=== PATIENT | male | born 1955 | race Caucasian/White ===

== ENCOUNTER 2019-12-26 10:12 | Inpatient (IN) | payer MEDICARE, OTHER ==
[2019-12-26] VITALS (10 sets, daily range): BP systolic 108–201; BP diastolic 58–99
[~2019-12-26] VITALS: Ht 182.9 cm; Wt 171.0 kg
[2019-12-26] MEDS ORDERED: FUROSEMIDE 40 MG/4 ML VIAL. IVP ONE (11:00)
[2019-12-26] MEDS ORDERED: IPRATRPIUM/ALBUTEROL 0.5/2.5MG 3 ML NEBU. NEB ONE (11:00)
[2019-12-26 11:01] LABS: BASO # 0.1 x10^3/uL (0.0-0.2); BASO % 1 % (0-3); EOS # 0.2 x10^3/uL (0.0-0.7); EOS % 2 % (0-3); HEMATOCRIT 41.8 % (39.0-53.0); HEMOGLOBIN 14.1 g/dL (13.0-17.5); LYMPH # 1.7 x10^3/uL (1.0-4.8); LYMPH % 14 % (24-48); MEAN CORPUSCULAR HEMOGLOBIN 29 pg (25-35); MEAN CORPUSCULAR HGB CONC 34 g/dL (31-37); MEAN CORPUSCULAR VOLUME 86 fL (79-100); MONO # 0.9 x10^3/uL (0.0-1.1); MONO % 8 % (0-9); NEUT # 8.9 x10^3/uL (1.8-7.7); NEUT % 75 % (31-73); PLATELET COUNT 239 x10^3/uL (140-400); RED BLOOD COUNT 4.88 x10^6/uL (4.30-5.70); RED CELL DISTRIBUTION WIDTH 14.6 % (11.5-14.5); WHITE BLOOD COUNT 11.8 x10^3/uL (4.0-11.0)
--- NOTE | 2019-12-26 11:08 | PHYS DOC ---
Past Medical History Past Medical History: A-Fib, CHF, COPD Past Surgical History: Other Additional Past Surgical Histo: HERNIA, LEFT HAND Smoking Status: Former Smoker Alcohol Use: Rarely Adult General Chief Complaint Chief Complaint: SHORTNESS OF BREATH HPI HPI 64-year-old male presenting to the emergency department today with shortness of breath. This started about a week ago. He had the flu 2 weeks ago and hasn't really been feeling himself since. Shortness of breath is worse with exertion. It is worse when he lays down. He has noticed swelling in his legs bilaterally. He denies chest pain or fevers. He denies unilateral leg pain or erythema. He denies history of DVT or PE. Review of systems negative for abdominal pain vomiting fevers chills. All other review of systems is negative. ED course: 64-year-old male presenting with shortness of breath found to be tachycardic in the emergency department. EKG shows sinus rhythm with a tachycardic rate. ST segments congruent. Not suggestive of acute ischemia. A flutter with 2:1 block considered. Chest x-ray and blood work ordered. Chest x- ray shows possible infiltrate versus home and her edema from acute CHF. Bilateral lower lobe airspace opacities possibly or flexing infectious versus inflammatory process pulmonary edema clinically favored over pneumonia. We did give the patient antibiotics however overall the patient's symptomatology is suggestive of a flutter with 21 block with tachycardia which is causing acute cardiogenic pulmonary edema. I spoke with nurse practitioner for cardiology who recommended 5 of IV metoprolol which we tried which did not change patient's heart rate. He then asked that we had digoxin. We did give the patient 40 mg of IV Lasix and broad-spectrum antibiotics. We'll admit the patient to the int ensive care unit until his arrhythmia can be more closely controlled. Spoke with the hospitalist who accepts the patient for admission. plasterer maintenance for cardiology was down in the emergency department seeing the patient , as did the hospitalist. D- dimer was elevated. Given the patient's creatinine level in GFR unable to do a CT angiogram. Will let the hospitalist pursue VQ scan and Dopplers of legs. Current Medications Current Medications Current Medications Medications (Trade) Dose Ordered Sig/Bruno Start Time Stop Time Status Last Admin Dose Admin Albuterol/ Ipratropium (Duoneb) 3 ml 1X ONCE 12/26/19 11:00 12/26/19 11:03 DC 12/26/19 11:16 3 ML Azithromycin 250 ml @ 250 mls/hr 1X ONCE 12/26/19 11:45 12/26/19 12:44 DC 12/26/19 12:16 250 MLS/HR Ceftriaxone Sodium (Rocephin) 1 gm 1X ONCE 12/26/19 11:45 12/26/19 11:46 DC 12/26/19 12:16 1 GM Digoxin (Lanoxin) 500 mcg 1X ONCE 12/26/19 13:15 12/26/19 13:16 DC Furosemide (Lasix) 40 mg 1X ONCE 12/26/19 11:00 12/26/19 11:03 DC 12/26/19 11:36 40 MG Metoprolol Tartrate (Lopressor Vial) 5 mg 1X ONCE 12/26/19 11:45 12/26/19 11:46 DC 12/26/19 11:41 5 MG Allergies Allergies Allergies Coded Allergies Type Severity Reaction Last Updated Verified sulfamethoxazole Allergy Severe Hives 12/26/19 Yes trimethoprim Allergy Severe Hives 12/26/19 Yes Physical Exam Physical Exam Constitutional: Well developed, well nourished, no acute distress, non-toxic appearance. HENT: Normocephalic, atraumatic, bilateral external ears normal, oropharynx moist, no oral exudates, nose normal. [] Eyes: PERRLA, EOMI, conjunctiva normal, no discharge. [] Neck: Normal range of motion, no tenderness, supple, no stridor. Cardiovascular: tachy heart rate w/ regular rhythm, no murmur [] Lungs & Thorax: wheezing on the right more than left. some crackles at the bases. Abdomen: Bowel sounds normal, soft, no tenderness, no masses, no pulsatile masses. [] Skin: Warm, dry, no erythema, no rash. Back: No tenderness, no CVA tenderness. [] Extremities: No tenderness, no cyanosis, no clubbing, ROM intact, no edema. [] Neurologic: Alert and oriented X 3, normal motor function, normal sensory function, no focal deficits noted. [] Psychologic: Affect normal, judgement normal, mood normal. [] Current Patient Data Vital Signs Vital Signs Date Time Temp Pulse Resp B/P (MAP) Pulse Ox O2 Delivery O2 Flow Rate FiO2 12/26/19 12:42 140 20 171/67 (101) 93 Room Air 12/26/19 10:25 98.1 98.1 Lab Values Laboratory Tests Test 12/26/19 10:47 White Blood Count 11.8 x10^3/uL (4.0-11.0) H Red Blood Count 4.88 x10^6/uL (4.30-5.70) Hemoglobin 14.1 g/dL (13.0-17.5) Hematocrit 41.8 % (39.0-53.0) Mean Corpuscular Volume 86 fL (79-100) Mean Corpuscular Hemoglobin 29 pg (25-35) Mean Corpuscular Hemoglobin Concent 34 g/dL (31-37) Red Cell Distribution Width 14.6 % (11.5-14.5) H Platelet Count 239 x10^3/uL (140-400) Neutrophils (%) (Auto) 75 % (31-73) H Lymphocytes (%) (Auto) 14 % (24-48) L Monocytes (%) (Auto) 8 % (0-9) Eosinophils (%) (Auto) 2 % (0-3) Basophils (%) (Auto) 1 % (0-3) Neutrophils # (Auto) 8.9 x10^3/uL (1.8-7.7) H Lymphocytes # (Auto) 1.7 x10^3/uL (1.0-4.8) Monocytes # (Auto) 0.9 x10^3/uL (0.0-1.1) Eosinophils # (Auto) 0.2 x10^3/uL (0.0-0.7) Basophils # (Auto) 0.1 x10^3/uL (0.0-0.2) Prothrombin Time 14.2 SEC (11.7-14.0) H Prothrombin Time INR 1.1 (0.8-1.1) Activated Partial Thromboplast Time 28 SEC (24-38) D-Dimer (Yokasta) 0.96 ug/mlFEU (0.00-0.50) H Sodium Level 141 mmol/L (136-145) Potassium Level 4.3 mmol/L (3.5-5.1) Chloride Level 103 mmol/L (98-107) Carbon Dioxide Level 26 mmol/L (21-32) Anion Gap 12 (6-14) Blood Urea Nitrogen 23 mg/dL (8-26) Creatinine 1.7 mg/dL (0.7-1.3) H Estimated GFR (Cockcroft-Gault) 40.9 Glucose Level 111 mg/dL (70-99) H Lactic Acid Level 1.8 mmol/L (0.4-2.0) Calcium Level 9.1 mg/dL (8.5-10.1) Total Bilirubin 0.9 mg/dL (0.2-1.0) Direct Bilirubin 0.3 mg/dL (0.0-0.2) H Aspartate Amino Transferase (AST) 18 U/L (15-37) Alanine Aminotransferase (ALT) 27 U/L (16-63) Alkaline Phosphatase 60 U/L (46-116) Troponin I Quantitative < 0.017 ng/mL (0.000-0.055) [id number]-Type Natriuretic Peptide 3867 pg/mL (0-124) H Total Protein 6.8 g/dL (6.4-8.2) Albumin 3.2 g/dL (3.4-5.0) L Lipase 103 U/L (73-393) Laboratory Tests 12/26/19 10:47 Laboratory Tests 12/26/19 10:47 EKG EKG [] Radiology/Procedures Radiology/Procedures [] Course & Med Decision Making Course & Med Decision Making Pertinent Labs and Imaging studies reviewed. (See chart for details) [] Dragon Disclaimer Dragon Disclaimer This electronic medical record was generated, in whole or in part, using a voice recognition dictation system. Departure Departure Impression: Primary Impression: Atrial flutter Additional Impression: Cardiogenic pulmonary edema Disposition: ADMITTED INPATIENT [facility]errals: TIMUR CHRISTOPHER MD (PCP) Critical Care Time Critical care time spent was 35 minutes exclusive of procedures. Time was spent evaluating the patient, ordering the administration of medications, reevaluating the patient, discussing with the admitting provider and documenting. Problem Qualifiers ELIZABETH ENCARNACION MD Dec 26, 2019 11:08
[2019-12-26 11:10] LABS: CALCIUM 9.1 mg/dL (8.5-10.1); CREATININE 1.7 mg/dL (0.7-1.3); GFR 40.9; POTASSIUM 4.3 mmol/L (3.5-5.1); PROTHROMBIN TIME PATIENT 14.2 SEC (11.7-14.0)
--- NOTE | 2019-12-26 11:14 | RAD ---
EXAM: Chest, single view. HISTORY: Chest pain. COMPARISON: None. FINDINGS: A frontal view of the chest is obtained. There is diffuse lower lobe predominant interstitial infiltrate with suspected small pleural effusions. There is a mildly enlarged cardiac silhouette. There is no pneumothorax. IMPRESSION: Diffuse lower lobe predominant interstitial infiltrate with small pleural effusions and prominent cardiac silhouette. Electronically signed by: Amie Watson MD (12/26/2019 11:11 AM) [facility] [place]
[2019-12-26] MEDS ORDERED: METOPROLOL TARTRATE 5 MG/5 ML VIAL. IVP ONE ×2 (11:15→11:45)
[2019-12-26 11:16] LABS: ALBUMIN 3.2 g/dL (3.4-5.0); DIRECT BILIRUBIN 0.3 mg/dL (0.0-0.2); TOTAL BILIRUBIN 0.9 mg/dL (0.2-1.0); TOTAL PROTEIN 6.8 g/dL (6.4-8.2)
[2019-12-26 11:29] LABS: D-DIMER 0.96 ug/mlFEU (0.00-0.50)
[2019-12-26] MEDS ORDERED: AZITHRMYCN 500MG IVPB FOR OMNI 250 ML IV ONE (11:45)
[2019-12-26] MEDS ORDERED: cefTRIAXone IV Push 1 GM VIAL. IVP ONE (11:45)
--- NOTE | 2019-12-26 12:48 | PDOC2 ---
CARDIAC CONSULT DATE OF CONSULT Date of Consult DATE: 12/26/19 TIME: 12:40 REASON FOR CONSULT Reason for Consult: CHF, tachycardia REFERRING PHYSICIAN Referring Physician: Viridiana SOURCE Source: Chart review, Patient HISTORY OF PRESENT ILLNESS HISTORY OF PRESENT ILLNESS This is a pleasant 64 yo male admitted for complains of shortness of breath. Reported that he has been having some SOA in the last 2 weeks. This has been worse last Tuesday to a point that it was hard for him to walk further distance without getting SOA. No chest pain and no sensation of palpitations. Denies any frequent dizziness. He does have leg swelling on both but is no different from his baseline and that this gets better with elevation and denies any recent long distance travel and no recent falls or injury or recent surgery. He did claimed possibly having the flu not too long ago. Positive for intermittent but nonproductive cough. Positive for PND, and orthopnea and no chills or fever. He takes 2 BP meds and he does have renal insufficiency. He has been noted with AFIB in the past 10 yrs ago initially but has not seen a founder president and ceo for at least 5 yrs and he does goes to his PCP. He does not take ASA regularly. No DM but takes statin for HLP. He was told that he may need a CPAP for ANALI in remote past but decided not to pursue this. His BP particularly his DBP has been ranging from 90-100s. No hx of CAD, VTE nor CVA. PAST MEDICAL HISTORY Cardiovascular: AFIB (initially noted 10 yrs ago), HTN, Hyperlipidemia Pulmonary: Asthma, COPD CENTRAL NERVOUS SYSTEM: Other (No pertinent history) GI: No pertinent hx Heme/Onc: No pertinent hx Hepatobiliary: No pertinent hx Psych: No pertinent hx Musculoskeletal: Osteoarthritis Rheumatologic: No pertinent hx Infectious disease: No pertinent hx ENT: No pertinent hx Renal/: Chronic renal insuff (CKD3) Endocrine: No pertinent hx Dermatology: No pertinent hx PAST SURGICAL HISTORY Past Surgical History: Arthroscopy (left hand), Hernia Repair (ventral) FAMILY HISTORY Family History noncontributory SOCIAL HISTORY Smoke: Quit ALCOHOL: none Drugs: None Lives: with Family (sister) CURRENT MEDICATIONS CURRENT MEDICATIONS Current Medications Medications (Trade) Dose Ordered Sig/Bruno Route PRN Reason Start Time Stop Time Status Last Admin Dose Admin Furosemide (Lasix) 40 mg 1X ONCE IVP 12/26/19 11:00 12/26/19 11:03 DC 12/26/19 11:36 Albuterol/ Ipratropium (Duoneb) 3 ml 1X ONCE NEB 12/26/19 11:00 12/26/19 11:03 DC 12/26/19 11:16 Metoprolol Tartrate (Lopressor Vial) 5 mg 1X ONCE IVP 12/26/19 11:45 12/26/19 11:46 DC 12/26/19 11:41 Azithromycin 250 ml @ 250 mls/hr 1X ONCE IV 12/26/19 11:45 12/26/19 12:44 12/26/19 12:16 Ceftriaxone Sodium (Rocephin) 1 gm 1X ONCE IVP 12/26/19 11:45 12/26/19 11:46 DC 12/26/19 12:16 ALLERGIES ALLERGIES: Coded Allergies: sulfamethoxazole (Verified Allergy, Severe, Hives, 12/26/19) trimethoprim (Verified Allergy, Severe, Hives, 12/26/19) ROS Review of System 14 point ROS evaluated with pertinent positives noted per HPI PHYSICAL EXAM General: Alert, Oriented X3, Cooperative, No acute distress HEENT: Mucous membr. moist/pink Lungs: Other (basilar crackles) Heart: Regular rate, Other (distant heart sonds unable to appreciate due to body habitus) Extremities: No cyanosis, Other (2+ bilateral LE pitting edema) Skin: No breakdown, No significant lesion Neuro: Normal speech, Sensation intact Psych/Mental Status: Mental status NL, Mood NL MUSCULOSKELETAL: Osteoarthritic changes both hands VITALS/I&O VITALS/I&O: Vital Signs Date Time Temp Pulse Resp B/P (MAP) Pulse Ox O2 Delivery O2 Flow Rate FiO2 12/26/19 11:41 140 137/77 12/26/19 11:13 94 Room Air 12/26/19 10:25 98.1 20 98.1 LABS Lab: Laboratory Tests Test 12/26/19 10:47 White Blood Count 11.8 x10^3/uL (4.0-11.0) H Red Blood Count 4.88 x10^6/uL (4.30-5.70) Hemoglobin 14.1 g/dL (13.0-17.5) Hematocrit 41.8 % (39.0-53.0) Mean Corpuscular Volume 86 fL (79-100) Mean Corpuscular Hemoglobin 29 pg (25-35) Mean Corpuscular Hemoglobin Concent 34 g/dL (31-37) Red Cell Distribution Width 14.6 % (11.5-14.5) H Platelet Count 239 x10^3/uL (140-400) Neutrophils (%) (Auto) 75 % (31-73) H Lymphocytes (%) (Auto) 14 % (24-48) L Monocytes (%) (Auto) 8 % (0-9) Eosinophils (%) (Auto) 2 % (0-3) Basophils (%) (Auto) 1 % (0-3) Neutrophils # (Auto) 8.9 x10^3/uL (1.8-7.7) H Lymphocytes # (Auto) 1.7 x10^3/uL (1.0-4.8) Monocytes # (Auto) 0.9 x10^3/uL (0.0-1.1) Eosinophils # (Auto) 0.2 x10^3/uL (0.0-0.7) Basophils # (Auto) 0.1 x10^3/uL (0.0-0.2) Prothrombin Time 14.2 SEC (11.7-14.0) H Prothrombin Time INR 1.1 (0.8-1.1) Activated Partial Thromboplast Time 28 SEC (24-38) D-Dimer (Yokasta) 0.96 ug/mlFEU (0.00-0.50) H Sodium Level 141 mmol/L (136-145) Potassium Level 4.3 mmol/L (3.5-5.1) Chloride Level 103 mmol/L (98-107) Carbon Dioxide Level 26 mmol/L (21-32) Anion Gap 12 (6-14) Blood Urea Nitrogen 23 mg/dL (8-26) Creatinine 1.7 mg/dL (0.7-1.3) H Estimated GFR (Cockcroft-Gault) 40.9 Glucose Level 111 mg/dL (70-99) H Calcium Level 9.1 mg/dL (8.5-10.1) Total Bilirubin 0.9 mg/dL (0.2-1.0) Direct Bilirubin 0.3 mg/dL (0.0-0.2) H Aspartate Amino Transferase (AST) 18 U/L (15-37) Alanine Aminotransferase (ALT) 27 U/L (16-63) Alkaline Phosphatase 60 U/L (46-116) Troponin I Quantitative < 0.017 ng/mL (0.000-0.055) MC-Wke-T-Type Natriuretic Peptide 3867 pg/mL (0-124) H Total Protein 6.8 g/dL (6.4-8.2) Albumin 3.2 g/dL (3.4-5.0) L Lipase 103 U/L (73-393) Laboratory Tests 12/26/19 10:47 Laboratory Tests 12/26/19 10:47 ASSESSMENT/PLAN ASSESSMENT/PLAN 1. Acute diastolic CHF: likely precipitated by #2-3 and ANALI 2. HTN urgency 3. Arrhythmia: appears to be atrial flutter with RVR 4. COPD 5. CKD3: unclear baseline Cr 6. Hx of ANALI; no CPAP use 7. Morbid obesity 8. Remote hx of PAFIB 9. Chronic Venous insufficiency 10. HLP Recommendations 1. Lasix therapy. Lopressor IV and if refractory the will provide with digoxin. 2. TSH, lipids Mg. V/Q pending..TTE once HR is better 3. Will trend BP and will titrate meds once home regimen is reviewed. ASA for now, monitor rhythm 4. Will need outpt ANALI workup and wt reduction SULAIMAN GRAVES APRN Dec 26, 2019 12:48
[2019-12-26] MEDS ORDERED: DIGOXIN IV 500 MCG/2 ML AMPUL. IV ONE (13:15)
--- NOTE | 2019-12-26 13:21 | RAD ---
EXAM: CT Chest without IV contrast CLINICAL HISTORY: Pneumonia, shortness of air COMPARISON: None. TECHNIQUE: CT of the chest without intravenous contrast. Axial, coronal and sagittal reformatted images were generated. ---PQRS compliance statement - One or more of the following individualized dose reduction techniques were utilized for this study: 1. Automated exposure control 2. Adjustment of the mA and/or kV according to patient size 3. Use of iterative reconstruction technique--- FINDINGS: Lack of intravenous contrast limits evaluation of solid organs, vasculature, and lymph nodes. Chest: Heart is mildly enlarged. Coronary artery calcifications are seen. Aortic root calcifications are noted. Small bilateral pleural effusions. Dependent opacities bilaterally likely atelectasis. In addition there are regions of groundglass and solid airspace opacities in the lower lobes suspicious for developing atypical infectious or inflammatory process. Linear opacities lower lobes, middle lobe and lingula likely scarring/atelectasis. There is also mild interstitial prominence particularly in the lung bases. Evaluation of mediastinal and hilar lymphadenopathy is limited on this noncontrast examination. Within these constraints there are suspected mildly prominent hilar lymph nodes, may be reactive. Bilateral gynecomastia. No axillary lymphadenopathy. Visualized Upper abdomen: Upper abdomen is grossly unremarkable. Bones: Degenerative changes of spine are seen. IMPRESSION: 1. Bilateral lower lobe predominant airspace opacities with bilateral pleural effusions, favored to represent infectious or inflammatory process. 2. However as mild interstitial prominence is seen predominantly in the lower lungs, pulmonary edema is also a consideration. 3. Bilateral gynecomastia. 4. Mild cardiac megaly. Electronically signed by: Con Hwang MD (12/26/2019 1:18 PM) [facility]
[2019-12-26] MEDS ORDERED: ASPIRIN ENTERIC COATED 325 MG TABLET.DR. PO ONE (13:30)
[2019-12-26 14:09] LABS: BILIRUBIN,URINE NEGATIVE (NEG); CLARITY,URINE CLEAR; COLOR,URINE YELLOW; NITRITE,URINE NEGATIVE (NEG); PH,URINE 6.5; PROTEIN,URINE NEGATIVE (NEG-TRACE); UROBILINOGEN,URINE 0.2 mg/dL (0.2 mg/dL)
[2019-12-26 14:21] LABS: BACTERIA,URINE 0 /HPF (0-FEW); RBC,URINE 0 /HPF (0-2); SQUAMOUS EPITHELIAL CELL,UR OCC /LPF; WBC,URINE 0 /HPF (0-4)
--- NOTE | 2019-12-26 14:30 | RAD ---
NUCLEAR MEDICINE VENTILATION PERFUSION SCAN History: Shortness of air x3 days. Comparison: CT chest without contrast, earlier same day. Technique: Patient initially ventilated with 9.8 mCi of xenon-133 gas. Anterior and posterior imaging of the lungs during initial breath-hold, equilibrium and, washout phase images is performed. Perfusion portion performed after intravenous administration of 5.5 mCi Technetium 99m MAA. Multiple projection planar images of the lungs were obtained. Findings: The initial breath-hold ventilation images are homogeneous. There is no retention of tracer on the washout phase images. Perfusion images demonstrate no mismatched segmental perfusion defects. IMPRESSION: Normal VQ scan. Negative for pulmonary embolism. Electronically signed by: Steve Bautista MD (12/26/2019 2:27 PM) [id number]
[2019-12-26] MEDS ORDERED: AMLO-308 PO (14:45)
[2019-12-26] MEDS ORDERED: ATOR20TA58 PO (14:45)
[2019-12-26] MEDS ORDERED: CARV25TA2 PO (14:45)
--- NOTE | 2019-12-26 14:45 | EKG ---
[facility] [address] [place] [address] Test Date: 2019-12-26 Test Time: 10:40:20 Pat Name: MILENA WESLEY Department: Room: Gender: M Manager Resort: : 1955 Requested By: ELIZABETH ENCARNACION Order Number: [id number] Reading MD: Measurements Intervals Junction Rate: 139 P: 72 NM: 110 QRS: -31 QRSD: 96 T: -138 QT: 308 QTc: 473 Interpretive Statements SINUS TACHYCARDIA ABNORMAL LEFT AXIS DEVIATION R-S TRANSITION ZONE IN V LEADS DISPLACED TO THE LEFT LVH WITH REPOLARIZATION ABNORMALITY ABNORMAL ECG No previous ECG available for comparison
--- NOTE | 2019-12-26 15:11 | PDOC1 ---
History and Physical Date of Admission Date of Admission 12/26/2019 Identification/Chief Complaint Chief Complaint I could not breathe History of Present Illness History of Present Illness Patient is a 64-year-old gentleman with past medical history of congestive heart failure with reduced ejection fraction that subsequently recovered as per the patient's report. The patient also has essential hypertension without vascular morbidities on top of being morbidly obese. The patient had been in his usual state of health until approximately 2-3 weeks prior to his admission when he started noticing worsening dyspnea upon exertion. The patient had to repeatedly soon low down and stop at times while doing activities shoveling snow or even just walking long distances. The patient also reports versus nocturnal dyspnea nor orthopnea has been reported. The patient denies increased salt intake and he denies dietary transgressions nor being noncompliant with his medications. The patient at the time my evaluation is in no apparent distress nevertheless he is having probably increase in his work of breathing and tachycardia. The patient is able to finish sentences. We were asked to admit the patient for further treatment. Past Medical History Cardiovascular: AFIB (initially noted 10 yrs ago), HTN, Hyperlipidemia Pulmonary: Asthma, COPD CENTRAL NERVOUS SYSTEM: Other (No pertinent history) GI: No pertinent hx Heme/Onc: No pertinent hx Hepatobiliary: No pertinent hx Psych: No pertinent hx Rheumatologic: No pertinent hx Infectious disease: No pertinent hx ENT: No pertinent hx Renal/: Chronic renal insuff (CKD3) Endocrine: No pertinent hx Dermatology: No pertinent hx Past Surgical History Past Surgical History: Arthroscopy (left hand), Hernia Repair (ventral) Social History Smoke: Quit ALCOHOL: none Drugs: None Current Problem List Problem List Problems Medical Problems: (1) Atrial flutter Status: Acute (2) Cardiogenic pulmonary edema Status: Acute Current Medications Current Medications Current Medications Medications (Trade) Dose Ordered Sig/Bruno Start Time Stop Time Status Last Admin Dose Admin Albuterol/ Ipratropium (Duoneb) 3 ml 1X ONCE 12/26/19 11:00 12/26/19 11:03 DC 12/26/19 11:16 3 ML Aspirin (Ecotrin) 325 mg 1X ONCE 12/26/19 13:30 12/26/19 13:31 DC 12/26/19 13:35 325 MG Azithromycin 250 ml @ 250 mls/hr 1X ONCE 12/26/19 11:45 12/26/19 12:44 DC 12/26/19 12:16 250 MLS/HR Ceftriaxone Sodium (Rocephin) 1 gm 1X ONCE 12/26/19 11:45 12/26/19 11:46 DC 12/26/19 12:16 1 GM Digoxin (Lanoxin) 500 mcg 1X ONCE 12/26/19 13:15 12/26/19 13:16 DC 12/26/19 13:23 500 MCG Furosemide (Lasix) 40 mg 1X ONCE 12/26/19 11:00 12/26/19 11:03 DC 12/26/19 11:36 40 MG Metoprolol Tartrate (Lopressor Vial) 5 mg 1X ONCE 12/26/19 11:45 12/26/19 11:46 DC 12/26/19 11:41 5 MG Allergies Allergies Allergies Coded Allergies Type Severity Reaction Last Updated Verified sulfamethoxazole Allergy Severe Hives 12/26/19 Yes trimethoprim Allergy Severe Hives 12/26/19 Yes ROS Review of System CONSTITUTIONAL: No fever or chills EYES: No recent changes SKIN: No rash or itching CARDIOVASCULAR: No chest pain, syncope, palpitations, or edema RESPIRATORY: No SOB or cough GASTROINTESTINAL: No nausea, vomiting or abdominal pain NEUROLOGICAL: No headaches or weakness ENDOCRINE: No cold or heat intolerance GENITOURINARY: No urgency or frequency of urination MUSCULOSKELETAL: No back pain or joint pain LYMPHATICS: No enlarged lymph nodes PSYCHIATRIC: No anxiety or depression Physical Exam Physical Exam GEN.: No apparent distress. Alert and oriented. HEENT: Head is normocephalic, atraumatic NECK: Supple. LUNGS: Clear to auscultation. HEART: RRR, S1, S2 present. Peripheral pulses intact ABDOMEN: Soft, nontender. Positive bowel sounds. EXTREMITIES: Without any cyanosis. NEUROLOGIC: Normal speech, normal tone PSYCHIATRIC: Normal affect, normal mood. SKIN: No ulcerations Vitals Vitals Vital Signs Date Time Temp Pulse Resp B/P (MAP) Pulse Ox O2 Delivery O2 Flow Rate FiO2 12/26/19 14:15 97.9 129 27 134/85 (101) 96 Nasal Cannula 2.0 97.9 Labs Labs Laboratory Tests Test 12/26/19 10:47 12/26/19 13:37 White Blood Count 11.8 x10^3/uL (4.0-11.0) Red Blood Count 4.88 x10^6/uL (4.30-5.70) Hemoglobin 14.1 g/dL (13.0-17.5) Hematocrit 41.8 % (39.0-53.0) Mean Corpuscular Volume 86 fL (79-100) Mean Corpuscular Hemoglobin 29 pg (25-35) Mean Corpuscular Hemoglobin Concent 34 g/dL (31-37) Red Cell Distribution Width 14.6 % (11.5-14.5) Platelet Count 239 x10^3/uL (140-400) Neutrophils (%) (Auto) 75 % (31-73) Lymphocytes (%) (Auto) 14 % (24-48) Monocytes (%) (Auto) 8 % (0-9) Eosinophils (%) (Auto) 2 % (0-3) Basophils (%) (Auto) 1 % (0-3) Neutrophils # (Auto) 8.9 x10^3/uL (1.8-7.7) Lymphocytes # (Auto) 1.7 x10^3/uL (1.0-4.8) Monocytes # (Auto) 0.9 x10^3/uL (0.0-1.1) Eosinophils # (Auto) 0.2 x10^3/uL (0.0-0.7) Basophils # (Auto) 0.1 x10^3/uL (0.0-0.2) Prothrombin Time 14.2 SEC (11.7-14.0) Prothromb Time International Ratio 1.1 (0.8-1.1) Activated Partial Thromboplast Time 28 SEC (24-38) D-Dimer (Yokasta) 0.96 ug/mlFEU (0.00-0.50) Sodium Level 141 mmol/L (136-145) Potassium Level 4.3 mmol/L (3.5-5.1) Chloride Level 103 mmol/L (98-107) Carbon Dioxide Level 26 mmol/L (21-32) Anion Gap 12 (6-14) Blood Urea Nitrogen 23 mg/dL (8-26) Creatinine 1.7 mg/dL (0.7-1.3) Estimated GFR (Cockcroft-Gault) 40.9 Glucose Level 111 mg/dL (70-99) Lactic Acid Level 1.8 mmol/L (0.4-2.0) Calcium Level 9.1 mg/dL (8.5-10.1) Magnesium Level 1.9 mg/dL (1.8-2.4) Total Bilirubin 0.9 mg/dL (0.2-1.0) Direct Bilirubin 0.3 mg/dL (0.0-0.2) Aspartate Amino Transf (AST/SGOT) 18 U/L (15-37) Alanine Aminotransferase (ALT/SGPT) 27 U/L (16-63) Alkaline Phosphatase 60 U/L (46-116) Troponin I Quantitative < 0.017 ng/mL (0.000-0.055) LV-Yry-N-Type Natriuretic Peptide 3867 pg/mL (0-124) Total Protein 6.8 g/dL (6.4-8.2) Albumin 3.2 g/dL (3.4-5.0) Lipase 103 U/L (73-393) Thyroid Stimulating Hormone (TSH) 4.159 uIU/mL (0.358-3.74) Urine Collection Type Unknown Urine Color Yellow Urine Clarity Clear Urine pH 6.5 Urine Specific [place] 1.010 Urine Protein Negative mg/dL (NEG-TRACE) Urine Glucose (UA) Negative mg/dL (NEG) Urine Ketones (Stick) Negative mg/dL (NEG) Urine Blood Negative (NEG) Urine Nitrite Negative (NEG) Urine Bilirubin Negative (NEG) Urine Urobilinogen Dipstick 0.2 mg/dL (0.2 mg/dL) Urine Leukocyte Esterase Negative (NEG) Urine RBC 0 /HPF (0-2) Urine WBC 0 /HPF (0-4) Urine Squamous Epithelial Cells Occ /LPF Urine Bacteria 0 /HPF (0-FEW) Urine Mucus Slight /LPF Laboratory Tests Test 12/26/19 10:47 12/26/19 13:37 White Blood Count 11.8 x10^3/uL (4.0-11.0) Red Blood Count 4.88 x10^6/uL (4.30-5.70) Hemoglobin 14.1 g/dL (13.0-17.5) Hematocrit 41.8 % (39.0-53.0) Mean Corpuscular Volume 86 fL (79-100) Mean Corpuscular Hemoglobin 29 pg (25-35) Mean Corpuscular Hemoglobin Concent 34 g/dL (31-37) Red Cell Distribution Width 14.6 % (11.5-14.5) Platelet Count 239 x10^3/uL (140-400) Neutrophils (%) (Auto) 75 % (31-73) Lymphocytes (%) (Auto) 14 % (24-48) Monocytes (%) (Auto) 8 % (0-9) Eosinophils (%) (Auto) 2 % (0-3) Basophils (%) (Auto) 1 % (0-3) Neutrophils # (Auto) 8.9 x10^3/uL (1.8-7.7) Lymphocytes # (Auto) 1.7 x10^3/uL (1.0-4.8) Monocytes # (Auto) 0.9 x10^3/uL (0.0-1.1) Eosinophils # (Auto) 0.2 x10^3/uL (0.0-0.7) Basophils # (Auto) 0.1 x10^3/uL (0.0-0.2) Prothrombin Time 14.2 SEC (11.7-14.0) Prothromb Time International Ratio 1.1 (0.8-1.1) Activated Partial Thromboplast Time 28 SEC (24-38) D-Dimer (Yokasta) 0.96 ug/mlFEU (0.00-0.50) Sodium Level 141 mmol/L (136-145) Potassium Level 4.3 mmol/L (3.5-5.1) Chloride Level 103 mmol/L (98-107) Carbon Dioxide Level 26 mmol/L (21-32) Anion Gap 12 (6-14) Blood Urea Nitrogen 23 mg/dL (8-26) Creatinine 1.7 mg/dL (0.7-1.3) Estimated GFR (Cockcroft-Gault) 40.9 Glucose Level 111 mg/dL (70-99) Lactic Acid Level 1.8 mmol/L (0.4-2.0) Calcium Level 9.1 mg/dL (8.5-10.1) Magnesium Level 1.9 mg/dL (1.8-2.4) Total Bilirubin 0.9 mg/dL (0.2-1.0) Direct Bilirubin 0.3 mg/dL (0.0-0.2) Aspartate Amino Transf (AST/SGOT) 18 U/L (15-37) Alanine Aminotransferase (ALT/SGPT) 27 U/L (16-63) Alkaline Phosphatase 60 U/L (46-116) Troponin I Quantitative < 0.017 ng/mL (0.000-0.055) ZQ-Qbt-V-Type Natriuretic Peptide 3867 pg/mL (0-124) Total Protein 6.8 g/dL (6.4-8.2) Albumin 3.2 g/dL (3.4-5.0) Lipase 103 U/L (73-393) Thyroid Stimulating Hormone (TSH) 4.159 uIU/mL (0.358-3.74) Urine Collection Type Unknown Urine Color Yellow Urine Clarity Clear Urine pH 6.5 Urine Specific [place] 1.010 Urine Protein Negative mg/dL (NEG-TRACE) Urine Glucose (UA) Negative mg/dL (NEG) Urine Ketones (Stick) Negative mg/dL (NEG) Urine Blood Negative (NEG) Urine Nitrite Negative (NEG) Urine Bilirubin Negative (NEG) Urine Urobilinogen Dipstick 0.2 mg/dL (0.2 mg/dL) Urine Leukocyte Esterase Negative (NEG) Urine RBC 0 /HPF (0-2) Urine WBC 0 /HPF (0-4) Urine Squamous Epithelial Cells Occ /LPF Urine Bacteria 0 /HPF (0-FEW) Urine Mucus Slight /LPF VTE Prophylaxis Ordered VTE Prophylaxis Devices: No VTE Pharmacological Prophylaxi: Yes Assessment/Plan Assessment/Plan Hypertensive urgency Acute exacerbation of congestive heart failure which seems to be chronic most likely systolic dysfunction combined with diastolic dysfunction Morbid obesity with a BMI of 51 Obesity hypoventilation syndrome Essential hypertension Leukocytosis Elevated d-dimer Chronic kidney disease stage IIIA Plan We'll order echocardiogram Venous Doppler ultrasound of the lower extremities Questionable bibasilar infiltrates on x-ray which will require a CT of the chest noncontrast given renal dysfunction Resume home medications Further recommendations based on the clinical course We'll start diuresis with Bumex DVT prophylaxis with Lovenox ERICK BOUCHER MD Dec 26, 2019 15:11
[2019-12-26] MEDS ORDERED: ACETAMINOPHEN 325 MG TABLET. PO PRN (15:15)
[2019-12-26] MEDS ORDERED: ONDANSETRON PF 4 MG/2 ML VIAL. IV PRN (15:15)
[2019-12-26] MEDS ORDERED: ALBUTEROL SULFATE 2.5 MG/3 ML NEBU. NEB PRN (15:15)
[2019-12-26] MEDS ORDERED: guaiFENesin ORAL 200 MG/10 ML LIQUID. PO PRN (15:15)
[2019-12-26] MEDS ORDERED: BUMETANIDE 1 MG/4 ML VIAL. IV SCH (15:15)
[2019-12-26] MEDS ORDERED: DOCUSATE SODIUM 100 MG CAPSULE. PO PRN (15:15)
--- NOTE | 2019-12-26 16:27 | RAD ---
EXAM: Bilateral lower extremity venous Doppler sonogram. HISTORY: Pain and swelling. TECHNIQUE: Bur[place]on scale and color Doppler sonographic evaluation of the bilateral lower extremity veins with spectral waveform analysis was performed. FINDINGS: There is normal color flow, normal compressibility and there are normal spectral waveforms in the common femoral, superficial femoral, popliteal, posterior tibial and greater saphenous veins. IMPRESSION: No Doppler evidence of lower extremity deep venous thrombosis. Electronically signed by: Amie Watson MD (12/26/2019 4:25 PM) [facility] [place]
[2019-12-26] MEDS ORDERED: CARVEDILOL 12.5 MG TABLET. PO SCH (17:00)
[2019-12-26] MEDS ORDERED: LOSARTAN POTASSIUM 50 MG TABLET. PO SCH (17:00)
[2019-12-26] MEDS ORDERED: amLODIPine BESYLATE 5 MG TABLET PO SCH (17:00)
[2019-12-26] MEDS: METOPROLOL TART IMMED RELEASE 25 MG TABLET. PO SCH ×2 (17:22→23:43)
--- NOTE | 2019-12-26 18:55 | NUR ---
Dr. Green call for AFIB-AFlutter. Per Dr. Green, continue with Metoprolol 25 mg every 6 hours.
[2019-12-26] MEDS ORDERED: ENOXAPARIN 40 MG/0.4 ML SYRINGE. SQ SCH (21:00)
[2019-12-26] MEDS: ATORVASTATIN CALCIUM 20 MG TABLET PO SCH (22:03)
[2019-12-27] VITALS (22 sets, daily range): BP systolic 127–212; BP diastolic 70–133
[2019-12-27 05:30] LABS: BASO # 0.1 x10^3/uL (0.0-0.2); BASO % 1 % (0-3); EOS # 0.2 x10^3/uL (0.0-0.7); EOS % 2 % (0-3); HEMATOCRIT 39.6 % (39.0-53.0); HEMOGLOBIN 13.2 g/dL (13.0-17.5); LYMPH # 1.6 x10^3/uL (1.0-4.8); LYMPH % 18 % (24-48); MEAN CORPUSCULAR HEMOGLOBIN 29 pg (25-35); MEAN CORPUSCULAR HGB CONC 33 g/dL (31-37); MEAN CORPUSCULAR VOLUME 85 fL (79-100); MONO # 0.7 x10^3/uL (0.0-1.1); MONO % 8 % (0-9); NEUT # 6.5 x10^3/uL (1.8-7.7); NEUT % 71 % (31-73); PLATELET COUNT 200 x10^3/uL (140-400); RED BLOOD COUNT 4.63 x10^6/uL (4.30-5.70); RED CELL DISTRIBUTION WIDTH 14.6 % (11.5-14.5); WHITE BLOOD COUNT 9.1 x10^3/uL (4.0-11.0)
[2019-12-27 05:50] LABS: CALCIUM 8.5 mg/dL (8.5-10.1); CREATININE 1.6 mg/dL (0.7-1.3); GFR 43.9; POTASSIUM 3.9 mmol/L (3.5-5.1)
[2019-12-27 05:52] LABS: CHOLESTEROL/HDL RATIO 2.8
[2019-12-27] MEDS: METOPROLOL TART IMMED RELEASE 25 MG TABLET. PO SCH ×4 (06:02→23:37)
[2019-12-27] MEDS ORDERED: PERFLUTREN PROTEIN-A MICROSPHR 0.22 MG/ML 3 ML VIAL. IV ONE (08:02)
[2019-12-27] MEDS: BUMETANIDE 1 MG/4 ML VIAL. IV SCH (08:04)
[2019-12-27] MEDS ORDERED: DIGOXIN IV 500 MCG/2 ML AMPUL. IV ONE (09:45)
[2019-12-27] MEDS: dilTIAZem INJ 125 MG in IV NORMAL SALINE 100ML 100 ML IV PRN (10:43)
--- NOTE | 2019-12-27 11:11 | PDOC ---
CARDIO Progress Notes Date and Time Date of Service 12/27/2019 Time of Evaluation 1040 Subjective Subjective: No Chest Pain, No Palpitations, Other (SOA much better) Vitals Vitals Vital Signs Date Time Temp Pulse Resp B/P (MAP) Pulse Ox O2 Delivery O2 Flow Rate FiO2 12/27/19 09:58 145 140/98 12/27/19 09:00 21 94 Nasal Cannula 2.0 12/27/19 08:00 97.7 97.7 Weight Weight [ ] Input and Output Intake and Output Intake and Output 12/27/19 07:04 Intake Total 250 ml Output Total 2150 ml Balance -1900 ml Intake IV Total 250 ml Output Urine Total 2150 ml # Voids 1 Laboratory Labs Laboratory Tests Test 12/26/19 13:37 12/27/19 04:10 Urine Collection Type Unknown Urine Color Yellow Urine Clarity Clear Urine pH 6.5 Urine Specific [place] 1.010 Urine Protein Negative mg/dL (NEG-TRACE) Urine Glucose (UA) Negative mg/dL (NEG) Urine Ketones (Stick) Negative mg/dL (NEG) Urine Blood Negative (NEG) Urine Nitrite Negative (NEG) Urine Bilirubin Negative (NEG) Urine Urobilinogen Dipstick 0.2 mg/dL (0.2 mg/dL) Urine Leukocyte Esterase Negative (NEG) Urine RBC 0 /HPF (0-2) Urine WBC 0 /HPF (0-4) Urine Squamous Epithelial Cells Occ /LPF Urine Bacteria 0 /HPF (0-FEW) Urine Mucus Slight /LPF White Blood Count 9.1 x10^3/uL (4.0-11.0) Red Blood Count 4.63 x10^6/uL (4.30-5.70) Hemoglobin 13.2 g/dL (13.0-17.5) Hematocrit 39.6 % (39.0-53.0) Mean Corpuscular Volume 85 fL (79-100) Mean Corpuscular Hemoglobin 29 pg (25-35) Mean Corpuscular Hemoglobin Concent 33 g/dL (31-37) Red Cell Distribution Width 14.6 % (11.5-14.5) Platelet Count 200 x10^3/uL (140-400) Neutrophils (%) (Auto) 71 % (31-73) Lymphocytes (%) (Auto) 18 % (24-48) Monocytes (%) (Auto) 8 % (0-9) Eosinophils (%) (Auto) 2 % (0-3) Basophils (%) (Auto) 1 % (0-3) Neutrophils # (Auto) 6.5 x10^3/uL (1.8-7.7) Lymphocytes # (Auto) 1.6 x10^3/uL (1.0-4.8) Monocytes # (Auto) 0.7 x10^3/uL (0.0-1.1) Eosinophils # (Auto) 0.2 x10^3/uL (0.0-0.7) Basophils # (Auto) 0.1 x10^3/uL (0.0-0.2) Sodium Level 143 mmol/L (136-145) Potassium Level 3.9 mmol/L (3.5-5.1) Chloride Level 107 mmol/L (98-107) Carbon Dioxide Level 29 mmol/L (21-32) Anion Gap 7 (6-14) Blood Urea Nitrogen 22 mg/dL (8-26) Creatinine 1.6 mg/dL (0.7-1.3) Estimated GFR (Cockcroft-Gault) 43.9 Glucose Level 80 mg/dL (70-99) Calcium Level 8.5 mg/dL (8.5-10.1) Triglycerides Level 56 mg/dL (0-150) Cholesterol Level 85 mg/dL (0-200) LDL Cholesterol, Calculated 44 mg/dL (0-100) VLDL Cholesterol, Calculated 11 mg/dL (0-40) Non-HDL Cholesterol Calculated 55 mg/dL (0-129) HDL Cholesterol 30 mg/dL (40-60) Cholesterol/HDL Ratio 2.8 Physical Exam HEENT: Neck Supple W Full Motion Chest: Symmetric LUNGS: Other (diminsihed bases) Heart: RRR (atrial flutter) Abdomen: Soft N/T Extremities: Other (2+ bilateral LE pitting edema) Neurology: alert, oriented, follow commands Assessment Assessment 1. Acute systolic/diastolic CHF: likely precipitated by #2-3 and ANALI. SOA better 2. HTN urgency: improved 3. Atrial flutter with RVR 4. COPD 5. CKD3: Cr stable at 1.6 6. Hx of ANALI; no CPAP use 7. Morbid obesity 8. Remote hx of PAFIB 9. Chronic Venous insufficiency 10. HLP 11. Cardiomyopathy: EF at 25% possibly tachy induced CM Recommendations 1. Continue bumex therapy 2. Continue metoprolol. Cardizem drip for now. Dig IV x1. Will consider amiodarone therapy. 3. Start on heparing drip, will consider for BRAD/CVN tomorrow. 4. Will need outpt ANALI workup and wt reduction 5. Will consider for outpt stress test. SULAIMAN GRAVES APRN Dec 27, 2019 11:11
[2019-12-27] MEDS ORDERED: HEPARIN for IV BOLUS 10,000 UNIT/10 ML VIAL. IV PRN (11:30)
--- NOTE | 2019-12-27 11:53 | PDOC ---
[employer] PROGRESS NOTE Chief Complaint Chief Complaint Acute diastolic heart failure HTN urgency Arrhythmia: appears to be atrial flutter with RVR COPD CKD3: unclear baseline Cr Hx of ANALI; no CPAP use Morbid obesity Remote hx of PAFIB Chronic Venous insufficiency HLP History of Present Illness History of Present Illness Patient was seen and examined in the ICU Chart including recent doppler and V/Q study were reviewed Progress was d/w RN Patient on IV diuretic and Cardizem drip Vitals/I&O Vitals/I&O: Vital Signs Date Time Temp Pulse Resp B/P (MAP) Pulse Ox O2 Delivery O2 Flow Rate FiO2 12/27/19 09:58 145 140/98 12/27/19 09:00 21 94 Nasal Cannula 2.0 12/27/19 08:00 97.7 97.7 I & O 12/26/19 12/26/19 12/27/19 15:00 23:00 07:00 Intake Total 250 ml Output Total 650 ml 900 ml 600 ml Balance -400 ml -900 ml -600 ml Physical Exam General: Alert, Oriented X3, Cooperative, No acute distress Heart: Regular rate, Other (distant heart sonds unable to appreciate due to body habitus) Lungs: Clear Abdomen: Soft Extremities: No cyanosis, Other (2+ bilateral LE pitting edema) Skin: No breakdown, No significant lesion Labs Labs: Laboratory Tests Test 12/26/19 13:37 12/27/19 04:10 Urine Collection Type Unknown Urine Color Yellow Urine Clarity Clear Urine pH 6.5 Urine Specific [place] 1.010 Urine Protein Negative mg/dL (NEG-TRACE) Urine Glucose (UA) Negative mg/dL (NEG) Urine Ketones (Stick) Negative mg/dL (NEG) Urine Blood Negative (NEG) Urine Nitrite Negative (NEG) Urine Bilirubin Negative (NEG) Urine Urobilinogen Dipstick 0.2 mg/dL (0.2 mg/dL) Urine Leukocyte Esterase Negative (NEG) Urine RBC 0 /HPF (0-2) Urine WBC 0 /HPF (0-4) Urine Squamous Epithelial Cells Occ /LPF Urine Bacteria 0 /HPF (0-FEW) Urine Mucus Slight /LPF White Blood Count 9.1 x10^3/uL (4.0-11.0) Red Blood Count 4.63 x10^6/uL (4.30-5.70) Hemoglobin 13.2 g/dL (13.0-17.5) Hematocrit 39.6 % (39.0-53.0) Mean Corpuscular Volume 85 fL (79-100) Mean Corpuscular Hemoglobin 29 pg (25-35) Mean Corpuscular Hemoglobin Concent 33 g/dL (31-37) Red Cell Distribution Width 14.6 % (11.5-14.5) Platelet Count 200 x10^3/uL (140-400) Neutrophils (%) (Auto) 71 % (31-73) Lymphocytes (%) (Auto) 18 % (24-48) Monocytes (%) (Auto) 8 % (0-9) Eosinophils (%) (Auto) 2 % (0-3) Basophils (%) (Auto) 1 % (0-3) Neutrophils # (Auto) 6.5 x10^3/uL (1.8-7.7) Lymphocytes # (Auto) 1.6 x10^3/uL (1.0-4.8) Monocytes # (Auto) 0.7 x10^3/uL (0.0-1.1) Eosinophils # (Auto) 0.2 x10^3/uL (0.0-0.7) Basophils # (Auto) 0.1 x10^3/uL (0.0-0.2) Sodium Level 143 mmol/L (136-145) Potassium Level 3.9 mmol/L (3.5-5.1) Chloride Level 107 mmol/L (98-107) Carbon Dioxide Level 29 mmol/L (21-32) Anion Gap 7 (6-14) Blood Urea Nitrogen 22 mg/dL (8-26) Creatinine 1.6 mg/dL (0.7-1.3) Estimated GFR (Cockcroft-Gault) 43.9 Glucose Level 80 mg/dL (70-99) Calcium Level 8.5 mg/dL (8.5-10.1) Triglycerides Level 56 mg/dL (0-150) Cholesterol Level 85 mg/dL (0-200) LDL Cholesterol, Calculated 44 mg/dL (0-100) VLDL Cholesterol, Calculated 11 mg/dL (0-40) Non-HDL Cholesterol Calculated 55 mg/dL (0-129) HDL Cholesterol 30 mg/dL (40-60) Cholesterol/HDL Ratio 2.8 Review of Systems Review of Systems: patient denies chest pain, patient denies N/V/D Assessment and Plan Assessmemt and Plan Acute diastolic heart failure HTN urgency Arrhythmia: appears to be atrial flutter with RVR COPD CKD3: unclear baseline Cr Hx of ANALI; no CPAP use Morbid obesity Remote hx of PAFIB Chronic Venous insufficiency HLP Plan: Cont ICU Monitoring Await cardiology input Cont IV Diuretics and Cardizem drip Serial ECG Cardiac monitoring Out patient ANALI workup Tend BP Tend Labs D/C disposition pending Comment Review of Relevant I have reviewed the following items shaheen (where applicable) has been applied. Medications: Current Medications Medications (Trade) Dose Ordered Sig/Bruno Route PRN Reason Start Time Stop Time Status Last Admin Dose Admin Digoxin (Lanoxin) 500 mcg 1X ONCE IV 12/26/19 13:15 12/26/19 13:16 DC 12/26/19 13:23 Aspirin (Ecotrin) 325 mg 1X ONCE PO 12/26/19 13:30 12/26/19 13:31 DC 12/26/19 13:35 Enoxaparin Sodium (Lovenox 40mg Syringe) 40 mg Q24H SQ 12/26/19 21:00 12/27/19 11:34 DC 12/26/19 22:03 Atorvastatin Calcium (Lipitor) 20 mg HS PO 12/26/19 21:00 12/26/19 22:03 Metoprolol Tartrate (Lopressor) 25 mg Q6HRS PO 12/26/19 18:00 12/27/19 06:02 Bumetanide (Bumex) 1 mg DAILY IV 12/27/19 09:00 12/27/19 08:04 Diltiazem HCl 125 mg/Sodium Chloride 125 ml @ 5 mls/hr CONT PRN IV SEE I/O RECORD 12/27/19 09:45 12/27/19 10:43 Digoxin (Lanoxin) 250 mcg 1X ONCE IV 12/27/19 09:45 12/27/19 09:46 DC 12/27/19 09:58 MARA REYNOLDS III DO Dec 27, 2019 11:53
[2019-12-27] MEDS: HEPARIN 25,000UTS/250ML PREMIX 250 ML IV PRN ×2 (12:20→23:42)
--- NOTE | 2019-12-27 13:37 | CARD ---
MR#: [id number] Date of Study: 12/27/2019 Ordering Physician: SULAIMAN GRAVES, Referring Physician: SULAIMAN GRAVES, Tech: Manuelito Ghotra RDCS APPROVED REPORT EXAM: Two-dimensional and M-mode echocardiogram with Doppler, color Doppler with contrast. Other Information Quality : Technically DifficultHR: 120bpm Rhythm : TachycardiaTechnically limited study due to body habitus. INDICATION Congestive Heart Failure Echo Enhancing Agent Indication: Endocardial border delineation Agent/Amount Used: Optison 4mL RISK FACTORS Hypertension Obesity Hyperlipidemia COPD, afib 2D DIMENSIONS RVDd4.0 (2.9-3.5cm)Left Atrium(2D)3.8 (1.6-4.0cm) IVSd1.2 (0.7-1.1cm)Aortic Root(2D)3.6 (2.0-3.7cm) LVDd5.7 (3.9-5.9cm)LVOT Diameter2.0 (1.8-2.4cm) PWd1.5 (0.7-1.1cm)LVDs4.6 (2.5-4.0cm) FS (%) 18.6 %SV60.5 ml LVEF(%)38.0 (>50%) Aortic Valve AoV Peak Garrick.117.8cm/Malick Peak GR.5.6mmHg LVOT Peak Garrick.85.4cm/sAVA (VMAX)2.20cm2 Pulmonary Valve PV Peak Vkwehorb66.0cm/s Tricuspid Valve RAP [id number] LEFT VENTRICLE The Left Ventricle is moderately dilated. There is mild to moderate concentric left ventricular hyper trophy. The ejection fraction is severely impaired. The Ejection Fraction is 25%. There is global hyp okinesis of the left ventricle. Tissue Doppler imaging reveals severe left ventricular diastolic dysf unction. There is no ventricular septal defect visualized. RIGHT VENTRICLE The right ventricle is mildly dilated. RV Systolic function is moderately reduced. ATRIA The left atrium size is upper limits of normal. The right atrium is moderate to severely dilated. The interatrial septum is intact with no evidence for an atrial septal defect or patent foramen ovale as noted on 2-D or Doppler imaging. AORTIC VALVE The aortic valve is normal in structure and function. Doppler and Color Flow revealed trace aortic re gurgitation. There is no significant aortic valvular stenosis. MITRAL VALVE The mitral valve is normal in structure and function. There is no evidence of mitral valve prolapse. There is no mitral valve stenosis. Doppler and Color Flow revealed no mitral valve regurgitation note d. TRICUSPID VALVE The tricuspid valve is normal in structure and function. Doppler and Color Flow revealed no tricuspid valve regurgitation noted. Unable to assess PA pressure. There is no tricuspid valve stenosis. PULMONIC VALVE The pulmonic valve is not well visualized. Doppler and Color Flow revealed no pulmonic valvular regur gitation. There is no pulmonic valvular stenosis. GREAT VESSELS The aortic root is normal in size. The ascending aorta is normal in size. The IVC is dilated and christelle apses <50% with inspiration. PERICARDIAL EFFUSION There is no pleural effusion. There is no evidence of significant pericardial effusion. Critical Notification Critical Value: No <Conclusion> The ejection fraction is severely impaired. The Ejection Fraction is 25%. There is global hypokinesis of the left ventricle. The IVC is dilated and collapses <50% with inspiration. Signed by : Balta Norris, Electronically Approved : 12/27/2019 10:38:27
[2019-12-27] MEDS: ANTI-COAG MONITOR BY PHARMACY. MC PRN (15:29)
--- NOTE | 2019-12-27 16:09 | NUR ---
SS following for discharge planning. SS reviewed pt chart. Pt is from home and is currently requiring oxygen. SS will continue to follow for discharge planning.
[2019-12-27] MEDS ORDERED: 0.9 % SODIUM CHLORIDE 10 ML DISP.SYRIN. IV PRN (17:00)
--- NOTE | 2019-12-27 20:11 | NUR ---
Pt transfer from ICU 103 to room 206 per wheelchair vs obtained assessment completed pt sitting up in chair poc explained pt denied pain will resume care and continue to monitor pt.
[2019-12-27] MEDS: ATORVASTATIN CALCIUM 20 MG TABLET PO SCH (21:38)
--- NOTE | 2019-12-27 22:03 | NUR ---
Call Placed to re pt bp 192/114 with no orders.
--- NOTE | 2019-12-27 22:10 | NUR ---
Dr. Norris returned call orders received.
[2019-12-27] MEDS: hydrALAZINE 20 MG/ML VIAL. IVP PRN (22:25)
[2019-12-28] VITALS (12 sets, daily range): BP systolic 137–178; BP diastolic 71–106
[2019-12-28] MEDS: dilTIAZem INJ 125 MG in IV NORMAL SALINE 100ML 100 ML IV PRN (02:33)
[2019-12-28] MEDS: METOPROLOL TART IMMED RELEASE 25 MG TABLET. PO SCH ×4 (05:53→23:40)
[2019-12-28] MEDS ORDERED: BENZOCAINE ONE 20% MUCOSAL SPRAY. MM (07:00)
[2019-12-28] MEDS ORDERED: LIDOCAINE 2% VISCOUS 15 ML SOLUTION. SWSW ONE (07:00)
[2019-12-28] MEDS ORDERED: IV RINGERS,LACTATED 1000ML 1,000 ML IV SCH (07:00)
[2019-12-28] MEDS ORDERED: LIDOCAINE 2% TOPICAL JELLY 30GM TUBE. TP ONE (07:00)
[2019-12-28] MEDS: ANTI-COAG MONITOR BY PHARMACY. MC PRN (08:10)
[2019-12-28] MEDS: BUMETANIDE 1 MG/4 ML VIAL. IV SCH (09:18)
[2019-12-28] MEDS: hydrALAZINE 20 MG/ML VIAL. IVP PRN (09:21)
[2019-12-28 09:23] LABS: HEMATOCRIT 39.9 % (39.0-53.0); HEMOGLOBIN 13.5 g/dL (13.0-17.5); RED BLOOD COUNT 4.68 x10^6/uL (4.30-5.70); RED CELL DISTRIBUTION WIDTH 14.9 % (11.5-14.5); WHITE BLOOD COUNT 8.9 x10^3/uL (4.0-11.0)
--- NOTE | 2019-12-28 10:38 | PDOC ---
PROGRESS NOTES Chief Complaint Chief Complaint IMPRESSION Acute diastolic heart failure ON ECHO //ejection fraction is severely impaired. Ejection Fraction is 25%. HTN urgency Arrhythmia: appears to be atrial flutter with RVR COPD CKD3: unclear baseline Cr Hx of ANALI; no CPAP use Morbid obesity Remote hx of PAFIB Chronic Venous insufficiency HYPERLIPIDEMIA Cardiomyopathy: EF at 25% possibly tachy induced CM History of Present Illness History of Present Illness 12/28 Patient was seen and examined in cvc Chart including recent doppler and V/Q study were reviewed Progress was d/w RN Patient on IV diuretic and Cardizem drip Vitals Vitals Vital Signs Date Time Temp Pulse Resp B/P (MAP) Pulse Ox O2 Delivery O2 Flow Rate FiO2 12/28/19 09:21 66 170/81 12/28/19 07:00 97.5 20 94 Room Air 97.5 12/27/19 15:00 2.0 Physical Exam General: Alert, Oriented X3, Cooperative, No acute distress Heart: Regular rate, Normal S1, Other (distant heart sonds unable to appreciate due to body habitus) Lungs: Clear Abdomen: Soft Extremities: No cyanosis, Other (2+ bilateral LE pitting edema) Skin: No breakdown, No significant lesion Labs LABS 2D DIMENSIONS RVDd 4.0 (2.9-3.5cm) Left Atrium(2D) 3.8 (1.6-4.0cm) IVSd 1.2 (0.7-1.1cm) Aortic Root(2D) 3.6 (2.0-3.7cm) LVDd 5.7 (3.9-5.9cm) LVOT Diameter 2.0 (1.8-2.4cm) PWd 1.5 (0.7-1.1cm) LVDs 4.6 (2.5-4.0cm) FS (%) 18.6 % SV 60.5 ml LVEF(%) 38.0 (>50%) Aortic Valve AoV Peak Garrick. 117.8cm/s AO Peak GR. 5.6mmHg LVOT Peak Garrick. 85.4cm/s STEVIE (VMAX) 2.20cm2 Pulmonary Valve PV Peak Velocity 81.0cm/s Tricuspid Valve RAP ESTIMATE 15mmHg LEFT VENTRICLE The Left Ventricle is moderately dilated. There is mild to moderate concentric left ventricular hypertrophy. The ejection fraction is severely impaired. The Ejection Fraction is 25%. There is global hypokinesis of the left ventricle. Tissue Doppler imaging reveals severe left ventricular diastolic dysfunction. There is no ventricular septal defect visualized. RIGHT VENTRICLE The right ventricle is mildly dilated. RV Systolic function is moderately reduced. ATRIA The left atrium size is upper limits of normal. The right atrium is moderate to severely dilated. The interatrial septum is intact with no evidence for an atrial septal defect or patent foramen ovale as noted on 2-D or Doppler imaging. AORTIC VALVE The aortic valve is normal in structure and function. Doppler and Color Flow revealed trace aortic regurgitation. There is no significant aortic valvular stenosis. MITRAL VALVE The mitral valve is normal in structure and function. There is no evidence of mitral valve prolapse. There is no mitral valve stenosis. Doppler and Color Flow revealed no mitral valve regurgitation noted. TRICUSPID VALVE The tricuspid valve is normal in structure and function. Doppler and Color Flow revealed no tricuspid valve regurgitation noted. Unable to assess PA pressure. There is no tricuspid valve stenosis. PULMONIC VALVE The pulmonic valve is not well visualized. Doppler and Color Flow revealed no pulmonic valvular regurgitation. There is no pulmonic valvular stenosis. GREAT VESSELS The aortic root is normal in size. The ascending aorta is normal in size. The IVC is dilated and collapses <50% with inspiration. PERICARDIAL EFFUSION There is no pleural effusion. There is no evidence of significant pericardial effusion. Critical Notification Critical Value: No <Conclusion> The ejection fraction is severely impaired. The Ejection Fraction is 25%. There is global hypokinesis of the left ventricle. The IVC is dilated and collapses <50% with inspiration. Signed by : Cinthya Norris, Electronically Approved : 12/27/2019 10:38:27 DICTATED and SIGNED BY: CINTHYA NORRIS MD DATE: 12/27/19 1006 NUCLEAR MEDICINE VENTILATION PERFUSION SCAN History: Shortness of air x3 days. Comparison: CT chest without contrast, earlier same day. Technique: Patient initially ventilated with 9.8 mCi of xenon-133 gas. Anterior and posterior imaging of the lungs during initial breath-hold, equilibrium and, washout phase images is performed. Perfusion portion performed after intravenous administration of 5.5 mCi Technetium 99m MAA. Multiple projection planar images of the lungs were obtained. Findings: The initial breath-hold ventilation images are homogeneous. There is no retention of tracer on the washout phase images. Perfusion images demonstrate no mismatched segmental perfusion defects. IMPRESSION: Normal VQ scan. Negative for pulmonary embolism. Electronically signed by: Steve Bautista MD (12/26/2019 2:27 PM) [id number] DICTATED and SIGNED BY: STEVE BAUITSTA MD DATE: 12/26/19 1427 Laboratory Tests Test 12/27/19 20:00 12/28/19 01:50 12/28/19 08:45 Heparin Anti-Xa Act, Unfractionated 0.46 IU/mL (0.30-0.70) 0.57 IU/mL (0.30-0.70) 0.50 IU/mL (0.30-0.70) White Blood Count 8.9 x10^3/uL (4.0-11.0) Red Blood Count 4.68 x10^6/uL (4.30-5.70) Hemoglobin 13.5 g/dL (13.0-17.5) Hematocrit 39.9 % (39.0-53.0) Mean Corpuscular Volume 85 fL (79-100) Mean Corpuscular Hemoglobin 29 pg (25-35) Mean Corpuscular Hemoglobin Concent 34 g/dL (31-37) Red Cell Distribution Width 14.9 % (11.5-14.5) Platelet Count 215 x10^3/uL (140-400) Assessment and Plan Assessmemt and Plan Problems Medical Problems: (1) Atrial flutter Status: Acute (2) Cardiogenic pulmonary edema Status: Acute Comment Review of Relevant I have reviewed the following items shaheen (where applicable) has been applied. Labs Laboratory Tests Test 12/26/19 10:47 12/26/19 13:37 12/27/19 04:10 12/27/19 20:00 White Blood Count 11.8 x10^3/uL (4.0-11.0) 9.1 x10^3/uL (4.0-11.0) Red Blood Count 4.88 x10^6/uL (4.30-5.70) 4.63 x10^6/uL (4.30-5.70) Hemoglobin 14.1 g/dL (13.0-17.5) 13.2 g/dL (13.0-17.5) Hematocrit 41.8 % (39.0-53.0) 39.6 % (39.0-53.0) Mean Corpuscular Volume 86 fL (79-100) 85 fL (79-100) Mean Corpuscular Hemoglobin 29 pg (25-35) 29 pg (25-35) Mean Corpuscular Hemoglobin Concent 34 g/dL (31-37) 33 g/dL (31-37) Red Cell Distribution Width 14.6 % (11.5-14.5) 14.6 % (11.5-14.5) Platelet Count 239 x10^3/uL (140-400) 200 x10^3/uL (140-400) Neutrophils (%) (Auto) 75 % (31-73) 71 % (31-73) Lymphocytes (%) (Auto) 14 % (24-48) 18 % (24-48) Monocytes (%) (Auto) 8 % (0-9) 8 % (0-9) Eosinophils (%) (Auto) 2 % (0-3) 2 % (0-3) Basophils (%) (Auto) 1 % (0-3) 1 % (0-3) Neutrophils # (Auto) 8.9 x10^3/uL (1.8-7.7) 6.5 x10^3/uL (1.8-7.7) Lymphocytes # (Auto) 1.7 x10^3/uL (1.0-4.8) 1.6 x10^3/uL (1.0-4.8) Monocytes # (Auto) 0.9 x10^3/uL (0.0-1.1) 0.7 x10^3/uL (0.0-1.1) Eosinophils # (Auto) 0.2 x10^3/uL (0.0-0.7) 0.2 x10^3/uL (0.0-0.7) Basophils # (Auto) 0.1 x10^3/uL (0.0-0.2) 0.1 x10^3/uL (0.0-0.2) Prothrombin Time 14.2 SEC (11.7-14.0) Prothromb Time International Ratio 1.1 (0.8-1.1) Activated Partial Thromboplast Time 28 SEC (24-38) D-Dimer (Yokasta) 0.96 ug/mlFEU (0.00-0.50) Sodium Level 141 mmol/L (136-145) 143 mmol/L (136-145) Potassium Level 4.3 mmol/L (3.5-5.1) 3.9 mmol/L (3.5-5.1) Chloride Level 103 mmol/L (98-107) 107 mmol/L (98-107) Carbon Dioxide Level 26 mmol/L (21-32) 29 mmol/L (21-32) Anion Gap 12 (6-14) 7 (6-14) Blood Urea Nitrogen 23 mg/dL (8-26) 22 mg/dL (8-26) Creatinine 1.7 mg/dL (0.7-1.3) 1.6 mg/dL (0.7-1.3) Estimated GFR (Cockcroft-Gault) 40.9 43.9 Glucose Level 111 mg/dL (70-99) 80 mg/dL (70-99) Lactic Acid Level 1.8 mmol/L (0.4-2.0) Calcium Level 9.1 mg/dL (8.5-10.1) 8.5 mg/dL (8.5-10.1) Magnesium Level 1.9 mg/dL (1.8-2.4) Total Bilirubin 0.9 mg/dL (0.2-1.0) Direct Bilirubin 0.3 mg/dL (0.0-0.2) Aspartate Amino Transf (AST/SGOT) 18 U/L (15-37) Alanine Aminotransferase (ALT/SGPT) 27 U/L (16-63) Alkaline Phosphatase 60 U/L (46-116) Troponin I Quantitative < 0.017 ng/mL (0.000-0.055) XX-Fkk-W-Type Natriuretic Peptide 3867 pg/mL (0-124) Total Protein 6.8 g/dL (6.4-8.2) Albumin 3.2 g/dL (3.4-5.0) Lipase 103 U/L (73-393) Thyroid Stimulating Hormone (TSH) 4.159 uIU/mL (0.358-3.74) Urine Collection Type Unknown Urine Color Yellow Urine Clarity Clear Urine pH 6.5 Urine Specific [place] 1.010 Urine Protein Negative mg/dL (NEG-TRACE) Urine Glucose (UA) Negative mg/dL (NEG) Urine Ketones (Stick) Negative mg/dL (NEG) Urine Blood Negative (NEG) Urine Nitrite Negative (NEG) Urine Bilirubin Negative (NEG) Urine Urobilinogen Dipstick 0.2 mg/dL (0.2 mg/dL) Urine Leukocyte Esterase Negative (NEG) Urine RBC 0 /HPF (0-2) Urine WBC 0 /HPF (0-4) Urine Squamous Epithelial Cells Occ /LPF Urine Bacteria 0 /HPF (0-FEW) Urine Mucus Slight /LPF Triglycerides Level 56 mg/dL (0-150) Cholesterol Level 85 mg/dL (0-200) LDL Cholesterol, Calculated 44 mg/dL (0-100) VLDL Cholesterol, Calculated 11 mg/dL (0-40) Non-HDL Cholesterol Calculated 55 mg/dL (0-129) HDL Cholesterol 30 mg/dL (40-60) Cholesterol/HDL Ratio 2.8 Heparin Anti-Xa Act, Unfractionated 0.46 IU/mL (0.30-0.70) Test 12/28/19 01:50 12/28/19 08:45 Heparin Anti-Xa Act, Unfractionated 0.57 IU/mL (0.30-0.70) 0.50 IU/mL (0.30-0.70) White Blood Count 8.9 x10^3/uL (4.0-11.0) Red Blood Count 4.68 x10^6/uL (4.30-5.70) Hemoglobin 13.5 g/dL (13.0-17.5) Hematocrit 39.9 % (39.0-53.0) Mean Corpuscular Volume 85 fL (79-100) Mean Corpuscular Hemoglobin 29 pg (25-35) Mean Corpuscular Hemoglobin Concent 34 g/dL (31-37) Red Cell Distribution Width 14.9 % (11.5-14.5) Platelet Count 215 x10^3/uL (140-400) Laboratory Tests Test 12/27/19 20:00 12/28/19 01:50 12/28/19 08:45 Heparin Anti-Xa Act, Unfractionated 0.46 IU/mL (0.30-0.70) 0.57 IU/mL (0.30-0.70) 0.50 IU/mL (0.30-0.70) White Blood Count 8.9 x10^3/uL (4.0-11.0) Red Blood Count 4.68 x10^6/uL (4.30-5.70) Hemoglobin 13.5 g/dL (13.0-17.5) Hematocrit 39.9 % (39.0-53.0) Mean Corpuscular Volume 85 fL (79-100) Mean Corpuscular Hemoglobin 29 pg (25-35) Mean Corpuscular Hemoglobin Concent 34 g/dL (31-37) Red Cell Distribution Width 14.9 % (11.5-14.5) Platelet Count 215 x10^3/uL (140-400) Medications Current Medications Furosemide (Lasix) 40 mg 1X ONCE IVP Last administered on 12/26/19at 11:36; Start 12/26/19 at 11:00; Stop 12/26/19 at 11:03; Status DC Albuterol/ Ipratropium (Duoneb) 3 ml 1X ONCE NEB Last administered on 12/26/19at 11:16; Start 12/26/19 at 11:00; Stop 12/26/19 at 11:03; Status DC Metoprolol Tartrate (Lopressor Vial) 5 mg 1X ONCE IVP ; Start 12/26/19 at 11:15; Stop 12/26/19 at 11:07; Status DC Metoprolol Tartrate (Lopressor Vial) 5 mg 1X ONCE IVP Last administered on 12/26/19at 11:41; Start 12/26/19 at 11:45; Stop 12/26/19 at 11:46; Status DC Azithromycin 250 ml @ 250 mls/hr 1X ONCE IV Last administered on 12/26/19at 12:16; Start 12/26/19 at 11:45; Stop 12/26/19 at 12:44; Status DC Ceftriaxone Sodium (Rocephin) 1 gm 1X ONCE IVP Last administered on 12/26/19at 12:16; Start 12/26/19 at 11:45; Stop 12/26/19 at 11:46; Status DC Digoxin (Lanoxin) 500 mcg 1X ONCE IV Last administered on 12/26/19at 13:23; Start 12/26/19 at 13:15; Stop 12/26/19 at 13:16; Status DC Aspirin (Ecotrin) 325 mg 1X ONCE PO Last administered on 12/26/19at 13:35; Start 12/26/19 at 13:30; Stop 12/26/19 at 13:31; Status DC Ondansetron HCl (Zofran) 4 mg PRN Q4HRS PRN IV NAUSEA/VOMITING; Start 12/26/19 at 15:15 Acetaminophen (Tylenol) 650 mg PRN Q4HRS PRN PO TEMP OVER 100.4F OR MILD PAIN; Start 12/26/19 at 15:15 Docusate Sodium (Colace) 100 mg PRN BID PRN PO CONSTIPATION; Start 12/26/19 at 15:15 Albuterol Sulfate (Ventolin Neb Soln) 2.5 mg PRN Q4HRS PRN NEB SHORTNESS OF BREATH; Start 12/26/19 at 15:15 Guaifenesin (Robitussin) 200 mg PRN Q4HRS PRN PO COUGH; Start 12/26/19 at 15:15 Enoxaparin Sodium (Lovenox 40mg Syringe) 40 mg Q24H SQ Last administered on 12/26/19at 22:03; Start 12/26/19 at 21:00; Stop 12/27/19 at 11:34; Status DC Atorvastatin Calcium (Lipitor) 20 mg HS PO Last administered on 12/27/19at 21:38; Start 12/26/19 at 21:00 Amlodipine Besylate (Norvasc) 5 mg DAILY PO ; Start 12/26/19 at 17:00; Stop 12/26/19 at 17:12; Status DC Carvedilol (Coreg) 25 mg BIDWMEALS PO ; Start 12/26/19 at 17:00; Stop 12/26/19 at 17:12; Status DC Losartan Potassium (Cozaar) 50 mg DAILY PO ; Start 12/26/19 at 17:00; Stop 12/26/19 at 17:12; Status DC Bumetanide (Bumex) 1 mg BID92 IV ; Start 12/26/19 at 15:15; Stop 12/26/19 at 17:14; Status DC Metoprolol Tartrate (Lopressor) 25 mg Q6HRS PO Last administered on 12/28/19at 05:53; Start 12/26/19 at 18:00 Bumetanide (Bumex) 1 mg DAILY IV Last administered on 12/28/19at 09:18; Start 12/27/19 at 09:00 Perflutren Protein Type A Microsphe (Optison) 0.66 mg STK-MED ONCE IV ; Start 12/27/19 at 08:02; Stop 12/27/19 at 08:02; Status DC Diltiazem HCl 125 mg/Sodium Chloride 125 ml @ 5 mls/hr CONT PRN IV SEE I/O RECORD Last administered on 12/28/19at 02:33; Start 12/27/19 at 09:45 Digoxin (Lanoxin) 250 mcg 1X ONCE IV Last administered on 12/27/19at 09:58; Start 12/27/19 at 09:45; Stop 12/27/19 at 09:46; Status DC Heparin Sodium/ Dextrose 250 ml @ 20 mls/hr CONT PRN IV PER PROTOCOL Last administered on 12/27/19at 23:42; Start 12/27/19 at 11:30 Heparin Sodium (Porcine) (Heparin Sodium) 4,300 unit PRN Q6HRS PRN IV FOR UFH LEVEL LESS THAN 0.2; Start 12/27/19 at 11:30 Info (Anti-Coagulation Monitoring By Pharmacy) 1 each PRN DAILY PRN MC SEE COMMENTS Last administered on 12/28/19at 08:10; Start 12/27/19 at 15:30 Ringer's Solution 1,000 ml @ 50 mls/hr Q20H IV ; Start 12/28/19 at 07:00; Stop 12/28/19 at 18:59 Sodium Chloride (Normal Saline Flush) 10 ml QSHIFT PRN IV AFTER MEDS AND BLOOD DRAWS; Start 12/27/19 at 17:00 Hydralazine HCl (Apresoline Inj) 10 mg PRN Q4HRS PRN IVP ELEVATED BP, SEE COMMENTS Last administered on 12/28/19at 09:21; Start 12/27/19 at 22:15 Lidocaine HCl (Viscous Lidocaine) 15 ml 1X ONCE SWSW ; Start 12/28/19 at 07:00; Stop 12/28/19 at 07:07; Status DC Lidocaine HCl (Xylocaine 2% Topical 30gm Tube) 1 adan 1X ONCE TP ; Start 12/28/19 at 07:00; Stop 12/28/19 at 07:07; Status DC Benzocaine (Hurricaine One) 2 spray 1X ONCE MM ; Start 12/28/19 at 07:00; Stop 12/28/19 at 07:07; Status DC Diltiazem HCl (Cardizem 24hr Cd) 180 mg DAILY PO Last administered on 12/28/19at 09:17; Start 12/28/19 at 09:00 Active Scripts Active Reported Amlodipine-Valsartan 10-160 mg (Amlodipine/Valsartan) 1 Each Tablet 0.5 Tab PO DAILY 30 Days Atorvastatin Calcium 20 Mg Tablet 20 Mg PO HS Carvedilol 25 Mg Tablet 25 Mg PO BIDWMEALS Vitals/I & O Vital Sign - Last 24 Hours 12/27/19 12/27/19 12/27/19 12/27/19 11:00 12:00 12:16 13:00 Temp 97.8 97.8 Pulse 78 88 97 142 Resp 17 19 45 B/P (MAP) 169/89 (115) 157/104 (121) 127/74 (91) Pulse Ox 92 96 94 O2 Delivery Nasal Cannula Nasal Cannula Nasal Cannula O2 Flow Rate 2.0 2.0 2.0 12/27/19 12/27/19 12/27/19 12/27/19 14:00 15:00 17:41 19:50 Temp 97.2 97.2 Pulse 84 96 84 Resp 17 30 B/P (MAP) 131/77 (95) 143/83 (103) 183/101 Pulse Ox 99 99 O2 Delivery Nasal Cannula Nasal Cannula Room Air O2 Flow Rate 2.0 2.0 12/27/19 12/27/19 12/27/19 12/27/19 19:50 20:57 21:42 22:06 Temp 98.2 98.2 Pulse 108 69 77 74 Resp 18 B/P (MAP) 177/104 (128) 180/100 (126) 192/114 (140) 181/101 (127) Pulse Ox 98 O2 Delivery Room Air 12/27/19 12/27/19 12/27/19 12/27/19 22:25 22:26 23:37 23:57 Temp 97.7 97.7 Pulse 75 84 85 88 Resp 18 B/P (MAP) 181/101 159/91 (113) 159/91 148/74 (98) Pulse Ox 97 O2 Delivery Room Air 212/28/19 12/28/19 12/28/19 00:57 01:07 02:01 02:57 Temp 97.7 97.7 Pulse 80 66 77 74 Resp 18 B/P (MAP) 170/86 (114) 161/84 (109) 165/95 (118) 137/71 (93) Pulse Ox 96 O2 Delivery Room Air 12/28/19 12/28/19 12/28/19 12/28/19 03:57 04:47 05:53 05:57 Pulse 68 78 90 73 B/P (MAP) 178/93 (121) 161/98 (119) 161/98 162/80 (107) 12/28/19 12/28/19 12/28/19 07:00 09:17 09:21 Temp 97.5 97.5 Pulse 66 70 66 Resp 20 B/P (MAP) 166/83 (110) 159/87 170/81 Pulse Ox 94 O2 Delivery Room Air Intake and Output 12/27/19 12/27/19 12/28/19 15:00 23:00 07:00 Intake Total 135.9 ml 200 ml Output Total 2100 ml 800 ml 1500 ml Balance -2100 ml -664.1 ml -1300 ml ELIZABETH SCHAFFER MD Dec 28, 2019 10:38
[2019-12-28] MEDS ORDERED: APIXABAN 5 MG TABLET. PO ONE ×2 (15:15→23:00)
--- NOTE | 2019-12-28 17:37 | PDOC ---
PROGRESS NOTES Subjective Subjective Patient seen and examined Objective Objective Vital Signs Date Time Temp Pulse Resp B/P (MAP) Pulse Ox O2 Delivery O2 Flow Rate FiO2 12/28/19 15:00 97.4 96 20 152/91 (111) 96 Room Air 97.4 12/27/19 15:00 2.0 Intake and Output 12/28/19 07:00 Intake Total 335.9 ml Output Total 4400 ml Balance -4064.1 ml Intake Oral 200 ml IV Total 135.9 ml Output Urine Total 4400 ml # Bowel Movements 1 Assessment Assessment Problems Medical Problems: (1) Atrial flutter Status: Acute (2) Cardiogenic pulmonary edema Status: Acute 1. Acute systolic/diastolic CHF: likely precipitated by #2-3 and ANALI. Continues to improve. 2. HTN urgency: improved 3. Atrial flutter with RVR. Rate much better controlled. Does not require BRAD/CV at this time with better control.. Will taper off IV meds. 4. COPD 5. CKD3: Cr stable 6. Hx of ANALI; no CPAP use 7. Morbid obesity 8. Remote hx of PAFIB 9. Chronic Venous insufficiency 10. HLP 11. Cardiomyopathy: EF at 25% possibly tachy induced CM Comment Review of Relevant I have reviewed the following items shaheen (where applicable) has been applied. Labs Laboratory Tests Test 12/27/19 04:10 12/27/19 20:00 12/28/19 01:50 12/28/19 08:45 White Blood Count 9.1 x10^3/uL (4.0-11.0) 8.9 x10^3/uL (4.0-11.0) Red Blood Count 4.63 x10^6/uL (4.30-5.70) 4.68 x10^6/uL (4.30-5.70) Hemoglobin 13.2 g/dL (13.0-17.5) 13.5 g/dL (13.0-17.5) Hematocrit 39.6 % (39.0-53.0) 39.9 % (39.0-53.0) Mean Corpuscular Volume 85 fL (79-100) 85 fL (79-100) Mean Corpuscular Hemoglobin 29 pg (25-35) 29 pg (25-35) Mean Corpuscular Hemoglobin Concent 33 g/dL (31-37) 34 g/dL (31-37) Red Cell Distribution Width 14.6 % (11.5-14.5) 14.9 % (11.5-14.5) Platelet Count 200 x10^3/uL (140-400) 215 x10^3/uL (140-400) Neutrophils (%) (Auto) 71 % (31-73) Lymphocytes (%) (Auto) 18 % (24-48) Monocytes (%) (Auto) 8 % (0-9) Eosinophils (%) (Auto) 2 % (0-3) Basophils (%) (Auto) 1 % (0-3) Neutrophils # (Auto) 6.5 x10^3/uL (1.8-7.7) Lymphocytes # (Auto) 1.6 x10^3/uL (1.0-4.8) Monocytes # (Auto) 0.7 x10^3/uL (0.0-1.1) Eosinophils # (Auto) 0.2 x10^3/uL (0.0-0.7) Basophils # (Auto) 0.1 x10^3/uL (0.0-0.2) Sodium Level 143 mmol/L (136-145) Potassium Level 3.9 mmol/L (3.5-5.1) Chloride Level 107 mmol/L (98-107) Carbon Dioxide Level 29 mmol/L (21-32) Anion Gap 7 (6-14) Blood Urea Nitrogen 22 mg/dL (8-26) Creatinine 1.6 mg/dL (0.7-1.3) Estimated GFR (Cockcroft-Gault) 43.9 Glucose Level 80 mg/dL (70-99) Calcium Level 8.5 mg/dL (8.5-10.1) Triglycerides Level 56 mg/dL (0-150) Cholesterol Level 85 mg/dL (0-200) LDL Cholesterol, Calculated 44 mg/dL (0-100) VLDL Cholesterol, Calculated 11 mg/dL (0-40) Non-HDL Cholesterol Calculated 55 mg/dL (0-129) HDL Cholesterol 30 mg/dL (40-60) Cholesterol/HDL Ratio 2.8 Heparin Anti-Xa Act, Unfractionated 0.46 IU/mL (0.30-0.70) 0.57 IU/mL (0.30-0.70) 0.50 IU/mL (0.30-0.70) Laboratory Tests Test 12/27/19 20:00 12/28/19 01:50 12/28/19 08:45 Heparin Anti-Xa Act, Unfractionated 0.46 IU/mL (0.30-0.70) 0.57 IU/mL (0.30-0.70) 0.50 IU/mL (0.30-0.70) White Blood Count 8.9 x10^3/uL (4.0-11.0) Red Blood Count 4.68 x10^6/uL (4.30-5.70) Hemoglobin 13.5 g/dL (13.0-17.5) Hematocrit 39.9 % (39.0-53.0) Mean Corpuscular Volume 85 fL (79-100) Mean Corpuscular Hemoglobin 29 pg (25-35) Mean Corpuscular Hemoglobin Concent 34 g/dL (31-37) Red Cell Distribution Width 14.9 % (11.5-14.5) Platelet Count 215 x10^3/uL (140-400) Medications Current Medications Furosemide (Lasix) 40 mg 1X ONCE IVP Last administered on 12/26/19at 11:36; Start 12/26/19 at 11:00; Stop 12/26/19 at 11:03; Status DC Albuterol/ Ipratropium (Duoneb) 3 ml 1X ONCE NEB Last administered on 12/26/19at 11:16; Start 12/26/19 at 11:00; Stop 12/26/19 at 11:03; Status DC Metoprolol Tartrate (Lopressor Vial) 5 mg 1X ONCE IVP ; Start 12/26/19 at 11:15; Stop 12/26/19 at 11:07; Status DC Metoprolol Tartrate (Lopressor Vial) 5 mg 1X ONCE IVP Last administered on 12/26/19at 11:41; Start 12/26/19 at 11:45; Stop 12/26/19 at 11:46; Status DC Azithromycin 250 ml @ 250 mls/hr 1X ONCE IV Last administered on 12/26/19at 12:16; Start 12/26/19 at 11:45; Stop 12/26/19 at 12:44; Status DC Ceftriaxone Sodium (Rocephin) 1 gm 1X ONCE IVP Last administered on 12/26/19at 12:16; Start 12/26/19 at 11:45; Stop 12/26/19 at 11:46; Status DC Digoxin (Lanoxin) 500 mcg 1X ONCE IV Last administered on 12/26/19at 13:23; Start 12/26/19 at 13:15; Stop 12/26/19 at 13:16; Status DC Aspirin (Ecotrin) 325 mg 1X ONCE PO Last administered on 12/26/19at 13:35; Start 12/26/19 at 13:30; Stop 12/26/19 at 13:31; Status DC Ondansetron HCl (Zofran) 4 mg PRN Q4HRS PRN IV NAUSEA/VOMITING; Start 12/26/19 at 15:15 Acetaminophen (Tylenol) 650 mg PRN Q4HRS PRN PO TEMP OVER 100.4F OR MILD PAIN; Start 12/26/19 at 15:15 Docusate Sodium (Colace) 100 mg PRN BID PRN PO CONSTIPATION; Start 12/26/19 at 15:15 Albuterol Sulfate (Ventolin Neb Soln) 2.5 mg PRN Q4HRS PRN NEB SHORTNESS OF BREATH; Start 12/26/19 at 15:15 Guaifenesin (Robitussin) 200 mg PRN Q4HRS PRN PO COUGH; Start 12/26/19 at 15:15 Enoxaparin Sodium (Lovenox 40mg Syringe) 40 mg Q24H SQ Last administered on 12/26/19at 22:03; Start 12/26/19 at 21:00; Stop 12/27/19 at 11:34; Status DC Atorvastatin Calcium (Lipitor) 20 mg HS PO Last administered on 12/27/19at 21:38; Start 12/26/19 at 21:00 Amlodipine Besylate (Norvasc) 5 mg DAILY PO ; Start 12/26/19 at 17:00; Stop 12/26/19 at 17:12; Status DC Carvedilol (Coreg) 25 mg BIDWMEALS PO ; Start 12/26/19 at 17:00; Stop 12/26/19 at 17:12; Status DC Losartan Potassium (Cozaar) 50 mg DAILY PO ; Start 12/26/19 at 17:00; Stop 12/26/19 at 17:12; Status DC Bumetanide (Bumex) 1 mg BID92 IV ; Start 12/26/19 at 15:15; Stop 12/26/19 at 17:14; Status DC Metoprolol Tartrate (Lopressor) 25 mg Q6HRS PO Last administered on 12/28/19at 12:00; Start 12/26/19 at 18:00 Bumetanide (Bumex) 1 mg DAILY IV Last administered on 12/28/19at 09:18; Start 12/27/19 at 09:00 Perflutren Protein Type A Microsphe (Optison) 0.66 mg STK-MED ONCE IV ; Start 12/27/19 at 08:02; Stop 12/27/19 at 08:02; Status DC Diltiazem HCl 125 mg/Sodium Chloride 125 ml @ 5 mls/hr CONT PRN IV SEE I/O RECORD Last administered on 12/28/19at 02:33; Start 12/27/19 at 09:45 Digoxin (Lanoxin) 250 mcg 1X ONCE IV Last administered on 12/27/19at 09:58; Start 12/27/19 at 09:45; Stop 12/27/19 at 09:46; Status DC Heparin Sodium/ Dextrose 250 ml @ 20 mls/hr CONT PRN IV PER PROTOCOL Last administered on 12/27/19at 23:42; Start 12/27/19 at 11:30 Heparin Sodium (Porcine) (Heparin Sodium) 4,300 unit PRN Q6HRS PRN IV FOR UFH LEVEL LESS THAN 0.2; Start 12/27/19 at 11:30 Info (Anti-Coagulation Monitoring By Pharmacy) 1 each PRN DAILY PRN MC SEE COMMENTS Last administered on 12/28/19at 08:10; Start 12/27/19 at 15:30 Ringer's Solution 1,000 ml @ 50 mls/hr Q20H IV ; Start 12/28/19 at 07:00; Stop 12/28/19 at 18:59 Sodium Chloride (Normal Saline Flush) 10 ml QSHIFT PRN IV AFTER MEDS AND BLOOD DRAWS; Start 12/27/19 at 17:00 Hydralazine HCl (Apresoline Inj) 10 mg PRN Q4HRS PRN IVP ELEVATED BP, SEE COMMENTS Last administered on 12/28/19at 09:21; Start 12/27/19 at 22:15 Lidocaine HCl (Viscous Lidocaine) 15 ml 1X ONCE SWSW ; Start 12/28/19 at 07:00; Stop 12/28/19 at 07:07; Status DC Lidocaine HCl (Xylocaine 2% Topical 30gm Tube) 1 adan 1X ONCE TP ; Start 12/28/19 at 07:00; Stop 12/28/19 at 07:07; Status DC Benzocaine (Hurricaine One) 2 spray 1X ONCE MM ; Start 12/28/19 at 07:00; Stop 12/28/19 at 07:07; Status DC Diltiazem HCl (Cardizem 24hr Cd) 180 mg DAILY PO Last administered on 12/28/19at 09:17; Start 12/28/19 at 09:00 Apixaban (Eliquis) 5 mg BID PO ; Start 12/29/19 at 09:00 Apixaban (Eliquis) 5 mg 1X ONCE PO Last administered on 12/28/19at 15:15; Start 12/28/19 at 15:15; Stop 12/28/19 at 15:16; Status DC Apixaban (Eliquis) 5 mg 1X ONCE PO ; Start 12/28/19 at 23:00; Stop 12/28/19 at 23:01 Diltiazem HCl (Cardizem 24hr Cd) 120 mg 1X ONCE PO ; Start 12/28/19 at 17:15; Stop 12/28/19 at 17:16; Status DC Diltiazem HCl (Cardizem 24hr Cd) 240 mg DAILY PO ; Start 12/29/19 at 09:00 Diltiazem HCl (Cardizem 24hr Cd) 120 mg 1X ONCE PO ; Start 12/28/19 at 17:30; Stop 12/28/19 at 17:31; Status DC Active Scripts Active Reported Amlodipine-Valsartan 10-160 mg (Amlodipine/Valsartan) 1 Each Tablet 0.5 Tab PO DAILY 30 Days Atorvastatin Calcium 20 Mg Tablet 20 Mg PO HS Carvedilol 25 Mg Tablet 25 Mg PO BIDWMEALS Vitals/I & O Vital Sign - Last 24 Hours 12/27/19 12/27/19 12/27/19 12/27/19 17:41 19:50 19:50 20:57 Temp 98.2 98.2 Pulse 84 108 69 Resp 18 B/P (MAP) 183/101 177/104 (128) 180/100 (126) Pulse Ox 98 O2 Delivery Room Air Room Air 12/27/19 12/27/19 12/27/19 12/27/19 21:42 22:06 22:25 22:26 Temp 97.7 97.7 Pulse 77 74 75 84 Resp 18 B/P (MAP) 192/114 (140) 181/101 (127) 181/101 159/91 (113) Pulse Ox 97 O2 Delivery Room Air 12/27/19 12/27/19 12/28/19 12/28/19 23:37 23:57 00:57 01:07 Pulse 85 88 80 66 B/P (MAP) 159/91 148/74 (98) 170/86 (114) 161/84 (109) 12/28/19 12/28/19 12/28/19 12/28/19 02:01 02:57 03:57 04:47 Temp 97.7 97.7 Pulse 77 74 68 78 Resp 18 B/P (MAP) 165/95 (118) 137/71 (93) 178/93 (121) 161/98 (119) Pulse Ox 96 O2 Delivery Room Air 12/28/19 12/28/19 12/28/19 12/28/19 05:53 05:57 07:00 08:00 Temp 97.5 97.5 Pulse 90 73 66 Resp 20 B/P (MAP) 161/98 162/80 (107) 166/83 (110) Pulse Ox 94 O2 Delivery Room Air Room Air 12/28/19 12/28/19 12/28/19 12/28/19 09:17 09:21 11:00 12:00 Temp 97.8 97.8 Pulse 70 66 71 96 Resp 22 B/P (MAP) 159/87 170/81 168/106 (126) 152/91 Pulse Ox 97 O2 Delivery Room Air 12/28/19 15:00 Temp 97.4 97.4 Pulse 96 Resp 20 B/P (MAP) 152/91 (111) Pulse Ox 96 O2 Delivery Room Air Intake and Output 12/27/19 12/27/19 12/28/19 15:00 23:00 07:00 Intake Total 135.9 ml 200 ml Output Total 2100 ml 800 ml 1500 ml Balance -2100 ml -664.1 ml -1300 ml GRICELDA FLOWERS MD Dec 28, 2019 17:37
[2019-12-28] MEDS: ATORVASTATIN CALCIUM 20 MG TABLET PO SCH (21:18)
[2019-12-29] VITALS (8 sets, daily range): BP systolic 150–248; BP diastolic 84–117
[2019-12-29] MEDS: METOPROLOL TART IMMED RELEASE 25 MG TABLET. PO SCH ×3 (06:08→20:12)
[2019-12-29] MEDS: BUMETANIDE 1 MG/4 ML VIAL. IV SCH (08:27)
[2019-12-29] MEDS: APIXABAN 5 MG TABLET. PO SCH ×2 (08:27→20:12)
--- NOTE | 2019-12-29 10:56 | PDOC ---
PROGRESS NOTES Chief Complaint Chief Complaint IMPRESSION Acute diastolic heart failure ON ECHO //ejection fraction is severely impaired. Ejection Fraction is 25%. HTN urgency Arrhythmia: appears to be atrial flutter with RVR COPD CKD3: unclear baseline Cr Hx of ANALI; no CPAP use Morbid obesity Remote hx of PAFIB Chronic Venous insufficiency HYPERLIPIDEMIA Cardiomyopathy: EF at 25% possibly tachy induced CM History of Present Illness History of Present Illness 12/29 Patient was seen and examined in cvc Chart including recent doppler and V/Q study were reviewed Progress was d/w RN Patient on IV diuretic Vitals Vitals Vital Signs Date Time Temp Pulse Resp B/P (MAP) Pulse Ox O2 Delivery O2 Flow Rate FiO2 12/29/19 08:43 95 Room Air 12/29/19 08:27 75 166/98 12/29/19 07:00 97.6 18 97.6 Physical Exam General: Alert, Oriented X3, Cooperative, No acute distress Heart: Normal S1, Other (distant heart sonds unable to appreciate due to body habitus) Lungs: Clear Abdomen: Soft Extremities: No cyanosis, Other (2+ bilateral LE pitting edema) Skin: No breakdown, No significant lesion Labs LABS EXAM: CT Chest without IV contrast CLINICAL HISTORY: Pneumonia, shortness of air COMPARISON: None. TECHNIQUE: CT of the chest without intravenous contrast. Axial, coronal and sagittal reformatted images were generated. ---PQRS compliance statement - One or more of the following individualized dose reduction techniques were utilized for this study: 1. Automated exposure control 2. Adjustment of the mA and/or kV according to patient size 3. Use of iterative reconstruction technique--- FINDINGS: Lack of intravenous contrast limits evaluation of solid organs, vasculature, and lymph nodes. Chest: Heart is mildly enlarged. Coronary artery calcifications are seen. Aortic root calcifications are noted. Small bilateral pleural effusions. Dependent opacities bilaterally likely atelectasis. In addition there are regions of groundglass and solid airspace opacities in the lower lobes suspicious for developing atypical infectious or inflammatory process. Linear opacities lower lobes, middle lobe and lingula likely scarring/atelectasis. There is also mild interstitial prominence particularly in the lung bases. Evaluation of mediastinal and hilar lymphadenopathy is limited on this noncontrast examination. Within these constraints there are suspected mildly prominent hilar lymph nodes, may be reactive. Bilateral gynecomastia. No axillary lymphadenopathy. Visualized Upper abdomen: Upper abdomen is grossly unremarkable. Bones: Degenerative changes of spine are seen. IMPRESSION: 1. Bilateral lower lobe predominant airspace opacities with bilateral pleural effusions, favored to represent infectious or inflammatory process. 2. However as mild interstitial prominence is seen predominantly in the lower lungs, pulmonary edema is also a consideration. 3. Bilateral gynecomastia. 4. Mild cardiac megaly. Electronically signed by: Con Hwang MD (12/26/2019 1:18 PM) [facility] Assessment and Plan Assessmemt and Plan Problems Medical Problems: (1) Atrial flutter Status: Acute (2) Cardiogenic pulmonary edema Status: Acute Comment Review of Relevant I have reviewed the following items shaheen (where applicable) has been applied. Labs Laboratory Tests Test 12/27/19 20:00 12/28/19 01:50 12/28/19 08:45 Heparin Anti-Xa Act, Unfractionated 0.46 IU/mL (0.30-0.70) 0.57 IU/mL (0.30-0.70) 0.50 IU/mL (0.30-0.70) White Blood Count 8.9 x10^3/uL (4.0-11.0) Red Blood Count 4.68 x10^6/uL (4.30-5.70) Hemoglobin 13.5 g/dL (13.0-17.5) Hematocrit 39.9 % (39.0-53.0) Mean Corpuscular Volume 85 fL (79-100) Mean Corpuscular Hemoglobin 29 pg (25-35) Mean Corpuscular Hemoglobin Concent 34 g/dL (31-37) Red Cell Distribution Width 14.9 % (11.5-14.5) Platelet Count 215 x10^3/uL (140-400) Medications Current Medications Furosemide (Lasix) 40 mg 1X ONCE IVP Last administered on 12/26/19at 11:36; Start 12/26/19 at 11:00; Stop 12/26/19 at 11:03; Status DC Albuterol/ Ipratropium (Duoneb) 3 ml 1X ONCE NEB Last administered on 12/26/19at 11:16; Start 12/26/19 at 11:00; Stop 12/26/19 at 11:03; Status DC Metoprolol Tartrate (Lopressor Vial) 5 mg 1X ONCE IVP ; Start 12/26/19 at 11:15; Stop 12/26/19 at 11:07; Status DC Metoprolol Tartrate (Lopressor Vial) 5 mg 1X ONCE IVP Last administered on 12/26/19at 11:41; Start 12/26/19 at 11:45; Stop 12/26/19 at 11:46; Status DC Azithromycin 250 ml @ 250 mls/hr 1X ONCE IV Last administered on 12/26/19at 12:16; Start 12/26/19 at 11:45; Stop 12/26/19 at 12:44; Status DC Ceftriaxone Sodium (Rocephin) 1 gm 1X ONCE IVP Last administered on 12/26/19at 12:16; Start 12/26/19 at 11:45; Stop 12/26/19 at 11:46; Status DC Digoxin (Lanoxin) 500 mcg 1X ONCE IV Last administered on 12/26/19at 13:23; Start 12/26/19 at 13:15; Stop 12/26/19 at 13:16; Status DC Aspirin (Ecotrin) 325 mg 1X ONCE PO Last administered on 12/26/19at 13:35; Start 12/26/19 at 13:30; Stop 12/26/19 at 13:31; Status DC Ondansetron HCl (Zofran) 4 mg PRN Q4HRS PRN IV NAUSEA/VOMITING; Start 12/26/19 at 15:15 Acetaminophen (Tylenol) 650 mg PRN Q4HRS PRN PO TEMP OVER 100.4F OR MILD PAIN; Start 12/26/19 at 15:15 Docusate Sodium (Colace) 100 mg PRN BID PRN PO CONSTIPATION; Start 12/26/19 at 15:15 Albuterol Sulfate (Ventolin Neb Soln) 2.5 mg PRN Q4HRS PRN NEB SHORTNESS OF BREATH; Start 12/26/19 at 15:15 Guaifenesin (Robitussin) 200 mg PRN Q4HRS PRN PO COUGH; Start 12/26/19 at 15:15 Enoxaparin Sodium (Lovenox 40mg Syringe) 40 mg Q24H SQ Last administered on 12/26/19at 22:03; Start 12/26/19 at 21:00; Stop 12/27/19 at 11:34; Status DC Atorvastatin Calcium (Lipitor) 20 mg HS PO Last administered on 12/28/19at 21:18; Start 12/26/19 at 21:00 Amlodipine Besylate (Norvasc) 5 mg DAILY PO ; Start 12/26/19 at 17:00; Stop 12/26/19 at 17:12; Status DC Carvedilol (Coreg) 25 mg BIDWMEALS PO ; Start 12/26/19 at 17:00; Stop 12/26/19 at 17:12; Status DC Losartan Potassium (Cozaar) 50 mg DAILY PO ; Start 12/26/19 at 17:00; Stop 12/26/19 at 17:12; Status DC Bumetanide (Bumex) 1 mg BID92 IV ; Start 12/26/19 at 15:15; Stop 12/26/19 at 17:14; Status DC Metoprolol Tartrate (Lopressor) 25 mg Q6HRS PO Last administered on 12/29/19at 06:08; Start 12/26/19 at 18:00 Bumetanide (Bumex) 1 mg DAILY IV Last administered on 12/29/19at 08:27; Start 12/27/19 at 09:00 Perflutren Protein Type A Microsphe (Optison) 0.66 mg STK-MED ONCE IV ; Start 12/27/19 at 08:02; Stop 12/27/19 at 08:02; Status DC Diltiazem HCl 125 mg/Sodium Chloride 125 ml @ 5 mls/hr CONT PRN IV SEE I/O RECORD Last administered on 12/28/19at 02:33; Start 12/27/19 at 09:45; Stop 12/29/19 at 10:18; Status DC Digoxin (Lanoxin) 250 mcg 1X ONCE IV Last administered on 12/27/19at 09:58; Start 12/27/19 at 09:45; Stop 12/27/19 at 09:46; Status DC Heparin Sodium/ Dextrose 250 ml @ 20 mls/hr CONT PRN IV PER PROTOCOL Last administered on 12/27/19at 23:42; Start 12/27/19 at 11:30; Stop 12/29/19 at 10:17; Status DC Heparin Sodium (Porcine) (Heparin Sodium) 4,300 unit PRN Q6HRS PRN IV FOR UFH LEVEL LESS THAN 0.2; Start 12/27/19 at 11:30; Stop 12/29/19 at 10:19; Status DC Info (Anti-Coagulation Monitoring By Pharmacy) 1 each PRN DAILY PRN MC SEE COMMENTS Last administered on 12/28/19at 08:10; Start 12/27/19 at 15:30 Ringer's Solution 1,000 ml @ 50 mls/hr Q20H IV ; Start 12/28/19 at 07:00; Stop 12/28/19 at 18:59; Status DC Sodium Chloride (Normal Saline Flush) 10 ml QSHIFT PRN IV AFTER MEDS AND BLOOD DRAWS; Start 12/27/19 at 17:00 Hydralazine HCl (Apresoline Inj) 10 mg PRN Q4HRS PRN IVP ELEVATED BP, SEE COMMENTS Last administered on 12/28/19at 09:21; Start 12/27/19 at 22:15 Lidocaine HCl (Viscous Lidocaine) 15 ml 1X ONCE SWSW ; Start 12/28/19 at 07:00; Stop 12/28/19 at 07:07; Status DC Lidocaine HCl (Xylocaine 2% Topical 30gm Tube) 1 adan 1X ONCE TP ; Start 12/28/19 at 07:00; Stop 12/28/19 at 07:07; Status DC Benzocaine (Hurricaine One) 2 spray 1X ONCE MM ; Start 12/28/19 at 07:00; Stop 12/28/19 at 07:07; Status DC Diltiazem HCl (Cardizem 24hr Cd) 180 mg DAILY PO Last administered on 12/28/19at 09:17; Start 12/28/19 at 09:00; Stop 12/29/19 at 10:18; Status DC Apixaban (Eliquis) 5 mg BID PO Last administered on 12/29/19at 08:27; Start 12/29/19 at 09:00 Apixaban (Eliquis) 5 mg 1X ONCE PO Last administered on 12/28/19at 15:15; Start 12/28/19 at 15:15; Stop 12/28/19 at 15:16; Status DC Apixaban (Eliquis) 5 mg 1X ONCE PO Last administered on 12/28/19at 23:40; Start 12/28/19 at 23:00; Stop 12/28/19 at 23:01; Status DC Diltiazem HCl (Cardizem 24hr Cd) 120 mg 1X ONCE PO ; Start 12/28/19 at 17:15; Stop 12/28/19 at 17:16; Status DC Diltiazem HCl (Cardizem 24hr Cd) 240 mg DAILY PO Last administered on 12/29/19at 08:27; Start 12/29/19 at 09:00 Diltiazem HCl (Cardizem 24hr Cd) 120 mg 1X ONCE PO Last administered on 12/28/19at 17:36; Start 12/28/19 at 17:30; Stop 12/28/19 at 17:31; Status DC Active Scripts Active Reported Amlodipine-Valsartan 10-160 mg (Amlodipine/Valsartan) 1 Each Tablet 0.5 Tab PO DAILY 30 Days Atorvastatin Calcium 20 Mg Tablet 20 Mg PO HS Carvedilol 25 Mg Tablet 25 Mg PO BIDWMEALS Vitals/I & O Vital Sign - Last 24 Hours 12/28/19 12/28/19 12/28/19 12/28/19 11:00 12:00 15:00 17:36 Temp 97.8 97.4 97.8 97.4 Pulse 71 96 96 111 Resp 20 B/P (MAP) 168/106 (126) 152/91 152/91 (111) Pulse Ox 97 96 O2 Delivery Room Air Room Air 12/28/19 12/28/19 12/28/19 12/28/19 17:44 19:50 20:00 23:22 Temp 97.8 98.0 97.8 98.0 Pulse 119 82 76 Resp 20 20 B/P (MAP) 144/101 156/74 (101) 155/80 (105) Pulse Ox 96 98 O2 Delivery Room Air Room Air Room Air 12/28/19 12/29/19 12/29/19 12/29/19 23:40 03:07 06:08 07:00 Temp 98.4 97.6 98.4 97.6 Pulse 76 74 74 75 Resp 18 18 B/P (MAP) 155/80 174/84 (114) 174/84 166/98 (120) Pulse Ox 95 95 O2 Delivery Room Air Room Air 12/29/19 12/29/19 12/29/19 08:00 08:27 08:43 Pulse 75 B/P (MAP) 166/98 Pulse Ox 95 O2 Delivery Room Air Room Air Intake and Output 12/28/19 12/28/19 12/29/19 15:00 23:00 07:00 Intake Total 100 ml Output Total 2400 ml 500 ml Balance -2400 ml -400 ml ELIZABETH SCHAFFER MD Dec 29, 2019 10:56
--- NOTE | 2019-12-29 12:14 | PDOC ---
PROGRESS NOTES Subjective Subjective Patient seen and examined Objective Objective Vital Signs Date Time Temp Pulse Resp B/P (MAP) Pulse Ox O2 Delivery O2 Flow Rate FiO2 12/29/19 11:41 100 167/103 12/29/19 08:43 95 Room Air 12/29/19 07:00 97.6 18 97.6 12/27/19 15:00 2.0 Intake and Output 12/29/19 07:00 Intake Total 100 ml Output Total 2900 ml Balance -2800 ml Intake Oral 100 ml Output Urine Total 2900 ml Physical Exam Abdomen: Normal bowel sounds Heart: Other (irregularly irregular) General: mild distress Lungs: Other (mildly decreased breath sounds) Assessment Assessment Problems Medical Problems: (1) Atrial flutter Status: Acute (2) Cardiogenic pulmonary edema Status: Acute 1. Acute systolic CHF: Continues to improve. Adjusting beta blockers. 2. HTN urgency: also improved 3. Atrial flutter with RVR. Rate controlled. Does not require BRAD/CV at this time with better control. Tapering up beta blockers mildly. 4. COPD. no wheezing. 5. CKD3: Cr stable 6. Hx of ANALI; no CPAP use 7. Morbid obesity 8. Remote hx of PAFIB 9. Chronic Venous insufficiency 10. HLP 11. Cardiomyopathy: EF at 25% possibly tachy induced CM Comment Review of Relevant I have reviewed the following items shaheen (where applicable) has been applied. Labs Laboratory Tests Test 12/27/19 20:00 12/28/19 01:50 12/28/19 08:45 Heparin Anti-Xa Act, Unfractionated 0.46 IU/mL (0.30-0.70) 0.57 IU/mL (0.30-0.70) 0.50 IU/mL (0.30-0.70) White Blood Count 8.9 x10^3/uL (4.0-11.0) Red Blood Count 4.68 x10^6/uL (4.30-5.70) Hemoglobin 13.5 g/dL (13.0-17.5) Hematocrit 39.9 % (39.0-53.0) Mean Corpuscular Volume 85 fL (79-100) Mean Corpuscular Hemoglobin 29 pg (25-35) Mean Corpuscular Hemoglobin Concent 34 g/dL (31-37) Red Cell Distribution Width 14.9 % (11.5-14.5) Platelet Count 215 x10^3/uL (140-400) Medications Current Medications Furosemide (Lasix) 40 mg 1X ONCE IVP Last administered on 12/26/19at 11:36; Start 12/26/19 at 11:00; Stop 12/26/19 at 11:03; Status DC Albuterol/ Ipratropium (Duoneb) 3 ml 1X ONCE NEB Last administered on 12/26/19at 11:16; Start 12/26/19 at 11:00; Stop 12/26/19 at 11:03; Status DC Metoprolol Tartrate (Lopressor Vial) 5 mg 1X ONCE IVP ; Start 12/26/19 at 11:15; Stop 12/26/19 at 11:07; Status DC Metoprolol Tartrate (Lopressor Vial) 5 mg 1X ONCE IVP Last administered on 12/26/19at 11:41; Start 12/26/19 at 11:45; Stop 12/26/19 at 11:46; Status DC Azithromycin 250 ml @ 250 mls/hr 1X ONCE IV Last administered on 12/26/19at 12:16; Start 12/26/19 at 11:45; Stop 12/26/19 at 12:44; Status DC Ceftriaxone Sodium (Rocephin) 1 gm 1X ONCE IVP Last administered on 12/26/19at 12:16; Start 12/26/19 at 11:45; Stop 12/26/19 at 11:46; Status DC Digoxin (Lanoxin) 500 mcg 1X ONCE IV Last administered on 12/26/19at 13:23; Start 12/26/19 at 13:15; Stop 12/26/19 at 13:16; Status DC Aspirin (Ecotrin) 325 mg 1X ONCE PO Last administered on 12/26/19at 13:35; Start 12/26/19 at 13:30; Stop 12/26/19 at 13:31; Status DC Ondansetron HCl (Zofran) 4 mg PRN Q4HRS PRN IV NAUSEA/VOMITING; Start 12/26/19 at 15:15 Acetaminophen (Tylenol) 650 mg PRN Q4HRS PRN PO TEMP OVER 100.4F OR MILD PAIN; Start 12/26/19 at 15:15 Docusate Sodium (Colace) 100 mg PRN BID PRN PO CONSTIPATION; Start 12/26/19 at 15:15 Albuterol Sulfate (Ventolin Neb Soln) 2.5 mg PRN Q4HRS PRN NEB SHORTNESS OF BREATH; Start 12/26/19 at 15:15 Guaifenesin (Robitussin) 200 mg PRN Q4HRS PRN PO COUGH; Start 12/26/19 at 15:15 Enoxaparin Sodium (Lovenox 40mg Syringe) 40 mg Q24H SQ Last administered on 12/26/19at 22:03; Start 12/26/19 at 21:00; Stop 12/27/19 at 11:34; Status DC Atorvastatin Calcium (Lipitor) 20 mg HS PO Last administered on 12/28/19at 21:18; Start 12/26/19 at 21:00 Amlodipine Besylate (Norvasc) 5 mg DAILY PO ; Start 12/26/19 at 17:00; Stop 12/26/19 at 17:12; Status DC Carvedilol (Coreg) 25 mg BIDWMEALS PO ; Start 12/26/19 at 17:00; Stop 12/26/19 at 17:12; Status DC Losartan Potassium (Cozaar) 50 mg DAILY PO ; Start 12/26/19 at 17:00; Stop 12/26/19 at 17:12; Status DC Bumetanide (Bumex) 1 mg BID92 IV ; Start 12/26/19 at 15:15; Stop 12/26/19 at 17:14; Status DC Metoprolol Tartrate (Lopressor) 25 mg Q6HRS PO Last administered on 12/29/19at 11:41; Start 12/26/19 at 18:00 Bumetanide (Bumex) 1 mg DAILY IV Last administered on 12/29/19at 08:27; Start 12/27/19 at 09:00 Perflutren Protein Type A Microsphe (Optison) 0.66 mg STK-MED ONCE IV ; Start 12/27/19 at 08:02; Stop 12/27/19 at 08:02; Status DC Diltiazem HCl 125 mg/Sodium Chloride 125 ml @ 5 mls/hr CONT PRN IV SEE I/O RECORD Last administered on 12/28/19at 02:33; Start 12/27/19 at 09:45; Stop 12/29/19 at 10:18; Status DC Digoxin (Lanoxin) 250 mcg 1X ONCE IV Last administered on 12/27/19at 09:58; Start 12/27/19 at 09:45; Stop 12/27/19 at 09:46; Status DC Heparin Sodium/ Dextrose 250 ml @ 20 mls/hr CONT PRN IV PER PROTOCOL Last administered on 12/27/19at 23:42; Start 12/27/19 at 11:30; Stop 12/29/19 at 10:17; Status DC Heparin Sodium (Porcine) (Heparin Sodium) 4,300 unit PRN Q6HRS PRN IV FOR UFH LEVEL LESS THAN 0.2; Start 12/27/19 at 11:30; Stop 12/29/19 at 10:19; Status DC Info (Anti-Coagulation Monitoring By Pharmacy) 1 each PRN DAILY PRN MC SEE COMMENTS Last administered on 12/28/19at 08:10; Start 12/27/19 at 15:30 Ringer's Solution 1,000 ml @ 50 mls/hr Q20H IV ; Start 12/28/19 at 07:00; Stop 12/28/19 at 18:59; Status DC Sodium Chloride (Normal Saline Flush) 10 ml QSHIFT PRN IV AFTER MEDS AND BLOOD DRAWS; Start 12/27/19 at 17:00 Hydralazine HCl (Apresoline Inj) 10 mg PRN Q4HRS PRN IVP ELEVATED BP, SEE COMMENTS Last administered on 12/28/19at 09:21; Start 12/27/19 at 22:15 Lidocaine HCl (Viscous Lidocaine) 15 ml 1X ONCE SWSW ; Start 12/28/19 at 07:00; Stop 12/28/19 at 07:07; Status DC Lidocaine HCl (Xylocaine 2% Topical 30gm Tube) 1 adan 1X ONCE TP ; Start 12/28/19 at 07:00; Stop 12/28/19 at 07:07; Status DC Benzocaine (Hurricaine One) 2 spray 1X ONCE MM ; Start 12/28/19 at 07:00; Stop 12/28/19 at 07:07; Status DC Diltiazem HCl (Cardizem 24hr Cd) 180 mg DAILY PO Last administered on 12/28/19at 09:17; Start 12/28/19 at 09:00; Stop 12/29/19 at 10:18; Status DC Apixaban (Eliquis) 5 mg BID PO Last administered on 12/29/19at 08:27; Start 12/29/19 at 09:00 Apixaban (Eliquis) 5 mg 1X ONCE PO Last administered on 12/28/19at 15:15; Start 12/28/19 at 15:15; Stop 12/28/19 at 15:16; Status DC Apixaban (Eliquis) 5 mg 1X ONCE PO Last administered on 12/28/19at 23:40; Start 12/28/19 at 23:00; Stop 12/28/19 at 23:01; Status DC Diltiazem HCl (Cardizem 24hr Cd) 120 mg 1X ONCE PO ; Start 12/28/19 at 17:15; Stop 12/28/19 at 17:16; Status DC Diltiazem HCl (Cardizem 24hr Cd) 240 mg DAILY PO Last administered on 12/29/19at 08:27; Start 12/29/19 at 09:00 Diltiazem HCl (Cardizem 24hr Cd) 120 mg 1X ONCE PO Last administered on 12/28/19at 17:36; Start 12/28/19 at 17:30; Stop 12/28/19 at 17:31; Status DC Active Scripts Active Reported Amlodipine-Valsartan 10-160 mg (Amlodipine/Valsartan) 1 Each Tablet 0.5 Tab PO DAILY 30 Days Atorvastatin Calcium 20 Mg Tablet 20 Mg PO HS Carvedilol 25 Mg Tablet 25 Mg PO BIDWMEALS Vitals/I & O Vital Sign - Last 24 Hours 12/28/19 12/28/19 12/28/19 12/28/19 15:00 17:36 17:44 19:50 Temp 97.4 97.8 97.4 97.8 Pulse 96 111 119 82 Resp 20 20 B/P (MAP) 152/91 (111) 144/101 156/74 (101) Pulse Ox 96 96 O2 Delivery Room Air Room Air 12/28/19 12/28/19 12/28/19 12/29/19 20:00 23:22 23:40 03:07 Temp 98.0 98.4 98.0 98.4 Pulse 76 76 74 Resp 20 18 B/P (MAP) 155/80 (105) 155/80 174/84 (114) Pulse Ox 98 95 O2 Delivery Room Air Room Air Room Air 12/29/19 12/29/19 12/29/19 12/29/19 06:08 07:00 08:00 08:27 Temp 97.6 97.6 Pulse 74 75 75 Resp 18 B/P (MAP) 174/84 166/98 (120) 166/98 Pulse Ox 95 O2 Delivery Room Air Room Air 12/29/19 12/29/19 08:43 11:41 Pulse 100 B/P (MAP) 167/103 Pulse Ox 95 O2 Delivery Room Air Intake and Output 12/28/19 12/28/19 12/29/19 15:00 23:00 07:00 Intake Total 100 ml Output Total 2400 ml 500 ml Balance -2400 ml -400 ml GRICELDA FLOWERS MD Dec 29, 2019 12:14
[2019-12-29] MEDS: hydrALAZINE 20 MG/ML VIAL. IVP PRN (20:12)
[2019-12-29] MEDS: ATORVASTATIN CALCIUM 20 MG TABLET PO SCH (20:12)
--- NOTE | 2019-12-29 21:11 | NUR ---
BP 225/113, HR 83 at shift change. Gave Hydralazine 10mg IVP as need for Hypertension. BP 250/88, HR 83. Sitting in chair. Watching TV. Call light at hand.
[2019-12-30 03:38] VITALS: BP 150/92
[2019-12-30 04:17] LABS: HEMATOCRIT 43.6 % (39.0-53.0); HEMOGLOBIN 14.4 g/dL (13.0-17.5); RED BLOOD COUNT 5.12 x10^6/uL (4.30-5.70); RED CELL DISTRIBUTION WIDTH 14.6 % (11.5-14.5); WHITE BLOOD COUNT 11.6 x10^3/uL (4.0-11.0)
[2019-12-30 07:00] VITALS: BP 176/111
[2019-12-30] MEDS: METOPROLOL TART IMMED RELEASE 25 MG TABLET. PO SCH (07:49)
[2019-12-30] MEDS: BUMETANIDE 1 MG/4 ML VIAL. IV SCH (07:50)
[2019-12-30] MEDS: APIXABAN 5 MG TABLET. PO SCH ×2 (07:50→21:12)
--- NOTE | 2019-12-30 10:18 | PDOC ---
PROGRESS NOTES Chief Complaint Chief Complaint IMPRESSION Acute diastolic heart failure ON ECHO //ejection fraction is severely impaired. Ejection Fraction is 25%. HTN urgency, remains labile Arrhythmia: appears to be atrial flutter with RVR COPD CKD3: unclear baseline Cr Hx of ANALI; no CPAP use Morbid obesity Remote hx of PAFIB Chronic Venous insufficiency HYPERLIPIDEMIA Cardiomyopathy: EF at 25% possibly tachy induced CM History of Present Illness History of Present Illness 12/30 Patient was seen and examined in cvc Chart including recent doppler and V/Q study were reviewed Progress was d/w RN Patient on IV diuretic, inc slowly today Vitals Vitals Vital Signs Date Time Temp Pulse Resp B/P (MAP) Pulse Ox O2 Delivery O2 Flow Rate FiO2 12/30/19 08:00 Room Air 12/30/19 07:50 73 176/111 12/30/19 07:00 97.8 18 97 97.8 Physical Exam General: Alert, Oriented X3, Cooperative, No acute distress Heart: Normal S1, Other (distant heart sonds unable to appreciate due to body habitus) Lungs: Clear Abdomen: Normal bowel sounds Extremities: No clubbing, No cyanosis, Other (2+ bilateral LE pitting edema) Skin: No breakdown, No significant lesion Labs LABS Laboratory Tests Test 12/30/19 03:45 White Blood Count 11.6 x10^3/uL (4.0-11.0) Red Blood Count 5.12 x10^6/uL (4.30-5.70) Hemoglobin 14.4 g/dL (13.0-17.5) Hematocrit 43.6 % (39.0-53.0) Mean Corpuscular Volume 85 fL (79-100) Mean Corpuscular Hemoglobin 28 pg (25-35) Mean Corpuscular Hemoglobin Concent 33 g/dL (31-37) Red Cell Distribution Width 14.6 % (11.5-14.5) Platelet Count 253 x10^3/uL (140-400) Assessment and Plan Assessmemt and Plan Problems Medical Problems: (1) Atrial flutter Status: Acute (2) Cardiogenic pulmonary edema Status: Acute Comment Review of Relevant I have reviewed the following items shaheen (where applicable) has been applied. Labs Laboratory Tests Test 12/30/19 03:45 White Blood Count 11.6 x10^3/uL (4.0-11.0) Red Blood Count 5.12 x10^6/uL (4.30-5.70) Hemoglobin 14.4 g/dL (13.0-17.5) Hematocrit 43.6 % (39.0-53.0) Mean Corpuscular Volume 85 fL (79-100) Mean Corpuscular Hemoglobin 28 pg (25-35) Mean Corpuscular Hemoglobin Concent 33 g/dL (31-37) Red Cell Distribution Width 14.6 % (11.5-14.5) Platelet Count 253 x10^3/uL (140-400) Laboratory Tests Test 12/30/19 03:45 White Blood Count 11.6 x10^3/uL (4.0-11.0) Red Blood Count 5.12 x10^6/uL (4.30-5.70) Hemoglobin 14.4 g/dL (13.0-17.5) Hematocrit 43.6 % (39.0-53.0) Mean Corpuscular Volume 85 fL (79-100) Mean Corpuscular Hemoglobin 28 pg (25-35) Mean Corpuscular Hemoglobin Concent 33 g/dL (31-37) Red Cell Distribution Width 14.6 % (11.5-14.5) Platelet Count 253 x10^3/uL (140-400) Medications Current Medications Furosemide (Lasix) 40 mg 1X ONCE IVP Last administered on 12/26/19at 11:36; Start 12/26/19 at 11:00; Stop 12/26/19 at 11:03; Status DC Albuterol/ Ipratropium (Duoneb) 3 ml 1X ONCE NEB Last administered on 12/26/19at 11:16; Start 12/26/19 at 11:00; Stop 12/26/19 at 11:03; Status DC Metoprolol Tartrate (Lopressor Vial) 5 mg 1X ONCE IVP ; Start 12/26/19 at 11: 15; Stop 12/26/19 at 11:07; Status DC Metoprolol Tartrate (Lopressor Vial) 5 mg 1X ONCE IVP Last administered on 12/26/19at 11:41; Start 12/26/19 at 11:45; Stop 12/26/19 at 11:46; Status DC Azithromycin 250 ml @ 250 mls/hr 1X ONCE IV Last administered on 12/26/19at 12:16; Start 12/26/19 at 11:45; Stop 12/26/19 at 12:44; Status DC Ceftriaxone Sodium (Rocephin) 1 gm 1X ONCE IVP Last administered on 12/26/19at 12:16; Start 12/26/19 at 11:45; Stop 12/26/19 at 11:46; Status DC Digoxin (Lanoxin) 500 mcg 1X ONCE IV Last administered on 12/26/19at 13:23; Start 12/26/19 at 13:15; Stop 12/26/19 at 13:16; Status DC Aspirin (Ecotrin) 325 mg 1X ONCE PO Last administered on 12/26/19at 13:35; Start 12/26/19 at 13:30; Stop 12/26/19 at 13:31; Status DC Ondansetron HCl (Zofran) 4 mg PRN Q4HRS PRN IV NAUSEA/VOMITING; Start 12/26/19 at 15:15 Acetaminophen (Tylenol) 650 mg PRN Q4HRS PRN PO TEMP OVER 100.4F OR MILD PAIN; Start 12/26/19 at 15:15 Docusate Sodium (Colace) 100 mg PRN BID PRN PO CONSTIPATION; Start 12/26/19 at 15:15 Albuterol Sulfate (Ventolin Neb Soln) 2.5 mg PRN Q4HRS PRN NEB SHORTNESS OF BREATH; Start 12/26/19 at 15:15 Guaifenesin (Robitussin) 200 mg PRN Q4HRS PRN PO COUGH; Start 12/26/19 at 15:15 Enoxaparin Sodium (Lovenox 40mg Syringe) 40 mg Q24H SQ Last administered on 12/26/19at 22:03; Start 12/26/19 at 21:00; Stop 12/27/19 at 11:34; Status DC Atorvastatin Calcium (Lipitor) 20 mg HS PO Last administered on 12/29/19at 20:12; Start 12/26/19 at 21:00 Amlodipine Besylate (Norvasc) 5 mg DAILY PO ; Start 12/26/19 at 17:00; Stop 12/26/19 at 17:12; Status DC Carvedilol (Coreg) 25 mg BIDWMEALS PO ; Start 12/26/19 at 17:00; Stop 12/26/19 at 17:12; Status DC Losartan Potassium (Cozaar) 50 mg DAILY PO ; Start 12/26/19 at 17:00; Stop 12/26/19 at 17:12; Status DC Bumetanide (Bumex) 1 mg BID92 IV ; Start 12/26/19 at 15:15; Stop 12/26/19 at 17:14; Status DC Metoprolol Tartrate (Lopressor) 25 mg Q6HRS PO Last administered on 12/29/19at 11:41; Start 12/26/19 at 18:00; Stop 12/29/19 at 12:12; Status DC Bumetanide (Bumex) 1 mg DAILY IV Last administered on 12/30/19at 07:50; Start 12/27/19 at 09:00 Perflutren Protein Type A Microsphe (Optison) 0.66 mg STK-MED ONCE IV ; Start 12/27/19 at 08:02; Stop 12/27/19 at 08:02; Status DC Diltiazem HCl 125 mg/Sodium Chloride 125 ml @ 5 mls/hr CONT PRN IV SEE I/O RECORD Last administered on 12/28/19at 02:33; Start 12/27/19 at 09:45; Stop 12/29/19 at 10:18; Status DC Digoxin (Lanoxin) 250 mcg 1X ONCE IV Last administered on 12/27/19at 09:58; Start 12/27/19 at 09:45; Stop 12/27/19 at 09:46; Status DC Heparin Sodium/ Dextrose 250 ml @ 20 mls/hr CONT PRN IV PER PROTOCOL Last administered on 12/27/19at 23:42; Start 12/27/19 at 11:30; Stop 12/29/19 at 10:17; Status DC Heparin Sodium (Porcine) (Heparin Sodium) 4,300 unit PRN Q6HRS PRN IV FOR UFH LEVEL LESS THAN 0.2; Start 12/27/19 at 11:30; Stop 12/29/19 at 10:19; Status DC Info (Anti-Coagulation Monitoring By Pharmacy) 1 each PRN DAILY PRN MC SEE COMMENTS Last administered on 12/28/19at 08:10; Start 12/27/19 at 15:30 Ringer's Solution 1,000 ml @ 50 mls/hr Q20H IV ; Start 12/28/19 at 07:00; Stop 12/28/19 at 18:59; Status DC Sodium Chloride (Normal Saline Flush) 10 ml QSHIFT PRN IV AFTER MEDS AND BLOOD DRAWS; Start 12/27/19 at 17:00 Hydralazine HCl (Apresoline Inj) 10 mg PRN Q4HRS PRN IVP ELEVATED BP, SEE COMMENTS Last administered on 12/29/19at 20:12; Start 12/27/19 at 22:15 Lidocaine HCl (Viscous Lidocaine) 15 ml 1X ONCE SWSW ; Start 12/28/19 at 07:00; Stop 12/28/19 at 07:07; Status DC Lidocaine HCl (Xylocaine 2% Topical 30gm Tube) 1 adan 1X ONCE TP ; Start 12/28/19 at 07:00; Stop 12/28/19 at 07:07; Status DC Benzocaine (Hurricaine One) 2 spray 1X ONCE MM ; Start 12/28/19 at 07:00; Stop 12/28/19 at 07:07; Status DC Diltiazem HCl (Cardizem 24hr Cd) 180 mg DAILY PO Last administered on 12/28/19at 09:17; Start 12/28/19 at 09:00; Stop 12/29/19 at 10:18; Status DC Apixaban (Eliquis) 5 mg BID PO Last administered on 12/30/19at 07:50; Start 12/29/19 at 09:00 Apixaban (Eliquis) 5 mg 1X ONCE PO Last administered on 12/28/19at 15:15; Start 12/28/19 at 15:15; Stop 12/28/19 at 15:16; Status DC Apixaban (Eliquis) 5 mg 1X ONCE PO Last administered on 12/28/19at 23:40; Start 12/28/19 at 23:00; Stop 12/28/19 at 23:01; Status DC Diltiazem HCl (Cardizem 24hr Cd) 120 mg 1X ONCE PO ; Start 12/28/19 at 17:15; Stop 12/28/19 at 17:16; Status DC Diltiazem HCl (Cardizem 24hr Cd) 240 mg DAILY PO Last administered on 12/30/19at 07:50; Start 12/29/19 at 09:00 Diltiazem HCl (Cardizem 24hr Cd) 120 mg 1X ONCE PO Last administered on 12/28/19at 17:36; Start 12/28/19 at 17:30; Stop 12/28/19 at 17:31; Status DC Metoprolol Tartrate (Lopressor) 75 mg BID PO Last administered on 12/30/19at 07:49; Start 12/29/19 at 21:00 Diltiazem HCl (Cardizem 24hr Cd) 120 mg 1X ONCE PO Last administered on 12/29/19at 17:02; Start 12/29/19 at 17:30; Stop 12/29/19 at 17:31; Status DC Active Scripts Active Reported Amlodipine-Valsartan 10-160 mg (Amlodipine/Valsartan) 1 Each Tablet 0.5 Tab PO DAILY 30 Days Atorvastatin Calcium 20 Mg Tablet 20 Mg PO HS Carvedilol 25 Mg Tablet 25 Mg PO BIDWMEALS Vitals/I & O Vital Sign - Last 24 Hours 12/29/19 12/29/19 12/29/19 12/29/19 11:00 11:41 15:00 17:02 Temp 98.2 98.0 98.2 98.0 Pulse 71 100 66 66 Resp 18 18 B/P (MAP) 167/103 (124) 167/103 155/105 (122) 155/105 Pulse Ox 97 97 O2 Delivery Room Air Room Air 12/29/19 12/29/19 12/29/19 12/29/19 19:45 19:48 19:50 20:12 Temp 98.3 98.3 Pulse 95 83 83 Resp 18 B/P (MAP) 248/117 (160) 225/113 (150) 225/113 Pulse Ox 97 O2 Delivery Room Air Room Air 12/29/19 12/29/19 12/29/19 12/30/19 20:12 21:10 23:28 03:38 Temp 97.9 98.6 97.9 98.6 Pulse 83 83 74 102 Resp 16 18 B/P (MAP) 225/113 150/88 (108) 159/85 (109) 150/92 (111) Pulse Ox 97 96 O2 Delivery Room Air Room Air 12/30/19 12/30/19 12/30/19 12/30/19 07:00 07:49 07:50 08:00 Temp 97.8 97.8 Pulse 116 146 73 Resp 18 B/P (MAP) 176/111 (132) 176/111 176/111 Pulse Ox 97 O2 Delivery Room Air Room Air Intake and Output 12/29/19 12/29/19 12/30/19 15:00 23:00 07:00 Intake Total 1440 ml 350 ml 120 ml Output Total 700 ml 475 ml 1275 ml Balance 740 ml -125 ml -1155 ml ELIZABETH SCHAFFER MD Dec 30, 2019 10:18
[2019-12-30 11:00] VITALS: BP 153/95
[2019-12-30] MEDS: LISINOPRIL 20 MG TABLET PO SCH ×2 (12:21→21:12)
--- NOTE | 2019-12-30 12:55 | PDOC ---
PROGRESS NOTES Subjective Subjective Patient seen and examined Objective Objective Vital Signs Date Time Temp Pulse Resp B/P (MAP) Pulse Ox O2 Delivery O2 Flow Rate FiO2 12/30/19 12:21 114 153/95 12/30/19 11:00 97.9 18 96 Room Air 97.9 12/27/19 15:00 2.0 Intake and Output 12/30/19 07:00 Intake Total 1910 ml Output Total 2450 ml Balance -540 ml Intake Oral 1910 ml Output Urine Total 2450 ml # Voids 1 Physical Exam Abdomen: Normal bowel sounds Heart: Other ( irregularly irregular) General: mild distress Lungs: Other (mildly decreased breath sounds) Assessment Assessment Problems Medical Problems: (1) Atrial flutter Status: Acute (2) Cardiogenic pulmonary edema Status: Acute 1. Acute systolic CHF: Continues to improve but mild LE elevated blood pressure today. We will mildly increased diuresis. 2. HTN urgency: also improved but blood pressure elevated. We will start zaid inhibitors. 3. Atrial flutter with RVR. Rate controlled. Rate has increased somewhat today. We'll increase beta blockers. 4. COPD. no wheezing. 5. CKD3: Cr stable 6. Hx of ANALI; no CPAP use 7. Morbid obesity 8. Remote hx of PAFIB 9. Chronic Venous insufficiency 10. HLP 11. Cardiomyopathy: EF at 25% possibly tachy induced CM. Mildly increase diures is today. Comment Review of Relevant I have reviewed the following items shaheen (where applicable) has been applied. Labs Laboratory Tests Test 12/30/19 03:45 White Blood Count 11.6 x10^3/uL (4.0-11.0) Red Blood Count 5.12 x10^6/uL (4.30-5.70) Hemoglobin 14.4 g/dL (13.0-17.5) Hematocrit 43.6 % (39.0-53.0) Mean Corpuscular Volume 85 fL (79-100) Mean Corpuscular Hemoglobin 28 pg (25-35) Mean Corpuscular Hemoglobin Concent 33 g/dL (31-37) Red Cell Distribution Width 14.6 % (11.5-14.5) Platelet Count 253 x10^3/uL (140-400) Laboratory Tests Test 12/30/19 03:45 White Blood Count 11.6 x10^3/uL (4.0-11.0) Red Blood Count 5.12 x10^6/uL (4.30-5.70) Hemoglobin 14.4 g/dL (13.0-17.5) Hematocrit 43.6 % (39.0-53.0) Mean Corpuscular Volume 85 fL (79-100) Mean Corpuscular Hemoglobin 28 pg (25-35) Mean Corpuscular Hemoglobin Concent 33 g/dL (31-37) Red Cell Distribution Width 14.6 % (11.5-14.5) Platelet Count 253 x10^3/uL (140-400) Medications Current Medications Furosemide (Lasix) 40 mg 1X ONCE IVP Last administered on 12/26/19at 11:36; Start 12/26/19 at 11:00; Stop 12/26/19 at 11:03; Status DC Albuterol/ Ipratropium (Duoneb) 3 ml 1X ONCE NEB Last administered on 12/26/19at 11:16; Start 12/26/19 at 11:00; Stop 12/26/19 at 11:03; Status DC Metoprolol Tartrate (Lopressor Vial) 5 mg 1X ONCE IVP ; Start 12/26/19 at 11:15; Stop 12/26/19 at 11:07; Status DC Metoprolol Tartrate (Lopressor Vial) 5 mg 1X ONCE IVP Last administered on 12/26/19at 11:41; Start 12/26/19 at 11:45; Stop 12/26/19 at 11:46; Status DC Azithromycin 250 ml @ 250 mls/hr 1X ONCE IV Last administered on 12/26/19at 12:16; Start 12/26/19 at 11:45; Stop 12/26/19 at 12:44; Status DC Ceftriaxone Sodium (Rocephin) 1 gm 1X ONCE IVP Last administered on 12/26/19at 12:16; Start 12/26/19 at 11:45; Stop 12/26/19 at 11:46; Status DC Digoxin (Lanoxin) 500 mcg 1X ONCE IV Last administered on 12/26/19at 13:23; Start 12/26/19 at 13:15; Stop 12/26/19 at 13:16; Status DC Aspirin (Ecotrin) 325 mg 1X ONCE PO Last administered on 12/26/19at 13:35; Start 12/26/19 at 13:30; Stop 12/26/19 at 13:31; Status DC Ondansetron HCl (Zofran) 4 mg PRN Q4HRS PRN IV NAUSEA/VOMITING; Start 12/26/19 at 15:15 Acetaminophen (Tylenol) 650 mg PRN Q4HRS PRN PO TEMP OVER 100.4F OR MILD PAIN; Start 12/26/19 at 15:15 Docusate Sodium (Colace) 100 mg PRN BID PRN PO CONSTIPATION; Start 12/26/19 at 15:15 Albuterol Sulfate (Ventolin Neb Soln) 2.5 mg PRN Q4HRS PRN NEB SHORTNESS OF BREATH; Start 12/26/19 at 15:15 Guaifenesin (Robitussin) 200 mg PRN Q4HRS PRN PO COUGH; Start 12/26/19 at 15:15 Enoxaparin Sodium (Lovenox 40mg Syringe) 40 mg Q24H SQ Last administered on 12/26/19at 22:03; Start 12/26/19 at 21:00; Stop 12/27/19 at 11:34; Status DC Atorvastatin Calcium (Lipitor) 20 mg HS PO Last administered on 12/29/19at 20:12; Start 12/26/19 at 21:00 Amlodipine Besylate (Norvasc) 5 mg DAILY PO ; Start 12/26/19 at 17:00; Stop 12/26/19 at 17:12; Status DC Carvedilol (Coreg) 25 mg BIDWMEALS PO ; Start 12/26/19 at 17:00; Stop 12/26/19 at 17:12; Status DC Losartan Potassium (Cozaar) 50 mg DAILY PO ; Start 12/26/19 at 17:00; Stop 12/26/19 at 17:12; Status DC Bumetanide (Bumex) 1 mg BID92 IV ; Start 12/26/19 at 15:15; Stop 12/26/19 at 17:14; Status DC Metoprolol Tartrate (Lopressor) 25 mg Q6HRS PO Last administered on 12/29/19at 11:41; Start 12/26/19 at 18:00; Stop 12/29/19 at 12:12; Status DC Bumetanide (Bumex) 1 mg DAILY IV Last administered on 12/30/19at 07:50; Start 12/27/19 at 09:00 Perflutren Protein Type A Microsphe (Optison) 0.66 mg STK-MED ONCE IV ; Start 12/27/19 at 08:02; Stop 12/27/19 at 08:02; Status DC Diltiazem HCl 125 mg/Sodium Chloride 125 ml @ 5 mls/hr CONT PRN IV SEE I/O RECORD Last administered on 12/28/19at 02:33; Start 12/27/19 at 09:45; Stop 12/29/19 at 10:18; Status DC Digoxin (Lanoxin) 250 mcg 1X ONCE IV Last administered on 12/27/19at 09:58; Start 12/27/19 at 09:45; Stop 12/27/19 at 09:46; Status DC Heparin Sodium/ Dextrose 250 ml @ 20 mls/hr CONT PRN IV PER PROTOCOL Last administered on 12/27/19at 23:42; Start 12/27/19 at 11:30; Stop 12/29/19 at 10:17; Status DC Heparin Sodium (Porcine) (Heparin Sodium) 4,300 unit PRN Q6HRS PRN IV FOR UFH LEVEL LESS THAN 0.2; Start 12/27/19 at 11:30; Stop 12/29/19 at 10:19; Status DC Info (Anti-Coagulation Monitoring By Pharmacy) 1 each PRN DAILY PRN MC SEE COMMENTS Last administered on 12/28/19at 08:10; Start 12/27/19 at 15:30 Ringer's Solution 1,000 ml @ 50 mls/hr Q20H IV ; Start 12/28/19 at 07:00; Stop 12/28/19 at 18:59; Status DC Sodium Chloride (Normal Saline Flush) 10 ml QSHIFT PRN IV AFTER MEDS AND BLOOD DRAWS; Start 12/27/19 at 17:00 Hydralazine HCl (Apresoline Inj) 10 mg PRN Q4HRS PRN IVP ELEVATED BP, SEE COMMENTS Last administered on 12/29/19at 20:12; Start 12/27/19 at 22:15 Lidocaine HCl (Viscous Lidocaine) 15 ml 1X ONCE SWSW ; Start 12/28/19 at 07:00; Stop 12/28/19 at 07:07; Status DC Lidocaine HCl (Xylocaine 2% Topical 30gm Tube) 1 adan 1X ONCE TP ; Start 12/28/19 at 07:00; Stop 12/28/19 at 07:07; Status DC Benzocaine (Hurricaine One) 2 spray 1X ONCE MM ; Start 12/28/19 at 07:00; Stop 12/28/19 at 07:07; Status DC Diltiazem HCl (Cardizem 24hr Cd) 180 mg DAILY PO Last administered on 12/28/19at 09:17; Start 12/28/19 at 09:00; Stop 12/29/19 at 10:18; Status DC Apixaban (Eliquis) 5 mg BID PO Last administered on 12/30/19at 07:50; Start 12/29/19 at 09:00 Apixaban (Eliquis) 5 mg 1X ONCE PO Last administered on 12/28/19at 15:15; Start 12/28/19 at 15:15; Stop 12/28/19 at 15:16; Status DC Apixaban (Eliquis) 5 mg 1X ONCE PO Last administered on 12/28/19at 23:40; Start 12/28/19 at 23:00; Stop 12/28/19 at 23:01; Status DC Diltiazem HCl (Cardizem 24hr Cd) 120 mg 1X ONCE PO ; Start 12/28/19 at 17:15; Stop 12/28/19 at 17:16; Status DC Diltiazem HCl (Cardizem 24hr Cd) 240 mg DAILY PO Last administered on 12/30/19at 07:50; Start 12/29/19 at 09:00 Diltiazem HCl (Cardizem 24hr Cd) 120 mg 1X ONCE PO Last administered on 12/28/19at 17:36; Start 12/28/19 at 17:30; Stop 12/28/19 at 17:31; Status DC Metoprolol Tartrate (Lopressor) 75 mg BID PO Last administered on 12/30/19at 07:49; Start 12/29/19 at 21:00; Stop 12/30/19 at 12:06; Status DC Diltiazem HCl (Cardizem 24hr Cd) 120 mg 1X ONCE PO Last administered on 12/29/19at 17:02; Start 12/29/19 at 17:30; Stop 12/29/19 at 17:31; Status DC Metoprolol Tartrate (Lopressor) 100 mg BID PO ; Start 12/30/19 at 21:00 Lisinopril (Prinivil) 20 mg BID PO Last administered on 12/30/19at 12:21; Start 12/30/19 at 12:15 Active Scripts Active Reported Amlodipine-Valsartan 10-160 mg (Amlodipine/Valsartan) 1 Each Tablet 0.5 Tab PO DAILY 30 Days Atorvastatin Calcium 20 Mg Tablet 20 Mg PO HS Carvedilol 25 Mg Tablet 25 Mg PO BIDWMEALS Vitals/I & O Vital Sign - Last 24 Hours 12/29/19 12/29/19 12/29/19 12/29/19 15:00 17:02 19:45 19:48 Temp 98.0 98.3 98.0 98.3 Pulse 66 66 95 83 Resp 18 18 B/P (MAP) 155/105 (122) 155/105 248/117 (160) 225/113 (150) Pulse Ox 97 97 O2 Delivery Room Air Room Air 12/29/19 12/29/19 12/29/19 12/29/19 19:50 20:12 20:12 21:10 Pulse 83 83 83 B/P (MAP) 225/113 225/113 150/88 (108) O2 Delivery Room Air 12/29/19 12/30/19 12/30/19 12/30/19 23:28 03:38 07:00 07:49 Temp 97.9 98.6 97.8 97.9 98.6 97.8 Pulse 74 102 116 146 Resp 16 18 18 B/P (MAP) 159/85 (109) 150/92 (111) 176/111 (132) 176/111 Pulse Ox 97 96 97 O2 Delivery Room Air Room Air Room Air 12/30/19 12/30/19 12/30/19 12/30/19 07:50 08:00 11:00 12:21 Temp 97.9 97.9 Pulse 73 88 114 Resp 18 B/P (MAP) 176/111 153/95 (114) 153/95 Pulse Ox 96 O2 Delivery Room Air Room Air Intake and Output 12/29/19 12/29/19 12/30/19 15:00 23:00 07:00 Intake Total 1440 ml 350 ml 120 ml Output Total 700 ml 475 ml 1275 ml Balance 740 ml -125 ml -1155 ml GRICELDA FLOWERS MD Dec 30, 2019 12:55
[2019-12-30] MEDS ORDERED: FUROSEMIDE 40 MG/4 ML VIAL. IVP ONE (13:15)
[2019-12-30 15:00] VITALS: BP 157/93
[2019-12-30 19:45] VITALS: BP 165/81
[2019-12-30] MEDS: ATORVASTATIN CALCIUM 20 MG TABLET PO SCH (21:12)
[2019-12-30] MEDS: METOPROLOL TART IMMED RELEASE 50 MG TABLET. PO SCH (21:12)
--- NOTE | 2019-12-30 22:39 | NUR ---
notified at this time that patient had a 37 beat run of Vtach on the cushion stuffer. Upon interview, pt states he was not symptomatic. Orders received for amiodarone gtt. Pt updated on plan of care, questions answered. Pt verbalized understanding.
[2019-12-30] MEDS ORDERED: AMIODARONE 450 MG in IV DEXTROSE 5% 250 ML IV PRN (23:00)
[2019-12-30] MEDS ORDERED: AMIODARONE 150 MG in IV DEXTROSE 5% 100ML 100 ML IV ONE (23:00)
[2019-12-30 23:17] LABS: CALCIUM 8.9 mg/dL (8.5-10.1); CREATININE 1.7 mg/dL (0.7-1.3); GFR 40.9; MAGNESIUM 1.9 mg/dL (1.8-2.4); POTASSIUM 3.9 mmol/L (3.5-5.1)
[2019-12-30 23:51] VITALS: BP 156/98
[2019-12-31 03:31] VITALS: BP 158/86
[2019-12-31 04:42] LABS: CALCIUM 8.7 mg/dL (8.5-10.1); CREATININE 1.6 mg/dL (0.7-1.3); GFR 43.9; MAGNESIUM 2.1 mg/dL (1.8-2.4); POTASSIUM 3.6 mmol/L (3.5-5.1)
[2019-12-31 04:45] LABS: ALBUMIN 3.4 g/dL (3.4-5.0); CREATININE 1.8 mg/dL (0.7-1.3); GFR 38.3; PHOSPHORUS 4.6 mg/dL (2.6-4.7); POTASSIUM 4.3 mmol/L (3.5-5.1)
[2019-12-31 07:00] VITALS: BP 164/79
--- NOTE | 2019-12-31 08:59 | PDOC ---
PROGRESS NOTES Chief Complaint Chief Complaint IMPRESSION Acute diastolic heart failure ON ECHO //ejection fraction is severely impaired. Ejection Fraction is 25%. HTN urgency, remains labile Arrhythmia: appears to be atrial flutter with RVR COPD CKD3: unclear baseline Cr Hx of ANALI; no CPAP use Morbid obesity Remote hx of PAFIB Chronic Venous insufficiency HYPERLIPIDEMIA Cardiomyopathy: EF at 25% possibly tachy induced CM 12/31 run of a-flutter last night, now on iv amiodarone History of Present Illness History of Present Illness 12/31 Patient was seen and examined in cvc Chart including recent doppler and V/Q study were reviewed Progress was d/w RN Patient on IV diuretic, inc slowly today cont iv amiodarone Vitals Vitals Vital Signs Date Time Temp Pulse Resp B/P (MAP) Pulse Ox O2 Delivery O2 Flow Rate FiO2 12/31/19 07:00 97.5 99 20 164/79 (107) 96 Room Air 97.5 Physical Exam General: Alert, Oriented X3, Cooperative, No acute distress Heart: Other ( irregularly irregular) Lungs: Clear Abdomen: Normal bowel sounds Extremities: No clubbing, No cyanosis, No edema, Other (2+ bilateral LE pitting edema) Skin: No breakdown, No significant lesion Labs LABS Laboratory Tests Test 12/30/19 23:03 12/31/19 03:45 Sodium Level 143 mmol/L (136-145) 145 mmol/L (136-145) Potassium Level 3.9 mmol/L (3.5-5.1) 4.3 mmol/L (3.5-5.1) Chloride Level 106 mmol/L (98-107) 106 mmol/L (98-107) Carbon Dioxide Level 26 mmol/L (21-32) 30 mmol/L (21-32) Anion Gap 11 (6-14) 9 (6-14) Blood Urea Nitrogen 21 mg/dL (8-26) 19 mg/dL (8-26) Creatinine 1.7 mg/dL (0.7-1.3) 1.8 mg/dL (0.7-1.3) Estimated GFR (Cockcroft-Gault) 40.9 38.3 Glucose Level 115 mg/dL (70-99) 98 mg/dL (70-99) Calcium Level 8.9 mg/dL (8.5-10.1) 9.0 mg/dL (8.5-10.1) Magnesium Level 1.9 mg/dL (1.8-2.4) 2.1 mg/dL (1.8-2.4) Phosphorus Level 4.6 mg/dL (2.6-4.7) Albumin 3.4 g/dL (3.4-5.0) Assessment and Plan Assessmemt and Plan Problems Medical Problems: (1) Atrial flutter Status: Acute (2) Cardiogenic pulmonary edema Status: Acute Comment Review of Relevant I have reviewed the following items shaheen (where applicable) has been applied. Labs Laboratory Tests Test 12/30/19 03:45 12/30/19 23:03 12/31/19 03:45 White Blood Count 11.6 x10^3/uL (4.0-11.0) Red Blood Count 5.12 x10^6/uL (4.30-5.70) Hemoglobin 14.4 g/dL (13.0-17.5) Hematocrit 43.6 % (39.0-53.0) Mean Corpuscular Volume 85 fL (79-100) Mean Corpuscular Hemoglobin 28 pg (25-35) Mean Corpuscular Hemoglobin Concent 33 g/dL (31-37) Red Cell Distribution Width 14.6 % (11.5-14.5) Platelet Count 253 x10^3/uL (140-400) Sodium Level 143 mmol/L (136-145) 145 mmol/L (136-145) Potassium Level 3.9 mmol/L (3.5-5.1) 4.3 mmol/L (3.5-5.1) Chloride Level 106 mmol/L (98-107) 106 mmol/L (98-107) Carbon Dioxide Level 26 mmol/L (21-32) 30 mmol/L (21-32) Anion Gap 11 (6-14) 9 (6-14) Blood Urea Nitrogen 21 mg/dL (8-26) 19 mg/dL (8-26) Creatinine 1.7 mg/dL (0.7-1.3) 1.8 mg/dL (0.7-1.3) Estimated GFR (Cockcroft-Gault) 40.9 38.3 Glucose Level 115 mg/dL (70-99) 98 mg/dL (70-99) Calcium Level 8.9 mg/dL (8.5-10.1) 9.0 mg/dL (8.5-10.1) Magnesium Level 1.9 mg/dL (1.8-2.4) 2.1 mg/dL (1.8-2.4) Phosphorus Level 4.6 mg/dL (2.6-4.7) Albumin 3.4 g/dL (3.4-5.0) Laboratory Tests Test 12/30/19 23:03 12/31/19 03:45 Sodium Level 143 mmol/L (136-145) 145 mmol/L (136-145) Potassium Level 3.9 mmol/L (3.5-5.1) 4.3 mmol/L (3.5-5.1) Chloride Level 106 mmol/L (98-107) 106 mmol/L (98-107) Carbon Dioxide Level 26 mmol/L (21-32) 30 mmol/L (21-32) Anion Gap 11 (6-14) 9 (6-14) Blood Urea Nitrogen 21 mg/dL (8-26) 19 mg/dL (8-26) Creatinine 1.7 mg/dL (0.7-1.3) 1.8 mg/dL (0.7-1.3) Estimated GFR (Cockcroft-Gault) 40.9 38.3 Glucose Level 115 mg/dL (70-99) 98 mg/dL (70-99) Calcium Level 8.9 mg/dL (8.5-10.1) 9.0 mg/dL (8.5-10.1) Magnesium Level 1.9 mg/dL (1.8-2.4) 2.1 mg/dL (1.8-2.4) Phosphorus Level 4.6 mg/dL (2.6-4.7) Albumin 3.4 g/dL (3.4-5.0) Medications Current Medications Furosemide (Lasix) 40 mg 1X ONCE IVP Last administered on 12/26/19at 11:36; Start 12/26/19 at 11:00; Stop 12/26/19 at 11:03; Status DC Albuterol/ Ipratropium (Duoneb) 3 ml 1X ONCE NEB Last administered on 12/26/19at 11:16; Start 12/26/19 at 11:00; Stop 12/26/19 at 11:03; Status DC Metoprolol Tartrate (Lopressor Vial) 5 mg 1X ONCE IVP ; Start 12/26/19 at 11:15; Stop 12/26/19 at 11:07; Status DC Metoprolol Tartrate (Lopressor Vial) 5 mg 1X ONCE IVP Last administered on 12/26/19at 11:41; Start 12/26/19 at 11:45; Stop 12/26/19 at 11:46; Status DC Azithromycin 250 ml @ 250 mls/hr 1X ONCE IV Last administered on 12/26/19at 12:16; Start 12/26/19 at 11:45; Stop 12/26/19 at 12:44; Status DC Ceftriaxone Sodium (Rocephin) 1 gm 1X ONCE IVP Last administered on 12/26/19at 12:16; Start 12/26/19 at 11:45; Stop 12/26/19 at 11:46; Status DC Digoxin (Lanoxin) 500 mcg 1X ONCE IV Last administered on 12/26/19at 13:23; Start 12/26/19 at 13:15; Stop 12/26/19 at 13:16; Status DC Aspirin (Ecotrin) 325 mg 1X ONCE PO Last administered on 12/26/19at 13:35; Start 12/26/19 at 13:30; Stop 12/26/19 at 13:31; Status DC Ondansetron HCl (Zofran) 4 mg PRN Q4HRS PRN IV NAUSEA/VOMITING; Start 12/26/19 at 15:15 Acetaminophen (Tylenol) 650 mg PRN Q4HRS PRN PO TEMP OVER 100.4F OR MILD PAIN; Start 12/26/19 at 15:15 Docusate Sodium (Colace) 100 mg PRN BID PRN PO CONSTIPATION; Start 12/26/19 at 15:15 Albuterol Sulfate (Ventolin Neb Soln) 2.5 mg PRN Q4HRS PRN NEB SHORTNESS OF BREATH; Start 12/26/19 at 15:15 Guaifenesin (Robitussin) 200 mg PRN Q4HRS PRN PO COUGH; Start 12/26/19 at 15:15 Enoxaparin Sodium (Lovenox 40mg Syringe) 40 mg Q24H SQ Last administered on 12/26/19at 22:03; Start 12/26/19 at 21:00; Stop 12/27/19 at 11:34; Status DC Atorvastatin Calcium (Lipitor) 20 mg HS PO Last administered on 12/30/19at 21:12; Start 12/26/19 at 21:00 Amlodipine Besylate (Norvasc) 5 mg DAILY PO ; Start 12/26/19 at 17:00; Stop 12/26/19 at 17:12; Status DC Carvedilol (Coreg) 25 mg BIDWMEALS PO ; Start 12/26/19 at 17:00; Stop 12/26/19 at 17:12; Status DC Losartan Potassium (Cozaar) 50 mg DAILY PO ; Start 12/26/19 at 17:00; Stop 12/26/19 at 17:12; Status DC Bumetanide (Bumex) 1 mg BID92 IV ; Start 12/26/19 at 15:15; Stop 12/26/19 at 17:14; Status DC Metoprolol Tartrate (Lopressor) 25 mg Q6HRS PO Last administered on 12/29/19at 11:41; Start 12/26/19 at 18:00; Stop 12/29/19 at 12:12; Status DC Bumetanide (Bumex) 1 mg DAILY IV Last administered on 12/30/19at 07:50; Start 12/27/19 at 09:00; Stop 12/30/19 at 13:00; Status DC Perflutren Protein Type A Microsphe (Optison) 0.66 mg STK-MED ONCE IV ; Start 12/27/19 at 08:02; Stop 12/27/19 at 08:02; Status DC Diltiazem HCl 125 mg/Sodium Chloride 125 ml @ 5 mls/hr CONT PRN IV SEE I/O RECORD Last administered on 12/28/19at 02:33; Start 12/27/19 at 09:45; Stop 12/29/19 at 10:18; Status DC Digoxin (Lanoxin) 250 mcg 1X ONCE IV Last administered on 12/27/19at 09:58; Start 12/27/19 at 09:45; Stop 12/27/19 at 09:46; Status DC Heparin Sodium/ Dextrose 250 ml @ 20 mls/hr CONT PRN IV PER PROTOCOL Last administered on 12/27/19at 23:42; Start 12/27/19 at 11:30; Stop 12/29/19 at 10:17; Status DC Heparin Sodium (Porcine) (Heparin Sodium) 4,300 unit PRN Q6HRS PRN IV FOR UFH LEVEL LESS THAN 0.2; Start 12/27/19 at 11:30; Stop 12/29/19 at 10:19; Status DC Info (Anti-Coagulation Monitoring By Pharmacy) 1 each PRN DAILY PRN MC SEE COMMENTS Last administered on 12/28/19at 08:10; Start 12/27/19 at 15:30 Ringer's Solution 1,000 ml @ 50 mls/hr Q20H IV ; Start 12/28/19 at 07:00; Stop 12/28/19 at 18:59; Status DC Sodium Chloride (Normal Saline Flush) 10 ml QSHIFT PRN IV AFTER MEDS AND BLOOD DRAWS; Start 12/27/19 at 17:00 Hydralazine HCl (Apresoline Inj) 10 mg PRN Q4HRS PRN IVP ELEVATED BP, SEE COMMENTS Last administered on 12/29/19at 20:12; Start 12/27/19 at 22:15 Lidocaine HCl (Viscous Lidocaine) 15 ml 1X ONCE SWSW ; Start 12/28/19 at 07:00; Stop 12/28/19 at 07:07; Status DC Lidocaine HCl (Xylocaine 2% Topical 30gm Tube) 1 adan 1X ONCE TP ; Start 12/28/19 at 07:00; Stop 12/28/19 at 07:07; Status DC Benzocaine (Hurricaine One) 2 spray 1X ONCE MM ; Start 12/28/19 at 07:00; Stop 12/28/19 at 07:07; Status DC Diltiazem HCl (Cardizem 24hr Cd) 180 mg DAILY PO Last administered on 12/28/19at 09:17; Start 12/28/19 at 09:00; Stop 12/29/19 at 10:18; Status DC Apixaban (Eliquis) 5 mg BID PO Last administered on 12/30/19at 21:12; Start 12/29/19 at 09:00 Apixaban (Eliquis) 5 mg 1X ONCE PO Last administered on 12/28/19at 15:15; Start 12/28/19 at 15:15; Stop 12/28/19 at 15:16; Status DC Apixaban (Eliquis) 5 mg 1X ONCE PO Last administered on 12/28/19at 23:40; St art 12/28/19 at 23:00; Stop 12/28/19 at 23:01; Status DC Diltiazem HCl (Cardizem 24hr Cd) 120 mg 1X ONCE PO ; Start 12/28/19 at 17:15; Stop 12/28/19 at 17:16; Status DC Diltiazem HCl (Cardizem 24hr Cd) 240 mg DAILY PO Last administered on 12/30/19at 07:50; Start 12/29/19 at 09:00 Diltiazem HCl (Cardizem 24hr Cd) 120 mg 1X ONCE PO Last administered on 12/28/19at 17:36; Start 12/28/19 at 17:30; Stop 12/28/19 at 17:31; Status DC Metoprolol Tartrate (Lopressor) 75 mg BID PO Last administered on 12/30/19at 0 7:49; Start 12/29/19 at 21:00; Stop 12/30/19 at 12:06; Status DC Diltiazem HCl (Cardizem 24hr Cd) 120 mg 1X ONCE PO Last administered on 12/29/19at 17:02; Start 12/29/19 at 17:30; Stop 12/29/19 at 17:31; Status DC Metoprolol Tartrate (Lopressor) 100 mg BID PO Last administered on 12/30/19at 21:12; Start 12/30/19 at 21:00 Lisinopril (Prinivil) 20 mg BID PO Last administered on 12/30/19at 21:12; Start 12/30/19 at 12:15 Furosemide (Lasix) 40 mg 1X ONCE IVP Last administered on 12/30/19at 13:21; Start 12/30/19 at 13:15; Stop 12/30/19 at 13:16; Status DC Furosemide (Lasix) 40 mg DAILY PO ; Start 12/31/19 at 09:00 Amiodarone HCl 450 mg/Dextrose 259 ml @ 0 mls/hr CONT PRN IV SEE I/O RECORD Last administered on 12/30/19at 23:12; Start 12/30/19 at 23:00 Amiodarone HCl 150 mg/Dextrose 103 ml @ 618 mls/hr 1X ONCE IV Last administered on 12/30/19at 23:12; Start 12/30/19 at 23:00; Stop 12/30/19 at 23:09; Status DC Active Scripts Active Reported Amlodipine-Valsartan 10-160 mg (Amlodipine/Valsartan) 1 Each Tablet 0.5 Tab PO DAILY 30 Days Atorvastatin Calcium 20 Mg Tablet 20 Mg PO HS Carvedilol 25 Mg Tablet 25 Mg PO BIDWMEALS Vitals/I & O Vital Sign - Last 24 Hours 12/30/19 12/30/19 12/30/19 12/30/19 11:00 12:21 15:00 19:45 Temp 97.9 97.9 97.6 97.9 97.9 97.6 Pulse 88 114 100 95 Resp 18 18 18 B/P (MAP) 153/95 (114) 153/95 157/93 (114) 165/81 (109) Pulse Ox 96 95 96 O2 Delivery Room Air Room Air Room Air 12/30/19 12/30/19 12/30/19 12/30/19 20:00 21:12 21:12 23:12 Pulse 95 95 95 B/P (MAP) 165/81 165/81 165/81 O2 Delivery Room Air 12/30/19 12/31/19 12/31/19 23:51 03:31 07:00 Temp 98.0 98.3 97.5 98.0 98.3 97.5 Pulse 73 70 99 Resp 16 16 20 B/P (MAP) 156/98 (117) 158/86 (110) 164/79 (107) Pulse Ox 95 96 96 O2 Delivery Room Air Room Air Room Air Intake and Output 12/30/19 12/30/19 12/31/19 15:00 23:00 07:00 Intake Total 240 ml 1270 ml Output Total 800 ml 500 ml 200 ml Balance -800 ml -260 ml 1070 ml ELIZABETH SCHAFFER MD Dec 31, 2019 08:59
[2019-12-31] MEDS: APIXABAN 5 MG TABLET. PO SCH ×2 (09:13→21:26)
[2019-12-31] MEDS: FUROSEMIDE 40 MG TABLET. PO SCH (09:14)
[2019-12-31] MEDS: METOPROLOL TART IMMED RELEASE 50 MG TABLET. PO SCH ×2 (09:14→21:25)
[2019-12-31] MEDS: LISINOPRIL 20 MG TABLET PO SCH ×2 (09:14→21:25)
[2019-12-31 11:00] VITALS: BP 167/94
--- NOTE | 2019-12-31 11:02 | NUR ---
SS following up with discharge planning. Pt is currently on room air. PT reported no skilled needs at this time. SS will continue to follow for discharge planning.
[2019-12-31] MEDS: ANTI-COAG MONITOR BY PHARMACY. MC PRN (11:17)
[2019-12-31 15:00] VITALS: BP 153/84
--- NOTE | 2019-12-31 17:36 | PDOC ---
PROGRESS NOTES Subjective Subjective Patient seen and examined Objective Objective Vital Signs Date Time Temp Pulse Resp B/P (MAP) Pulse Ox O2 Delivery O2 Flow Rate FiO2 12/31/19 15:00 98.3 71 20 153/84 (107) 95 Room Air 98.3 12/27/19 15:00 2.0 Intake and Output 12/31/19 07:00 Intake Total 1510 ml Output Total 1500 ml Balance 10 ml Intake Oral 1510 ml Output Urine Total 1500 ml Physical Exam Abdomen: Normal bowel sounds Heart: Regular rate General: No acute distress Lungs: Other (slightly decreased breath sounds) Assessment Assessment Problems Medical Problems: (1) Atrial flutter Status: Acute (2) Cardiogenic pulmonary edema Status: Acute 1. Acute systolic CHF: Continues to improve. Continue medical treatment. But mild LE elevated blood pressure today. We will mildly increased diuresis. 2. HTN urgency: also improved 3. Atrial flutter with RVR. Rate controlled. 4. COPD. no wheezing. 5. CKD3: Cr stable 6. Hx of ANALI; no CPAP use 7. Morbid obesity 8. Remote hx of PAFIB 9. Chronic Venous insufficiency 10. HLP 11. Cardiomyopathy: EF at 25% possibly tachy induced CM. with a 34 beat run of nonsustained ventricular tachycardia last night. Started on amiodarone with no further occurrences. We'll review with the patient. Tentatively schedule cardiac catheterization for tomorrow and arrange outpatient [facility]. Comment Review of Relevant I have reviewed the following items shaheen (where applicable) has been applied. Labs Laboratory Tests Test 12/30/19 03:45 12/30/19 23:03 12/31/19 03:45 White Blood Count 11.6 x10^3/uL (4.0-11.0) Red Blood Count 5.12 x10^6/uL (4.30-5.70) Hemoglobin 14.4 g/dL (13.0-17.5) Hematocrit 43.6 % (39.0-53.0) Mean Corpuscular Volume 85 fL (79-100) Mean Corpuscular Hemoglobin 28 pg (25-35) Mean Corpuscular Hemoglobin Concent 33 g/dL (31-37) Red Cell Distribution Width 14.6 % (11.5-14.5) Platelet Count 253 x10^3/uL (140-400) Sodium Level 143 mmol/L (136-145) 145 mmol/L (136-145) Potassium Level 3.9 mmol/L (3.5-5.1) 4.3 mmol/L (3.5-5.1) Chloride Level 106 mmol/L (98-107) 106 mmol/L (98-107) Carbon Dioxide Level 26 mmol/L (21-32) 30 mmol/L (21-32) Anion Gap 11 (6-14) 9 (6-14) Blood Urea Nitrogen 21 mg/dL (8-26) 19 mg/dL (8-26) Creatinine 1.7 mg/dL (0.7-1.3) 1.8 mg/dL (0.7-1.3) Estimated GFR (Cockcroft-Gault) 40.9 38.3 Glucose Level 115 mg/dL (70-99) 98 mg/dL (70-99) Calcium Level 8.9 mg/dL (8.5-10.1) 9.0 mg/dL (8.5-10.1) Magnesium Level 1.9 mg/dL (1.8-2.4) 2.1 mg/dL (1.8-2.4) Phosphorus Level 4.6 mg/dL (2.6-4.7) Albumin 3.4 g/dL (3.4-5.0) Laboratory Tests Test 12/30/19 23:03 12/31/19 03:45 Sodium Level 143 mmol/L (136-145) 145 mmol/L (136-145) Potassium Level 3.9 mmol/L (3.5-5.1) 4.3 mmol/L (3.5-5.1) Chloride Level 106 mmol/L (98-107) 106 mmol/L (98-107) Carbon Dioxide Level 26 mmol/L (21-32) 30 mmol/L (21-32) Anion Gap 11 (6-14) 9 (6-14) Blood Urea Nitrogen 21 mg/dL (8-26) 19 mg/dL (8-26) Creatinine 1.7 mg/dL (0.7-1.3) 1.8 mg/dL (0.7-1.3) Estimated GFR (Cockcroft-Gault) 40.9 38.3 Glucose Level 115 mg/dL (70-99) 98 mg/dL (70-99) Calcium Level 8.9 mg/dL (8.5-10.1) 9.0 mg/dL (8.5-10.1) Magnesium Level 1.9 mg/dL (1.8-2.4) 2.1 mg/dL (1.8-2.4) Phosphorus Level 4.6 mg/dL (2.6-4.7) Albumin 3.4 g/dL (3.4-5.0) Medications Current Medications Furosemide (Lasix) 40 mg 1X ONCE IVP Last administered on 12/26/19at 11:36; Start 12/26/19 at 11:00; Stop 12/26/19 at 11:03; Status DC Albuterol/ Ipratropium (Duoneb) 3 ml 1X ONCE NEB Last administered on 12/26/19at 11:16; Start 12/26/19 at 11:00; Stop 12/26/19 at 11:03; Status DC Metoprolol Tartrate (Lopressor Vial) 5 mg 1X ONCE IVP ; Start 12/26/19 at 11:15; Stop 12/26/19 at 11:07; Status DC Metoprolol Tartrate (Lopressor Vial) 5 mg 1X ONCE IVP Last administered on 12/26/19at 11:41; Start 12/26/19 at 11:45; Stop 12/26/19 at 11:46; Status DC Azithromycin 250 ml @ 250 mls/hr 1X ONCE IV Last administered on 12/26/19at 12:16; Start 12/26/19 at 11:45; Stop 12/26/19 at 12:44; Status DC Ceftriaxone Sodium (Rocephin) 1 gm 1X ONCE IVP Last administered on 12/26/19at 12:16; Start 12/26/19 at 11:45; Stop 12/26/19 at 11:46; Status DC Digoxin (Lanoxin) 500 mcg 1X ONCE IV Last administered on 12/26/19at 13:23; Start 12/26/19 at 13:15; Stop 12/26/19 at 13:16; Status DC Aspirin (Ecotrin) 325 mg 1X ONCE PO Last administered on 12/26/19at 13:35; Start 12/26/19 at 13:30; Stop 12/26/19 at 13:31; Status DC Ondansetron HCl (Zofran) 4 mg PRN Q4HRS PRN IV NAUSEA/VOMITING; Start 12/26/19 at 15:15 Acetaminophen (Tylenol) 650 mg PRN Q4HRS PRN PO TEMP OVER 100.4F OR MILD PAIN; Start 12/26/19 at 15:15 Docusate Sodium (Colace) 100 mg PRN BID PRN PO CONSTIPATION; Start 12/26/19 at 15:15 Albuterol Sulfate (Ventolin Neb Soln) 2.5 mg PRN Q4HRS PRN NEB SHORTNESS OF BREATH; Start 12/26/19 at 15:15 Guaifenesin (Robitussin) 200 mg PRN Q4HRS PRN PO COUGH; Start 12/26/19 at 15:15 Enoxaparin Sodium (Lovenox 40mg Syringe) 40 mg Q24H SQ Last administered on 12/26/19at 22:03; Start 12/26/19 at 21:00; Stop 12/27/19 at 11:34; Status DC Atorvastatin Calcium (Lipitor) 20 mg HS PO Last administered on 12/30/19at 21:12; Start 12/26/19 at 21:00 Amlodipine Besylate (Norvasc) 5 mg DAILY PO ; Start 12/26/19 at 17:00; Stop 12/26/19 at 17:12; Status DC Carvedilol (Coreg) 25 mg BIDWMEALS PO ; Start 12/26/19 at 17:00; Stop 12/26/19 at 17:12; Status DC Losartan Potassium (Cozaar) 50 mg DAILY PO ; Start 12/26/19 at 17:00; Stop 12/26/19 at 17:12; Status DC Bumetanide (Bumex) 1 mg BID92 IV ; Start 12/26/19 at 15:15; Stop 12/26/19 at 17:14; Status DC Metoprolol Tartrate (Lopressor) 25 mg Q6HRS PO Last administered on 12/29/19at 11:41; Start 12/26/19 at 18:00; Stop 12/29/19 at 12:12; Status DC Bumetanide (Bumex) 1 mg DAILY IV Last administered on 12/30/19at 07:50; Start 12/27/19 at 09:00; Stop 12/30/19 at 13:00; Status DC Perflutren Protein Type A Microsphe (Optison) 0.66 mg STK-MED ONCE IV ; Start 12/27/19 at 08:02; Stop 12/27/19 at 08:02; Status DC Diltiazem HCl 125 mg/Sodium Chloride 125 ml @ 5 mls/hr CONT PRN IV SEE I/O RECORD Last administered on 12/28/19at 02:33; Start 12/27/19 at 09:45; Stop 12/29/19 at 10:18; Status DC Digoxin (Lanoxin) 250 mcg 1X ONCE IV Last administered on 12/27/19at 09:58; Start 12/27/19 at 09:45; Stop 12/27/19 at 09:46; Status DC Heparin Sodium/ Dextrose 250 ml @ 20 mls/hr CONT PRN IV PER PROTOCOL Last administered on 12/27/19at 23:42; Start 12/27/19 at 11:30; Stop 12/29/19 at 10:1 7; Status DC Heparin Sodium (Porcine) (Heparin Sodium) 4,300 unit PRN Q6HRS PRN IV FOR UFH LEVEL LESS THAN 0.2; Start 12/27/19 at 11:30; Stop 12/29/19 at 10:19; Status DC Info (Anti-Coagulation Monitoring By Pharmacy) 1 each PRN DAILY PRN MC SEE COMMENTS Last administered on 12/31/19at 11:17; Start 12/27/19 at 15:30 Ringer's Solution 1,000 ml @ 50 mls/hr Q20H IV ; Start 12/28/19 at 07:00; Stop 12/28/19 at 18:59; Status DC Sodium Chloride (Normal Saline Flush) 10 ml QSHIFT PRN IV AFTER MEDS AND BLOOD DRAWS; Start 12/27/19 at 17:00 Hydralazine HCl (Apresoline Inj) 10 mg PRN Q4HRS PRN IVP ELEVATED BP, SEE COMMENTS Last administered on 12/29/19at 20:12; Start 12/27/19 at 22:15 Lidocaine HCl (Viscous Lidocaine) 15 ml 1X ONCE SWSW ; Start 12/28/19 at 07:00; Stop 12/28/19 at 07:07; Status DC Lidocaine HCl (Xylocaine 2% Topical 30gm Tube) 1 adan 1X ONCE TP ; Start 12/28/19 at 07:00; Stop 12/28/19 at 07:07; Status DC Benzocaine (Hurricaine One) 2 spray 1X ONCE MM ; Start 12/28/19 at 07:00; Stop 12/28/19 at 07:07; Status DC Diltiazem HCl (Cardizem 24hr Cd) 180 mg DAILY PO Last administered on 12/28/19at 09:17; Start 12/28/19 at 09:00; Stop 12/29/19 at 10:18; Status DC Apixaban (Eliquis) 5 mg BID PO Last administered on 12/31/19at 09:13; Start 12/29/19 at 09:00 Apixaban (Eliquis) 5 mg 1X ONCE PO Last administered on 12/28/19at 15:15; Start 12/28/19 at 15:15; Stop 12/28/19 at 15:16; Status DC Apixaban (Eliquis) 5 mg 1X ONCE PO Last administered on 12/28/19at 23:40; Start 12/28/19 at 23:00; Stop 12/28/19 at 23:01; Status DC Diltiazem HCl (Cardizem 24hr Cd) 120 mg 1X ONCE PO ; Start 12/28/19 at 17:15; Stop 12/28/19 at 17:16; Status DC Diltiazem HCl (Cardizem 24hr Cd) 240 mg DAILY PO Last administered on 12/31/19at 09:13; Start 12/29/19 at 09:00 Diltiazem HCl (Cardizem 24hr Cd) 120 mg 1X ONCE PO Last administered on 12/28/19at 17:36; Start 12/28/19 at 17:30; Stop 12/28/19 at 17:31; Status DC Metoprolol Tartrate (Lopressor) 75 mg BID PO Last administered on 12/30/19at 07:49; Start 12/29/19 at 21:00; Stop 12/30/19 at 12:06; Status DC Diltiazem HCl (Cardizem 24hr Cd) 120 mg 1X ONCE PO Last administered on 12/29/19at 17:02; Start 12/29/19 at 17:30; Stop 12/29/19 at 17:31; Status DC Metoprolol Tartrate (Lopressor) 100 mg BID PO Last administered on 12/31/19at 0 9:14; Start 12/30/19 at 21:00 Lisinopril (Prinivil) 20 mg BID PO Last administered on 12/31/19at 09:14; Start 12/30/19 at 12:15 Furosemide (Lasix) 40 mg 1X ONCE IVP Last administered on 12/30/19at 13:21; Start 12/30/19 at 13:15; Stop 12/30/19 at 13:16; Status DC Furosemide (Lasix) 40 mg DAILY PO Last administered on 12/31/19at 09:14; Start 12/31/19 at 09:00 Amiodarone HCl 450 mg/Dextrose 259 ml @ 0 mls/hr CONT PRN IV SEE I/O RECORD Last administered on 12/30/19at 23:12; Start 12/30/19 at 23:00 Amiodarone HCl 150 mg/Dextrose 103 ml @ 618 mls/hr 1X ONCE IV Last administered on 12/30/19at 23:12; Start 12/30/19 at 23:00; Stop 12/30/19 at 23:09; Status DC Active Scripts Active Reported Amlodipine-Valsartan 10-160 mg (Amlodipine/Valsartan) 1 Each Tablet 0.5 Tab PO DAILY 30 Days Atorvastatin Calcium 20 Mg Tablet 20 Mg PO HS Carvedilol 25 Mg Tablet 25 Mg PO BIDWMEALS Vitals/I & O Vital Sign - Last 24 Hours 12/30/19 12/30/19 12/30/19 12/30/19 19:45 20:00 21:12 21:12 Temp 97.6 97.6 Pulse 95 95 95 Resp 18 B/P (MAP) 165/81 (109) 165/81 165/81 Pulse Ox 96 O2 Delivery Room Air Room Air 12/30/19 12/30/19 12/31/19 12/31/19 23:12 23:51 03:31 07:00 Temp 98.0 98.3 97.5 98.0 98.3 97.5 Pulse 95 73 70 99 Resp 16 16 20 B/P (MAP) 165/81 156/98 (117) 158/86 (110) 164/79 (107) Pulse Ox 95 96 96 O2 Delivery Room Air Room Air Room Air 12/31/19 12/31/19 12/31/19 12/31/19 08:00 09:13 09:14 09:14 Pulse 99 99 99 B/P (MAP) 164/79 164/79 164/79 O2 Delivery Room Air 12/31/19 12/31/19 11:00 15:00 Temp 98.1 98.3 98.1 98.3 Pulse 66 71 Resp 20 20 B/P (MAP) 167/94 (118) 153/84 (107) Pulse Ox 96 95 O2 Delivery Room Air Room Air Intake and Output 12/30/19 12/30/19 12/31/19 15:00 23:00 07:00 Intake Total 240 ml 1270 ml Output Total 800 ml 500 ml 200 ml Balance -800 ml -260 ml 1070 ml GRICELDA FLOWERS MD Dec 31, 2019 17:36
[2019-12-31 19:45] VITALS: BP 158/83
--- NOTE | 2019-12-31 19:46 | NUR ---
Dr. Quinn paged via phone to verify amiodarone gtt orders that reach 24hrs at 2300 tonight. Pt condition of afib/aflutter reviewed as well as pt being started on 240mg cardizem PO, lisinopril, and metoprolol 100 BID today, 12/31. Orders received for 200mg PO amiodarone daily to start tonight and stop the amio gtt one hour after PO administration.
[2019-12-31] MEDS ORDERED: AMIODARONE HCL 200 MG TABLET. PO ONE (21:00)
[2019-12-31] MEDS: ATORVASTATIN CALCIUM 20 MG TABLET PO SCH (21:25)
[2019-12-31 23:25] VITALS: BP 150/73
[2020-01-01 03:15] VITALS: BP 158/71
[2020-01-01 05:04] LABS: HEMOGLOBIN 14.3 g/dL (13.0-17.5); RED BLOOD COUNT 5.02 x10^6/uL (4.30-5.70); RED CELL DISTRIBUTION WIDTH 14.8 % (11.5-14.5); WHITE BLOOD COUNT 12.3 x10^3/uL (4.0-11.0)
[2020-01-01 05:16] LABS: CALCIUM 9.2 mg/dL (8.5-10.1); CREATININE 1.8 mg/dL (0.7-1.3); GFR 38.3; MAGNESIUM 2.3 mg/dL (1.8-2.4); POTASSIUM 3.8 mmol/L (3.5-5.1)
[2020-01-01 07:00] VITALS: BP 177/91
[2020-01-01] MEDS: APIXABAN 5 MG TABLET. PO SCH (09:00)
[2020-01-01] MEDS: FUROSEMIDE 40 MG TABLET. PO SCH (09:00)
[2020-01-01] MEDS: METOPROLOL TART IMMED RELEASE 50 MG TABLET. PO SCH ×2 (09:35→20:18)
[2020-01-01] MEDS: LISINOPRIL 20 MG TABLET PO SCH ×2 (09:36→20:17)
[2020-01-01] MEDS: AMIODARONE HCL 200 MG TABLET. PO SCH (09:36)
[2020-01-01 11:00] VITALS: BP 165/84
--- NOTE | 2020-01-01 11:06 | PDOC ---
PROGRESS NOTES Chief Complaint Chief Complaint IMPRESSION Acute diastolic heart failure ON ECHO //ejection fraction is severely impaired. Ejection Fraction is 25%. HTN urgency, remains labile Arrhythmia: appears to be atrial flutter with RVR COPD CKD3: unclear baseline Cr Hx of ANALI; no CPAP use Morbid obesity Remote hx of PAFIB Chronic Venous insufficiency HYPERLIPIDEMIA Cardiomyopathy: EF at 25% possibly tachy induced CM 34 beat run of nonsustained ventricular tachycardia 34 beat run of nonsustained ventricular tachycardia last night, now on iv amiodarone History of Present Illness History of Present Illness 01/01 Patient was seen and examined in cvc Chart including recent doppler and V/Q study were reviewed Progress was d/w RN cont iv amiodarone 34 beat run of nonsustained ventricular tachycardia 12/30 PM Vitals Vitals Vital Signs Date Time Temp Pulse Resp B/P (MAP) Pulse Ox O2 Delivery O2 Flow Rate FiO2 01/01/20 09:36 89 177/91 01/01/20 07:00 98.0 20 96 Room Air 98.0 Physical Exam General: Alert, Oriented X3, Cooperative, No acute distress Heart: Regular rate Lungs: Clear Abdomen: Normal bowel sounds Extremities: No clubbing, No cyanosis, No edema, Other (2+ bilateral LE pitting edema) Skin: No breakdown, No significant lesion Labs LABS Laboratory Tests Test 01/01/20 04:50 White Blood Count 12.3 x10^3/uL (4.0-11.0) Red Blood Count 5.02 x10^6/uL (4.30-5.70) Hemoglobin 14.3 g/dL (13.0-17.5) Hematocrit 43.0 % (39.0-53.0) Mean Corpuscular Volume 86 fL (79-100) Mean Corpuscular Hemoglobin 29 pg (25-35) Mean Corpuscular Hemoglobin Concent 33 g/dL (31-37) Red Cell Distribution Width 14.8 % (11.5-14.5) Platelet Count 236 x10^3/uL (140-400) Sodium Level 144 mmol/L (136-145) Potassium Level 3.8 mmol/L (3.5-5.1) Chloride Level 107 mmol/L (98-107) Carbon Dioxide Level 30 mmol/L (21-32) Anion Gap 7 (6-14) Blood Urea Nitrogen 22 mg/dL (8-26) Creatinine 1.8 mg/dL (0.7-1.3) Estimated GFR (Cockcroft-Gault) 38.3 Glucose Level 99 mg/dL (70-99) Calcium Level 9.2 mg/dL (8.5-10.1) Magnesium Level 2.3 mg/dL (1.8-2.4) Assessment and Plan Assessmemt and Plan Problems Medical Problems: (1) Atrial flutter Status: Acute (2) Cardiogenic pulmonary edema Status: Acute Comment Review of Relevant I have reviewed the following items shaheen (where applicable) has been applied. Labs Laboratory Tests Test 12/30/19 23:03 12/31/19 03:45 01/01/20 04:50 Sodium Level 143 mmol/L (136-145) 145 mmol/L (136-145) 144 mmol/L (136-145) Potassium Level 3.9 mmol/L (3.5-5.1) 4.3 mmol/L (3.5-5.1) 3.8 mmol/L (3.5-5.1) Chloride Level 106 mmol/L (98-107) 106 mmol/L (98-107) 107 mmol/L (98-107) Carbon Dioxide Level 26 mmol/L (21-32) 30 mmol/L (21-32) 30 mmol/L (21-32) Anion Gap 11 (6-14) 9 (6-14) 7 (6-14) Blood Urea Nitrogen 21 mg/dL (8-26) 19 mg/dL (8-26) 22 mg/dL (8-26) Creatinine 1.7 mg/dL (0.7-1.3) 1.8 mg/dL (0.7-1.3) 1.8 mg/dL (0.7-1.3) Estimated GFR (Cockcroft-Gault) 40.9 38.3 38.3 Glucose Level 115 mg/dL (70-99) 98 mg/dL (70-99) 99 mg/dL (70-99) Calcium Level 8.9 mg/dL (8.5-10.1) 9.0 mg/dL (8.5-10.1) 9.2 mg/dL (8.5-10.1) Magnesium Level 1.9 mg/dL (1.8-2.4) 2.1 mg/dL (1.8-2.4) 2.3 mg/dL (1.8-2.4) Phosphorus Level 4.6 mg/dL (2.6-4.7) Albumin 3.4 g/dL (3.4-5.0) White Blood Count 12.3 x10^3/uL (4.0-11.0) Red Blood Count 5.02 x10^6/uL (4.30-5.70) Hemoglobin 14.3 g/dL (13.0-17.5) Hematocrit 43.0 % (39.0-53.0) Mean Corpuscular Volume 86 fL (79-100) Mean Corpuscular Hemoglobin 29 pg (25-35) Mean Corpuscular Hemoglobin Concent 33 g/dL (31-37) Red Cell Distribution Width 14.8 % (11.5-14.5) Platelet Count 236 x10^3/uL (140-400) Laboratory Tests Test 01/01/20 04:50 White Blood Count 12.3 x10^3/uL (4.0-11.0) Red Blood Count 5.02 x10^6/uL (4.30-5.70) Hemoglobin 14.3 g/dL (13.0-17.5) Hematocrit 43.0 % (39.0-53.0) Mean Corpuscular Volume 86 fL (79-100) Mean Corpuscular Hemoglobin 29 pg (25-35) Mean Corpuscular Hemoglobin Concent 33 g/dL (31-37) Red Cell Distribution Width 14.8 % (11.5-14.5) Platelet Count 236 x10^3/uL (140-400) Sodium Level 144 mmol/L (136-145) Potassium Level 3.8 mmol/L (3.5-5.1) Chloride Level 107 mmol/L (98-107) Carbon Dioxide Level 30 mmol/L (21-32) Anion Gap 7 (6-14) Blood Urea Nitrogen 22 mg/dL (8-26) Creatinine 1.8 mg/dL (0.7-1.3) Estimated GFR (Cockcroft-Gault) 38.3 Glucose Level 99 mg/dL (70-99) Calcium Level 9.2 mg/dL (8.5-10.1) Magnesium Level 2.3 mg/dL (1.8-2.4) Medications Current Medications Furosemide (Lasix) 40 mg 1X ONCE IVP Last administered on 12/26/19at 11:36; Start 12/26/19 at 11:00; Stop 12/26/19 at 11:03; Status DC Albuterol/ Ipratropium (Duoneb) 3 ml 1X ONCE NEB Last administered on 12/26/19at 11:16; Start 12/26/19 at 11:00; Stop 12/26/19 at 11:03; Status DC Metoprolol Tartrate (Lopressor Vial) 5 mg 1X ONCE IVP ; Start 12/26/19 at 11:15; Stop 12/26/19 at 11:07; Status DC Metoprolol Tartrate (Lopressor Vial) 5 mg 1X ONCE IVP Last administered on 12/26/19at 11:41; Start 12/26/19 at 11:45; Stop 12/26/19 at 11:46; Status DC Azithromycin 250 ml @ 250 mls/hr 1X ONCE IV Last administered on 12/26/19at 12:16; Start 12/26/19 at 11:45; Stop 12/26/19 at 12:44; Status DC Ceftriaxone Sodium (Rocephin) 1 gm 1X ONCE IVP Last administered on 12/26/19at 12:16; Start 12/26/19 at 11:45; Stop 12/26/19 at 11:46; Status DC Digoxin (Lanoxin) 500 mcg 1X ONCE IV Last administered on 12/26/19at 13:23; Start 12/26/19 at 13:15; Stop 12/26/19 at 13:16; Status DC Aspirin (Ecotrin) 325 mg 1X ONCE PO Last administered on 12/26/19at 13:35; Start 12/26/19 at 13:30; Stop 12/26/19 at 13:31; Status DC Ondansetron HCl (Zofran) 4 mg PRN Q4HRS PRN IV NAUSEA/VOMITING; Start 12/26/19 at 15:15 Acetaminophen (Tylenol) 650 mg PRN Q4HRS PRN PO TEMP OVER 100.4F OR MILD PAIN; Start 12/26/19 at 15:15 Docusate Sodium (Colace) 100 mg PRN BID PRN PO CONSTIPATION; Start 12/26/19 at 15:15 Albuterol Sulfate (Ventolin Neb Soln) 2.5 mg PRN Q4HRS PRN NEB SHORTNESS OF BREATH; Start 12/26/19 at 15:15 Guaifenesin (Robitussin) 200 mg PRN Q4HRS PRN PO COUGH; Start 12/26/19 at 15:15 Enoxaparin Sodium (Lovenox 40mg Syringe) 40 mg Q24H SQ Last administered on 12/26/19at 22:03; Start 12/26/19 at 21:00; Stop 12/27/19 at 11:34; Status DC Atorvastatin Calcium (Lipitor) 20 mg HS PO Last administered on 12/31/19at 21:25; Start 12/26/19 at 21:00 Amlodipine Besylate (Norvasc) 5 mg DAILY PO ; Start 12/26/19 at 17:00; Stop 12/26/19 at 17:12; Status DC Carvedilol (Coreg) 25 mg BIDWMEALS PO ; Start 12/26/19 at 17:00; Stop 12/26/19 at 17:12; Status DC Losartan Potassium (Cozaar) 50 mg DAILY PO ; Start 12/26/19 at 17:00; Stop 12/26/19 at 17:12; Status DC Bumetanide (Bumex) 1 mg BID92 IV ; Start 12/26/19 at 15:15; Stop 12/26/19 at 17:14; Status DC Metoprolol Tartrate (Lopressor) 25 mg Q6HRS PO Last administered on 12/29/19at 11:41; Start 12/26/19 at 18:00; Stop 12/29/19 at 12:12; Status DC Bumetanide (Bumex) 1 mg DAILY IV Last administered on 12/30/19at 07:50; Start 12/27/19 at 09:00; Stop 12/30/19 at 13:00; Status DC Perflutren Protein Type A Microsphe (Optison) 0.66 mg STK-MED ONCE IV ; Start 12/27/19 at 08:02; Stop 12/27/19 at 08:02; Status DC Diltiazem HCl 125 mg/Sodium Chloride 125 ml @ 5 mls/hr CONT PRN IV SEE I/O RECORD Last administered on 12/28/19at 02:33; Start 12/27/19 at 09:45; Stop 12/29/19 at 10:18; Status DC Digoxin (Lanoxin) 250 mcg 1X ONCE IV Last administered on 12/27/19at 09:58; Start 12/27/19 at 09:45; Stop 12/27/19 at 09:46; Status DC Heparin Sodium/ Dextrose 250 ml @ 20 mls/hr CONT PRN IV PER PROTOCOL Last administered on 12/27/19at 23:42; Start 12/27/19 at 11:30; Stop 12/29/19 at 10:17; Status DC Heparin Sodium (Porcine) (Heparin Sodium) 4,300 unit PRN Q6HRS PRN IV FOR UFH LEVEL LESS THAN 0.2; Start 12/27/19 at 11:30; Stop 12/29/19 at 10:19; Status DC Info (Anti-Coagulation Monitoring By Pharmacy) 1 each PRN DAILY PRN MC SEE COMMENTS Last administered on 12/31/19at 11:17; Start 12/27/19 at 15:30 Ringer's Solution 1,000 ml @ 50 mls/hr Q20H IV ; Start 12/28/19 at 07:00; Stop 12/28/19 at 18:59; Status DC Sodium Chloride (Normal Saline Flush) 10 ml QSHIFT PRN IV AFTER MEDS AND BLOOD DRAWS; Start 12/27/19 at 17:00 Hydralazine HCl (Apresoline Inj) 10 mg PRN Q4HRS PRN IVP ELEVATED BP, SEE COMMENTS Last administered on 12/29/19at 20:12; Start 12/27/19 at 22:15 Lidocaine HCl (Viscous Lidocaine) 15 ml 1X ONCE SWSW ; Start 12/28/19 at 07:00; Stop 12/28/19 at 07:07; Status DC Lidocaine HCl (Xylocaine 2% Topical 30gm Tube) 1 adan 1X ONCE TP ; Start 12/28/19 at 07:00; Stop 12/28/19 at 07:07; Status DC Benzocaine (Hurricaine One) 2 spray 1X ONCE MM ; Start 12/28/19 at 07:00; Stop 12/28/19 at 07:07; Status DC Diltiazem HCl (Cardizem 24hr Cd) 180 mg DAILY PO Last administered on 12/28/19at 09:17; Start 12/28/19 at 09:00; Stop 12/29/19 at 10:18; Status DC Apixaban (Eliquis) 5 mg BID PO Last administered on 12/31/19at 21:26; Start 12/29/19 at 09:00 Apixaban (Eliquis) 5 mg 1X ONCE PO Last administered on 12/28/19at 15:15; Start 12/28/19 at 15:15; Stop 12/28/19 at 15:16; Status DC Apixaban (Eliquis) 5 mg 1X ONCE PO Last administered on 12/28/19at 23:40; Start 12/28/19 at 23:00; Stop 12/28/19 at 23:01; Status DC Diltiazem HCl (Cardizem 24hr Cd) 120 mg 1X ONCE PO ; Start 12/28/19 at 17:15; Stop 12/28/19 at 17:16; Status DC Diltiazem HCl (Cardizem 24hr Cd) 240 mg DAILY PO Last administered on 01/01/20at 09:35; Start 12/29/19 at 09:00 Diltiazem HCl (Cardizem 24hr Cd) 120 mg 1X ONCE PO Last administered on 12/28/19at 17:36; Start 12/28/19 at 17:30; Stop 12/28/19 at 17:31; Status DC Metoprolol Tartrate (Lopressor) 75 mg BID PO Last administered on 12/30/19at 07:49; Start 12/29/19 at 21:00; Stop 12/30/19 at 12:06; Status DC Diltiazem HCl (Cardizem 24hr Cd) 120 mg 1X ONCE PO Last administered on 12/29/19at 17:02; Start 12/29/19 at 17:30; Stop 12/29/19 at 17:31; Status DC Metoprolol Tartrate (Lopressor) 100 mg BID PO Last administered on 01/01/20at 09:35; Start 12/30/19 at 21:00 Lisinopril (Prinivil) 20 mg BID PO Last administered on 01/01/20at 09:36; Start 12/30/19 at 12:15 Furosemide (Lasix) 40 mg 1X ONCE IVP Last administered on 12/30/19at 13:21; Start 12/30/19 at 13:15; Stop 12/30/19 at 13:16; Status DC Furosemide (Lasix) 40 mg DAILY PO Last administered on 12/31/19at 09:14; Start 12/31/19 at 09:00 Amiodarone HCl 450 mg/Dextrose 259 ml @ 0 mls/hr CONT PRN IV SEE I/O RECORD Last administered on 12/30/19at 23:12; Start 12/30/19 at 23:00 Amiodarone HCl 150 mg/Dextrose 103 ml @ 618 mls/hr 1X ONCE IV Last administered on 12/30/19at 23:12; Start 12/30/19 at 23:00; Stop 12/30/19 at 23:09; Status DC Amiodarone HCl (Cordarone) 200 mg DAILY PO Last administered on 01/01/20at 09:36; Start 01/01/20 at 09:00 Amiodarone HCl (Cordarone) 200 mg 1X ONCE PO Last administered on 12/31/19at 21:24; Start 12/31/19 at 21:00; Stop 12/31/19 at 21:01; Status DC Active Scripts Active Reported Amlodipine-Valsartan 10-160 mg (Amlodipine/Valsartan) 1 Each Tablet 0.5 Tab PO DAILY 30 Days Atorvastatin Calcium 20 Mg Tablet 20 Mg PO HS Carvedilol 25 Mg Tablet 25 Mg PO BIDWMEALS Vitals/I & O Vital Sign - Last 24 Hours 12/31/19 12/31/19 12/31/19 12/31/19 15:00 19:45 20:00 21:24 Temp 98.3 98.1 98.3 98.1 Pulse 71 97 97 Resp 20 20 B/P (MAP) 153/84 (107) 158/83 (108) 158/83 Pulse Ox 95 96 O2 Delivery Room Air Room Air Room Air 12/31/19 12/31/19 12/31/19 01/01/20 21:25 21:25 23:25 03:15 Temp 97.3 97.8 97.3 97.8 Pulse 97 97 68 69 Resp 18 18 B/P (MAP) 158/83 158/83 150/73 (98) 158/71 (100) Pulse Ox 97 95 O2 Delivery Room Air Room Air 01/01/20 01/01/20 01/01/20 01/01/20 07:00 09:35 09:35 09:36 Temp 98.0 98.0 Pulse 89 89 89 89 Resp 20 B/P (MAP) 177/91 (119) 177/91 177/91 177/91 Pulse Ox 96 O2 Delivery Room Air 01/01/20 09:36 Pulse 89 B/P (MAP) 177/91 Intake and Output 12/31/19 12/31/19 01/01/20 15:00 23:00 07:00 Intake Total 450 ml 640 ml Output Total 625 ml 750 ml 425 ml Balance -625 ml -300 ml 215 ml ELIZABETH SCHAFFER MD Jan 01, 2020 11:06
[2020-01-01] MEDS ORDERED: IV NORMAL SALINE 1000ML BAG 1,000 ML IV ONE (11:45)
[2020-01-01 15:00] VITALS: BP 160/80
[2020-01-01] MEDS ORDERED: 0.9 % SODIUM CHLORIDE 10 ML DISP.SYRIN. IV PRN (16:45)
[2020-01-01 19:45] VITALS: BP 153/82
[2020-01-01] MEDS: ATORVASTATIN CALCIUM 20 MG TABLET PO SCH (20:17)
[2020-01-01 23:00] VITALS: BP 150/88
[2020-01-02] VITALS (14 sets, daily range): BP systolic 127–178; BP diastolic 60–81
[2020-01-02 05:27] LABS: BASO # 0.1 x10^3/uL (0.0-0.2); BASO % 1 % (0-3); EOS # 0.3 x10^3/uL (0.0-0.7); EOS % 3 % (0-3); HEMATOCRIT 39.6 % (39.0-53.0); LYMPH % 18 % (24-48); MEAN CORPUSCULAR HEMOGLOBIN 28 pg (25-35); MEAN CORPUSCULAR HGB CONC 33 g/dL (31-37); MEAN CORPUSCULAR VOLUME 86 fL (79-100); MONO # 1.2 x10^3/uL (0.0-1.1); MONO % 11 % (0-9); NEUT # 7.8 x10^3/uL (1.8-7.7); NEUT % 68 % (31-73); PLATELET COUNT 201 x10^3/uL (140-400); RED BLOOD COUNT 4.61 x10^6/uL (4.30-5.70); WHITE BLOOD COUNT 11.4 x10^3/uL (4.0-11.0)
[2020-01-02 05:51] LABS: CALCIUM 8.4 mg/dL (8.5-10.1); CREATININE 1.6 mg/dL (0.7-1.3); GFR 43.9; MAGNESIUM 2.2 mg/dL (1.8-2.4); POTASSIUM 3.9 mmol/L (3.5-5.1)
[2020-01-02] MEDS ORDERED: ONDANSETRON PF 4 MG/2 ML VIAL. IV PRN (07:00)
[2020-01-02] MEDS ORDERED: LIDOCAINE 2% TOPICAL JELLY 30GM TUBE. TP ONE (07:00)
[2020-01-02] MEDS ORDERED: HYDROmorphone 2 MG/ML VIAL IV PRN (07:00)
[2020-01-02] MEDS ORDERED: IV RINGERS,LACTATED 1000ML 1,000 ML IV SCH (07:00)
[2020-01-02] MEDS ORDERED: LIDOCAINE 2% VISCOUS 15 ML SOLUTION. SWSW ONE (07:00)
[2020-01-02] MEDS ORDERED: fentaNYL PF VIAL 100 MCG/2 ML VIAL IV PRN ×2 (07:00)
[2020-01-02] MEDS ORDERED: PROCHLORPERAZINE 10 MG/2 ML VIAL. IV PRN (07:00)
[2020-01-02] MEDS ORDERED: MORPHINE SULFATE 2 MG/ML VIAL. IV PRN (07:00)
[2020-01-02] MEDS ORDERED: BENZOCAINE ONE 20% MUCOSAL SPRAY. MM (07:00)
[2020-01-02] MEDS ORDERED: IV NORMAL SALINE 1000ML BAG 1,000 ML IV SCH (07:30)
[2020-01-02] MEDS: AMIODARONE HCL 200 MG TABLET. PO SCH (09:03)
[2020-01-02] MEDS: METOPROLOL TART IMMED RELEASE 50 MG TABLET. PO SCH ×2 (09:04→21:00)
[2020-01-02] MEDS: LISINOPRIL 20 MG TABLET PO SCH ×2 (09:04→21:55)
[2020-01-02] MEDS ORDERED: LIDOCAINE 1% PF 2 ML VIAL. ONE (10:43)
[2020-01-02] MEDS ORDERED: HEPARIN for ARTERIAL LINE 1,500 ML ONE (10:43)
[2020-01-02] MEDS ORDERED: IODIXANOL 320 MG/ML 100 ML VIAL. ONE ×2 (10:43→12:12)
[2020-01-02] MEDS ORDERED: MIDAZOLAM HCL/PF 5 MG/5 ML VIAL. ONE (10:58)
[2020-01-02] MEDS ORDERED: fentaNYL PF VIAL 100 MCG/2 ML VIAL ONE (10:58)
[2020-01-02] MEDS ORDERED: VERAPAMIL 5 MG/2 ML VIAL. ONE (10:58)
[2020-01-02] MEDS ORDERED: NITROGLYCERIN 200 MCG/2 ML SYRINGE FOR CATH/VASC LAB. ONE (10:58)
[2020-01-02] MEDS ORDERED: HEPARIN for IV BOLUS 10,000 UNIT/10 ML VIAL. ONE (10:58)
--- NOTE | 2020-01-02 11:06 | PDOC ---
PROGRESS NOTES Chief Complaint Chief Complaint IMPRESSION Acute diastolic heart failure ON ECHO //ejection fraction is severely impaired. Ejection Fraction is 25%. HTN urgency, remains labile Arrhythmia: appears to be atrial flutter with RVR COPD CKD3: unclear baseline Cr Hx of ANALI; no CPAP use Morbid obesity Remote hx of PAFIB Chronic Venous insufficiency HYPERLIPIDEMIA Cardiomyopathy: EF at 25% possibly tachy induced CM 34 beat run of nonsustained ventricular tachycardia 34 beat run of nonsustained ventricular tachycardia last night, now on iv amiodarone History of Present Illness History of Present Illness 01/01 Patient was seen and examined in cvc Chart including recent doppler and V/Q study were reviewed Progress was d/w RN cont iv amiodarone 34 beat run of nonsustained ventricular tachycardia 12/30 PM Vitals Vitals Vital Signs Date Time Temp Pulse Resp B/P (MAP) Pulse Ox O2 Delivery O2 Flow Rate FiO2 01/02/20 10:19 97.1 51 20 148/65 (92) 97 Room Air 97.1 Physical Exam General: Alert, Oriented X3, Cooperative, No acute distress Heart: Regular rate Lungs: Clear Abdomen: Normal bowel sounds Extremities: No clubbing, No cyanosis, No edema, Other (2+ bilateral LE pitting edema) Skin: No breakdown, No significant lesion Labs LABS Laboratory Tests Test 01/02/20 04:42 White Blood Count 11.4 x10^3/uL (4.0-11.0) Red Blood Count 4.61 x10^6/uL (4.30-5.70) Hemoglobin 13.0 g/dL (13.0-17.5) Hematocrit 39.6 % (39.0-53.0) Mean Corpuscular Volume 86 fL (79-100) Mean Corpuscular Hemoglobin 28 pg (25-35) Mean Corpuscular Hemoglobin Concent 33 g/dL (31-37) Red Cell Distribution Width 15.0 % (11.5-14.5) Platelet Count 201 x10^3/uL (140-400) Neutrophils (%) (Auto) 68 % (31-73) Lymphocytes (%) (Auto) 18 % (24-48) Monocytes (%) (Auto) 11 % (0-9) Eosinophils (%) (Auto) 3 % (0-3) Basophils (%) (Auto) 1 % (0-3) Neutrophils # (Auto) 7.8 x10^3/uL (1.8-7.7) Lymphocytes # (Auto) 2.0 x10^3/uL (1.0-4.8) Monocytes # (Auto) 1.2 x10^3/uL (0.0-1.1) Eosinophils # (Auto) 0.3 x10^3/uL (0.0-0.7) Basophils # (Auto) 0.1 x10^3/uL (0.0-0.2) Sodium Level 143 mmol/L (136-145) Potassium Level 3.9 mmol/L (3.5-5.1) Chloride Level 106 mmol/L (98-107) Carbon Dioxide Level 27 mmol/L (21-32) Anion Gap 10 (6-14) Blood Urea Nitrogen 25 mg/dL (8-26) Creatinine 1.6 mg/dL (0.7-1.3) Estimated GFR (Cockcroft-Gault) 43.9 Glucose Level 95 mg/dL (70-99) Calcium Level 8.4 mg/dL (8.5-10.1) Magnesium Level 2.2 mg/dL (1.8-2.4) Assessment and Plan Assessmemt and Plan Problems Medical Problems: (1) Atrial flutter Status: Acute (2) Cardiogenic pulmonary edema Status: Acute Comment Review of Relevant I have reviewed the following items shaheen (where applicable) has been applied. Labs Laboratory Tests Test 01/01/20 04:50 01/02/20 04:42 White Blood Count 12.3 x10^3/uL (4.0-11.0) 11.4 x10^3/uL (4.0-11.0) Red Blood Count 5.02 x10^6/uL (4.30-5.70) 4.61 x10^6/uL (4.30-5.70) Hemoglobin 14.3 g/dL (13.0-17.5) 13.0 g/dL (13.0-17.5) Hematocrit 43.0 % (39.0-53.0) 39.6 % (39.0-53.0) Mean Corpuscular Volume 86 fL (79-100) 86 fL (79-100) Mean Corpuscular Hemoglobin 29 pg (25-35) 28 pg (25-35) Mean Corpuscular Hemoglobin Concent 33 g/dL (31-37) 33 g/dL (31-37) Red Cell Distribution Width 14.8 % (11.5-14.5) 15.0 % (11.5-14.5) Platelet Count 236 x10^3/uL (140-400) 201 x10^3/uL (140-400) Sodium Level 144 mmol/L (136-145) 143 mmol/L (136-145) Potassium Level 3.8 mmol/L (3.5-5.1) 3.9 mmol/L (3.5-5.1) Chloride Level 107 mmol/L (98-107) 106 mmol/L (98-107) Carbon Dioxide Level 30 mmol/L (21-32) 27 mmol/L (21-32) Anion Gap 7 (6-14) 10 (6-14) Blood Urea Nitrogen 22 mg/dL (8-26) 25 mg/dL (8-26) Creatinine 1.8 mg/dL (0.7-1.3) 1.6 mg/dL (0.7-1.3) Estimated GFR (Cockcroft-Gault) 38.3 43.9 Glucose Level 99 mg/dL (70-99) 95 mg/dL (70-99) Calcium Level 9.2 mg/dL (8.5-10.1) 8.4 mg/dL (8.5-10.1) Magnesium Level 2.3 mg/dL (1.8-2.4) 2.2 mg/dL (1.8-2.4) Neutrophils (%) (Auto) 68 % (31-73) Lymphocytes (%) (Auto) 18 % (24-48) Monocytes (%) (Auto) 11 % (0-9) Eosinophils (%) (Auto) 3 % (0-3) Basophils (%) (Auto) 1 % (0-3) Neutrophils # (Auto) 7.8 x10^3/uL (1.8-7.7) Lymphocytes # (Auto) 2.0 x10^3/uL (1.0-4.8) Monocytes # (Auto) 1.2 x10^3/uL (0.0-1.1) Eosinophils # (Auto) 0.3 x10^3/uL (0.0-0.7) Basophils # (Auto) 0.1 x10^3/uL (0.0-0.2) Laboratory Tests Test 01/02/20 04:42 White Blood Count 11.4 x10^3/uL (4.0-11.0) Red Blood Count 4.61 x10^6/uL (4.30-5.70) Hemoglobin 13.0 g/dL (13.0-17.5) Hematocrit 39.6 % (39.0-53.0) Mean Corpuscular Volume 86 fL (79-100) Mean Corpuscular Hemoglobin 28 pg (25-35) Mean Corpuscular Hemoglobin Concent 33 g/dL (31-37) Red Cell Distribution Width 15.0 % (11.5-14.5) Platelet Count 201 x10^3/uL (140-400) Neutrophils (%) (Auto) 68 % (31-73) Lymphocytes (%) (Auto) 18 % (24-48) Monocytes (%) (Auto) 11 % (0-9) Eosinophils (%) (Auto) 3 % (0-3) Basophils (%) (Auto) 1 % (0-3) Neutrophils # (Auto) 7.8 x10^3/uL (1.8-7.7) Lymphocytes # (Auto) 2.0 x10^3/uL (1.0-4.8) Monocytes # (Auto) 1.2 x10^3/uL (0.0-1.1) Eosinophils # (Auto) 0.3 x10^3/uL (0.0-0.7) Basophils # (Auto) 0.1 x10^3/uL (0.0-0.2) Sodium Level 143 mmol/L (136-145) Potassium Level 3.9 mmol/L (3.5-5.1) Chloride Level 106 mmol/L (98-107) Carbon Dioxide Level 27 mmol/L (21-32) Anion Gap 10 (6-14) Blood Urea Nitrogen 25 mg/dL (8-26) Creatinine 1.6 mg/dL (0.7-1.3) Estimated GFR (Cockcroft-Gault) 43.9 Glucose Level 95 mg/dL (70-99) Calcium Level 8.4 mg/dL (8.5-10.1) Magnesium Level 2.2 mg/dL (1.8-2.4) Medications Current Medications Furosemide (Lasix) 40 mg 1X ONCE IVP Last administered on 12/26/19at 11:36; Start 12/26/19 at 11:00; Stop 12/26/19 at 11:03; Status DC Albuterol/ Ipratropium (Duoneb) 3 ml 1X ONCE NEB Last administered on 12/08 07/27at 11:16; Start 12/26/19 at 11:00; Stop 12/26/19 at 11:03; Status DC Metoprolol Tartrate (Lopressor Vial) 5 mg 1X ONCE IVP ; Start 12/26/19 at 11:15; Stop 12/26/19 at 11:07; Status DC Metoprolol Tartrate (Lopressor Vial) 5 mg 1X ONCE IVP Last administered on 12/26/19at 11:41; Start 12/26/19 at 11:45; Stop 12/26/19 at 11:46; Status DC Azithromycin 250 ml @ 250 mls/hr 1X ONCE IV Last administered on 12/26/19at 12:16; Start 12/26/19 at 11:45; Stop 12/26/19 at 12:44; Status DC Ceftriaxone Sodium (Rocephin) 1 gm 1X ONCE IVP Last administered on 12/26/19at 12:16; Start 12/26/19 at 11:45; Stop 12/26/19 at 11:46; Status DC Digoxin (Lanoxin) 500 mcg 1X ONCE IV Last administered on 12/26/19at 13:23; Start 12/26/19 at 13:15; Stop 12/26/19 at 13:16; Status DC Aspirin (Ecotrin) 325 mg 1X ONCE PO Last administered on 12/26/19at 13:35; Start 12/26/19 at 13:30; Stop 12/26/19 at 13:31; Status DC Ondansetron HCl (Zofran) 4 mg PRN Q4HRS PRN IV NAUSEA/VOMITING; Start 12/26/19 at 15:15 Acetaminophen (Tylenol) 650 mg PRN Q4HRS PRN PO TEMP OVER 100.4F OR MILD PAIN; Start 12/26/19 at 15:15 Docusate Sodium (Colace) 100 mg PRN BID PRN PO CONSTIPATION; Start 12/26/19 at 15:15 Albuterol Sulfate (Ventolin Neb Soln) 2.5 mg PRN Q4HRS PRN NEB SHORTNESS OF BREATH; Start 12/26/19 at 15:15 Guaifenesin (Robitussin) 200 mg PRN Q4HRS PRN PO COUGH; Start 12/26/19 at 15:15 Enoxaparin Sodium (Lovenox 40mg Syringe) 40 mg Q24H SQ Last administered on 12/26/19at 22:03; Start 12/26/19 at 21:00; Stop 12/27/19 at 11:34; Status DC Atorvastatin Calcium (Lipitor) 20 mg HS PO Last administered on 01/01/20at 20:17; Start 12/26/19 at 21:00 Amlodipine Besylate (Norvasc) 5 mg DAILY PO ; Start 12/26/19 at 17:00; Stop 12/26/19 at 17:12; Status DC Carvedilol (Coreg) 25 mg BIDWMEALS PO ; Start 12/26/19 at 17:00; Stop 12/26/19 at 17:12; Status DC Losartan Potassium (Cozaar) 50 mg DAILY PO ; Start 12/26/19 at 17:00; Stop 12/26/19 at 17:12; Status DC Bumetanide (Bumex) 1 mg BID92 IV ; Start 12/26/19 at 15:15; Stop 12/26/19 at 17:14; Status DC Metoprolol Tartrate (Lopressor) 25 mg Q6HRS PO Last administered on 12/29/19at 11:41; Start 12/26/19 at 18:00; Stop 12/29/19 at 12:12; Status DC Bumetanide (Bumex) 1 mg DAILY IV Last administered on 12/30/19at 07:50; Start 12/27/19 at 09:00; Stop 12/30/19 at 13:00; Status DC Perflutren Protein Type A Microsphe (Optison) 0.66 mg STK-MED ONCE IV ; Start 12/27/19 at 08:02; Stop 12/27/19 at 08:02; Status DC Diltiazem HCl 125 mg/Sodium Chloride 125 ml @ 5 mls/hr CONT PRN IV SEE I/O RECORD Last administered on 12/28/19at 02:33; Start 12/27/19 at 09:45; Stop 12/29/19 at 10:18; Status DC Digoxin (Lanoxin) 250 mcg 1X ONCE IV Last administered on 12/27/19at 09:58; Start 12/27/19 at 09:45; Stop 12/27/19 at 09:46; Status DC Heparin Sodium/ Dextrose 250 ml @ 20 mls/hr CONT PRN IV PER PROTOCOL Last administered on 12/27/19at 23:42; Start 12/27/19 at 11:30; Stop 12/29/19 at 10:17; Status DC Heparin Sodium (Porcine) (Heparin Sodium) 4,300 unit PRN Q6HRS PRN IV FOR UFH LEVEL LESS THAN 0.2; Start 12/27/19 at 11:30; Stop 12/29/19 at 10:19; Status DC Info (Anti-Coagulation Monitoring By Pharmacy) 1 each PRN DAILY PRN MC SEE COMMENTS Last administered on 12/31/19at 11:17; Start 12/27/19 at 15:30 Ringer's Solution 1,000 ml @ 50 mls/hr Q20H IV ; Start 12/28/19 at 07:00; Stop 12/28/19 at 18:59; Status DC Sodium Chloride (Normal Saline Flush) 10 ml QSHIFT PRN IV AFTER MEDS AND BLOOD DRAWS; Start 12/27/19 at 17:00 Hydralazine HCl (Apresoline Inj) 10 mg PRN Q4HRS PRN IVP ELEVATED BP, SEE COMMENTS Last administered on 12/29/19at 20:12; Start 12/27/19 at 22:15 Lidocaine HCl (Viscous Lidocaine) 15 ml 1X ONCE SWSW ; Start 12/28/19 at 07:00; Stop 12/28/19 at 07:07; Status DC Lidocaine HCl (Xylocaine 2% Topical 30gm Tube) 1 adan 1X ONCE TP ; Start 12/28/19 at 07:00; Stop 12/28/19 at 07:07; Status DC Benzocaine (Hurricaine One) 2 spray 1X ONCE MM ; Start 12/28/19 at 07:00; Stop 12/28/19 at 07:07; Status DC Diltiazem HCl (Cardizem 24hr Cd) 180 mg DAILY PO Last administered on 12/28/19at 09:17; Start 12/28/19 at 09:00; Stop 12/29/19 at 10:18; Status DC Apixaban (Eliquis) 5 mg BID PO Last administered on 12/31/19at 21:26; Start 12/29/19 at 09:00; Stop 01/01/20 at 18:07; Status DC Apixaban (Eliquis) 5 mg 1X ONCE PO Last administered on 12/28/19at 15:15; Start 12/28/19 at 15:15; Stop 12/28/19 at 15:16; Status DC Apixaban (Eliquis) 5 mg 1X ONCE PO Last administered on 12/28/19at 23:40; Start 12/28/19 at 23:00; Stop 12/28/19 at 23:01; Status DC Diltiazem HCl (Cardizem 24hr Cd) 120 mg 1X ONCE PO ; Start 12/28/19 at 17:15; Stop 12/28/19 at 17:16; Status DC Diltiazem HCl (Cardizem 24hr Cd) 240 mg DAILY PO Last administered on 01/02/20at 09:04; Start 12/29/19 at 09:00 Diltiazem HCl (Cardizem 24hr Cd) 120 mg 1X ONCE PO Last administered on 12/28/19at 17:36; Start 12/28/19 at 17:30; Stop 12/28/19 at 17:31; Status DC Metoprolol Tartrate (Lopressor) 75 mg BID PO Last administered on 12/30/19at 07:49; Start 12/29/19 at 21:00; Stop 12/30/19 at 12:06; Status DC Diltiazem HCl (Cardizem 24hr Cd) 120 mg 1X ONCE PO Last administered on 12/29/19at 17:02; Start 12/29/19 at 17:30; Stop 12/29/19 at 17:31; Status DC Metoprolol Tartrate (Lopressor) 100 mg BID PO Last administered on 01/02/20at 09:04; Start 12/30/19 at 21:00 Lisinopril (Prinivil) 20 mg BID PO Last administered on 01/02/20at 09:04; Start 12/30/19 at 12:15 Furosemide (Lasix) 40 mg 1X ONCE IVP Last administered on 12/30/19at 13:21; Start 12/30/19 at 13:15; Stop 12/30/19 at 13:16; Status DC Furosemide (Lasix) 40 mg DAILY PO Last administered on 12/31/19at 09:14; Start 12/31/19 at 09:00 Amiodarone HCl 450 mg/Dextrose 259 ml @ 0 mls/hr CONT PRN IV SEE I/O RECORD Last administered on 12/30/19at 23:12; Start 12/30/19 at 23:00 Amiodarone HCl 150 mg/Dextrose 103 ml @ 618 mls/hr 1X ONCE IV Last administered on 12/30/19at 23:12; Start 12/30/19 at 23:00; Stop 12/30/19 at 23:09; Status DC Amiodarone HCl (Cordarone) 200 mg DAILY PO Last administered on 01/02/20at 09:03; Start 01/01/20 at 09:00 Amiodarone HCl (Cordarone) 200 mg 1X ONCE PO Last administered on 12/31/19at 21:24; Start 12/31/19 at 21:00; Stop 12/31/19 at 21:01; Status DC Sodium Chloride 1,000 ml @ 60 mls/hr 1X ONCE IV Last administered on 01/01/20at 11:59; Start 01/01/20 at 11:45; Stop 01/02/20 at 04:24; Status DC Ondansetron HCl (Zofran) 4 mg PRN Q6HRS PRN IV NAUSEA/VOMITING; Start 01/02/20 at 07:00; Stop 01/02/20 at 21:00 Fentanyl Citrate (Fentanyl 2ml Vial) 25 mcg PRN Q5MIN PRN IV MILD PAIN 1-3; Start 01/02/20 at 07:00; Stop 01/02/20 at 21:00 Fentanyl Citrate (Fentanyl 2ml Vial) 50 mcg PRN Q5MIN PRN IV MODERATE TO SEVERE PAIN; Start 01/02/20 at 07:00; Stop 01/02/20 at 21:00 Morphine Sulfate (Morphine Sulfate) 1 mg PRN Q10MIN PRN IV SEVERE PAIN 7-10; Start 01/02/20 at 07:00; Stop 01/02/20 at 21:00 Ringer's Solution 1,000 ml @ 30 mls/hr Q24H IV ; Start 01/02/20 at 07:00; Stop 01/02/20 at 18:59 Hydromorphone HCl (Dilaudid) 0.5 mg PRN Q10MIN PRN IV SEV PAIN, Second choice; Start 01/02/20 at 07:00; Stop 01/02/20 at 21:00 Prochlorperazine Edisylate (Compazine) 5 mg PACU PRN PRN IV NAUSEA, MRX1; Start 01/02/20 at 07:00; Stop 01/02/20 at 21:00 Sodium Chloride (Normal Saline Flush) 10 ml QSHIFT PRN IV AFTER MEDS AND BLOOD DRAWS; Start 01/01/20 at 16:45 Sodium Chloride 1,000 ml @ 75 mls/hr [id number] IV Last administered on 01/02/20at 07:48; Start 01/02/20 at 07:30 Benzocaine (Hurricaine One) 2 spray 1X ONCE MM ; Start 01/02/20 at 07:00; Stop 01/02/20 at 07:04; Status DC Lidocaine HCl (Viscous Lidocaine) 15 ml 1X ONCE SWSW ; Start 01/02/20 at 07:00; Stop 01/02/20 at 07:04; Status DC Lidocaine HCl (Xylocaine 2% Topical 30gm Tube) 1 adan 1X ONCE TP ; Start 01/02/20 at 07:00; Stop 01/02/20 at 07:04; Status DC Iodixanol (Visipaque 320) 100 ml STK-MED ONCE .ROUTE ; Start 01/02/20 at 10:43; Stop 01/02/20 at 10:43; Status DC Lidocaine HCl (Xylocaine-Mpf 1% 2ml Vial) 2 ml STK-MED ONCE .ROUTE ; Start 01/02/20 at 10:43; Stop 01/02/20 at 10:43; Status DC Heparin Sodium/ Sodium Chloride 1,500 ml @ As Directed STK-MED ONCE .ROUTE ; Start 01/02/20 at 10:43; Stop 01/02/20 at 10:43; Status DC Fentanyl Citrate (Fentanyl 2ml Vial) 100 mcg STK-MED ONCE .ROUTE ; Start 01/02/20 at 10:58; Stop 01/02/20 at 10:58; Status DC Midazolam HCl (Versed) 5 mg STK-MED ONCE .ROUTE ; Start 01/02/20 at 10:58; Stop 01/02/20 at 10:58; Status DC Heparin Sodium (Porcine) (Heparin Sodium) 10,000 unit STK-MED ONCE .ROUTE ; Start 01/02/20 at 10:58; Stop 01/02/20 at 10:59; Status DC Verapamil HCl (Verapamil) 5 mg STK-MED ONCE .ROUTE ; Start 01/02/20 at 10:58; Stop 01/02/20 at 10:59; Status DC Nitroglycerin (Nitroglycerin) 200 mcg STK-MED ONCE .ROUTE ; Start 01/02/20 at 10 :58; Stop 01/02/20 at 10:59; Status DC Active Scripts Active Reported Amlodipine-Valsartan 10-160 mg (Amlodipine/Valsartan) 1 Each Tablet 0.5 Tab PO DAILY 30 Days Atorvastatin Calcium 20 Mg Tablet 20 Mg PO HS Carvedilol 25 Mg Tablet 25 Mg PO BIDWMEALS Vitals/I & O Vital Sign - Last 24 Hours 01/01/20 01/01/20 01/01/20 01/01/20 15:00 19:45 20:00 20:17 Temp 97.4 97.7 97.4 97.7 Pulse 57 60 64 Resp 22 18 B/P (MAP) 160/80 (106) 153/82 (105) 153/82 Pulse Ox 96 97 O2 Delivery Room Air Room Air Room Air 01/01/20 01/01/20 01/02/20 01/02/20 20:18 23:00 03:00 07:19 Temp 97.9 97.6 97.8 97.9 97.6 97.8 Pulse 64 56 52 56 Resp 18 20 20 B/P (MAP) 153/82 150/88 (108) 155/73 (100) 178/81 (113) Pulse Ox 95 96 94 O2 Delivery Room Air Room Air Room Air 01/02/20 01/02/20 01/02/20 01/02/20 09:03 09:04 09:04 09:04 Pulse 59 59 59 59 B/P (MAP) 178/81 178/81 178/81 178/81 01/02/20 10:19 Temp 97.1 97.1 Pulse 51 Resp 20 B/P (MAP) 148/65 (92) Pulse Ox 97 O2 Delivery Room Air Intake and Output 01/01/20 01/01/20 01/02/20 15:00 23:00 07:00 Intake Total 300 ml 477 ml Output Total 450 ml 300 ml Balance -150 ml 177 ml ELIZABETH SCHAFFER MD Jan 02, 2020 11:06
[2020-01-02] MEDS ORDERED: LIDOCAINE 1% PF 2 ML VIAL. INJ ONE (11:45)
[2020-01-02] MEDS ORDERED: IODIXANOL 320 MG/ML 100 ML VIAL. IART ONE (11:45)
[2020-01-02] MEDS ORDERED: HEPARIN for IV BOLUS 10,000 UNIT/10 ML VIAL. IART ONE (11:45)
[2020-01-02] MEDS ORDERED: fentaNYL PF VIAL 100 MCG/2 ML VIAL IV ONE (11:45)
[2020-01-02] MEDS ORDERED: MIDAZOLAM HCL/PF 5 MG/5 ML VIAL. IV ONE (11:45)
[2020-01-02] MEDS ORDERED: NITROGLYCERIN 200 MCG/2 ML SYRINGE FOR CATH/VASC LAB. IART ONE (11:45)
[2020-01-02] MEDS ORDERED: VERAPAMIL 5 MG/2 ML VIAL. IART ONE (11:45)
[2020-01-02] MEDS ORDERED: CONTRAST GIVEN. MC PRN (11:45)
--- NOTE | 2020-01-02 13:24 | CARD ---
MR#: [id number] Date of Study: 01/02/2020 Ordering Physician: CINTHYA DÍAZ, Referring Physician: CINTHYA DÍAZ, Tech: Susan Borges APPROVED REPORT Technologist: Susan Borges Nurse: Julia Rashid R.N. Procedure(s) performed: fl time: 2.4 mins dose: 69 gycm2 contrast: 30 ml moderate sedation: 32 mins LHC, Coronary angiography HISTORY The patient is a 64 year-old male with a history of : hypertension. INDICATION The indication(s) include : heart failure, EF 25% and NSVT. CS Clinical Frailty Scale [facility] Clinical Frailty Scale: Moderately Frail Heart Failure Heart Failure: Yes If Yes, Newly Diagnosed: No If Yes, HF Type: Diastolic Systolic If Yes, NYHA Class: Class III PROCEDURE NARRATIVE INFORMED CONSENT: After explaining the risks and benefits of the procedure and alternatives, informed consent was obtained. The patient was brought electively to the cardiac catheterization lab. A timeout was performed confi rming the patient's name, date of , procedure, and site of procedure. All necessary personnel w ere wearing the appropriate protective equipment and radiation monitor devices. (See nursing notes for medications administered). ACCESS: The right wrist was sterilely prepped and draped in the usual fashion. The right wrist was infiltrat ed with 1 mL of 2% lidocaine for subcutaneous anesthesia. A 6 [place] Terumo glide sheath was inserte d into the right radial artery without difficulty. CORONARY ANGIOGRAPHY: Right and left coronary angiography was performed using a 6Fr TIG 4.0 catheter. Left ventricular en d diastolic pressure was obtained with a TIG catheter and pullback was performed. All catheter excha nges and advancements were performed over a guidewire. CLOSURE: At case completion the right radial sheath was removed and a Terumo radial band was applied with 13 m l of air. COMPLICATIONS: The patient tolerated the procedure well and there were no immediate complications. FINDINGS: HEMODYNAMICS: LVEDP 23 mm Hg No gradient on LV to aortic pullback. AO: 128/78 LEFT VENTRICULOGRAM: Deferred due to CKD and known severe LV dysfunction. CORONARY ANGIOGRAPHY: LM is a large caliber vessel with normal angiographic appearance. LAD is a large caliber vessel with normal angiographic appearance. Ramus is a moderate caliber vessel with normal angiographic apeparance. LCx is a moderate caliber non-dominant vessel with normal angiographic appearance. OM1 is a moderate caliber vessel with normal angiographic appearance. RCA is a large caliber dominant vessel with normal angiographic appearance. RPDA and RPL are moderate caliber vessels with normal angiographic appearance. Conclusion 1. Mild acute on chronic decompensated systolic and diastolic HF. LVEDP 23 mm Hg 2. Normal angiographic appearance of the coronary arteries. Recommendations Aggressive Medical Therapy Signed by : Cinthya Díaz, Electronically Approved : 01/02/2020 13:24:30
[2020-01-02] MEDS: FUROSEMIDE 40 MG TABLET. PO SCH (14:13)
[2020-01-02] MEDS: ATORVASTATIN CALCIUM 20 MG TABLET PO SCH (21:55)
[2020-01-03 02:55] VITALS: BP 138/66
[2020-01-03 07:05] VITALS: BP 161/73
[2020-01-03] MEDS: AMIODARONE HCL 200 MG TABLET. PO SCH (09:05)
[2020-01-03] MEDS: FUROSEMIDE 40 MG TABLET. PO SCH (09:05)
[2020-01-03] MEDS: LISINOPRIL 20 MG TABLET PO SCH (09:06)
--- NOTE | 2020-01-03 10:05 | PDOC ---
PROGRESS NOTES Chief Complaint Chief Complaint DISCHARGE DX Acute diastolic heart failure ON ECHO //ejection fraction is severely impaired. Ejection Fraction is 25%. HTN urgency, remains labile Arrhythmia: atrial flutter with RVR COPD CKD3: unclear baseline Cr Hx of ANALI; no CPAP use Morbid obesity Remote hx of PAFIB Chronic Venous insufficiency HYPERLIPIDEMIA Cardiomyopathy: EF at 25% possibly tachy induced CM 34 beat run of nonsustained ventricular tachycardia LifeVest upon discharge F/u with Dr. Green as scheduled in 3 weeks. Encouraged weight loss. Will re-evaluate LVEF with outpatient echo to assess need for AICD for primary prevention of SCD. beat run of nonsustained ventricular tachycardia last night, now on iv amiodarone 01/03 D/C PLANNING 32 MIN History of Present Illness History of Present Illness 01/03 Patient was seen and examined in cvc Chart including recent doppler and V/Q study were reviewed Progress was d/w RN cont iv amiodarone 34 beat run of nonsustained ventricular tachycardia 12/30 PM LifeVest upon discharge F/u with Dr. Green as scheduled in 3 weeks. Encouraged weight loss. Will re-evaluate LVEF with outpatient echo to assess need for AICD for primary prevention of SCD. Vitals Vitals Vital Signs Date Time Temp Pulse Resp B/P (MAP) Pulse Ox O2 Delivery O2 Flow Rate FiO2 01/03/20 09:06 54 161/73 01/03/20 08:30 Room Air 01/03/20 07:05 97.8 18 98 97.8 01/02/20 12:29 2.0 Physical Exam General: Alert, Oriented X3, Cooperative, No acute distress Heart: Regular rate Lungs: Clear Abdomen: Normal bowel sounds Extremities: No clubbing, No cyanosis, No edema, Other (2+ bilateral LE pitting edema) Skin: No breakdown, No significant lesion Assessment and Plan Assessmemt and Plan Problems Medical Problems: (1) Atrial flutter Status: Acute (2) Cardiogenic pulmonary edema Status: Acute Comment Review of Relevant I have reviewed the following items shaheen (where applicable) has been applied. Labs Laboratory Tests Test 01/02/20 04:42 White Blood Count 11.4 x10^3/uL (4.0-11.0) Red Blood Count 4.61 x10^6/uL (4.30-5.70) Hemoglobin 13.0 g/dL (13.0-17.5) Hematocrit 39.6 % (39.0-53.0) Mean Corpuscular Volume 86 fL (79-100) Mean Corpuscular Hemoglobin 28 pg (25-35) Mean Corpuscular Hemoglobin Concent 33 g/dL (31-37) Red Cell Distribution Width 15.0 % (11.5-14.5) Platelet Count 201 x10^3/uL (140-400) Neutrophils (%) (Auto) 68 % (31-73) Lymphocytes (%) (Auto) 18 % (24-48) Monocytes (%) (Auto) 11 % (0-9) Eosinophils (%) (Auto) 3 % (0-3) Basophils (%) (Auto) 1 % (0-3) Neutrophils # (Auto) 7.8 x10^3/uL (1.8-7.7) Lymphocytes # (Auto) 2.0 x10^3/uL (1.0-4.8) Monocytes # (Auto) 1.2 x10^3/uL (0.0-1.1) Eosinophils # (Auto) 0.3 x10^3/uL (0.0-0.7) Basophils # (Auto) 0.1 x10^3/uL (0.0-0.2) Sodium Level 143 mmol/L (136-145) Potassium Level 3.9 mmol/L (3.5-5.1) Chloride Level 106 mmol/L (98-107) Carbon Dioxide Level 27 mmol/L (21-32) Anion Gap 10 (6-14) Blood Urea Nitrogen 25 mg/dL (8-26) Creatinine 1.6 mg/dL (0.7-1.3) Estimated GFR (Cockcroft-Gault) 43.9 Glucose Level 95 mg/dL (70-99) Calcium Level 8.4 mg/dL (8.5-10.1) Magnesium Level 2.2 mg/dL (1.8-2.4) Medications Current Medications Furosemide (Lasix) 40 mg 1X ONCE IVP Last administered on 12/26/19at 11:36; Start 12/26/19 at 11:00; Stop 12/26/19 at 11:03; Status DC Albuterol/ Ipratropium (Duoneb) 3 ml 1X ONCE NEB Last administered on 12/26/19at 11:16; Start 12/26/19 at 11:00; Stop 12/26/19 at 11:03; Status DC Metoprolol Tartrate (Lopressor Vial) 5 mg 1X ONCE IVP ; Start 12/26/19 at 11:15; Stop 12/26/19 at 11:07; Status DC Metoprolol Tartrate (Lopressor Vial) 5 mg 1X ONCE IVP Last administered on 12/26/19at 11:41; Start 12/26/19 at 11:45; Stop 12/26/19 at 11:46; Status DC Azithromycin 250 ml @ 250 mls/hr 1X ONCE IV Last administered on 12/26/19at 12:16; Start 12/26/19 at 11:45; Stop 12/26/19 at 12:44; Status DC Ceftriaxone Sodium (Rocephin) 1 gm 1X ONCE IVP Last administered on 12/26/19at 12:16; Start 12/26/19 at 11:45; Stop 12/26/19 at 11:46; Status DC Digoxin (Lanoxin) 500 mcg 1X ONCE IV Last administered on 12/26/19at 13:23; Start 12/26/19 at 13:15; Stop 12/26/19 at 13:16; Status DC Aspirin (Ecotrin) 325 mg 1X ONCE PO Last administered on 12/26/19at 13:35; Start 12/26/19 at 13:30; Stop 12/26/19 at 13:31; Status DC Ondansetron HCl (Zofran) 4 mg PRN Q4HRS PRN IV NAUSEA/VOMITING; Start 12/26/19 at 15:15 Acetaminophen (Tylenol) 650 mg PRN Q4HRS PRN PO TEMP OVER 100.4F OR MILD PAIN; Start 12/26/19 at 15:15 Docusate Sodium (Colace) 100 mg PRN BID PRN PO CONSTIPATION; Start 12/26/19 at 15:15 Albuterol Sulfate (Ventolin Neb Soln) 2.5 mg PRN Q4HRS PRN NEB SHORTNESS OF BREATH; Start 12/26/19 at 15:15 Guaifenesin (Robitussin) 200 mg PRN Q4HRS PRN PO COUGH; Start 12/26/19 at 15:15 Enoxaparin Sodium (Lovenox 40mg Syringe) 40 mg Q24H SQ Last administered on 12/26/19at 22:03; Start 12/26/19 at 21:00; Stop 12/27/19 at 11:34; Status DC Atorvastatin Calcium (Lipitor) 20 mg HS PO Last administered on 01/02/20at 21:55; Start 12/26/19 at 21:00 Amlodipine Besylate (Norvasc) 5 mg DAILY PO ; Start 12/26/19 at 17:00; Stop 12/26/19 at 17:12; Status DC Carvedilol (Coreg) 25 mg BIDWMEALS PO ; Start 12/26/19 at 17:00; Stop 12/26/19 at 17:12; Status DC Losartan Potassium (Cozaar) 50 mg DAILY PO ; Start 12/26/19 at 17:00; Stop 12/26/19 at 17:12; Status DC Bumetanide (Bumex) 1 mg BID92 IV ; Start 12/26/19 at 15:15; Stop 12/26/19 at 17:14; Status DC Metoprolol Tartrate (Lopressor) 25 mg Q6HRS PO Last administered on 12/29/19at 11:41; Start 12/26/19 at 18:00; Stop 12/29/19 at 12:12; Status DC Bumetanide (Bumex) 1 mg DAILY IV Last administered on 12/30/19at 07:50; Start 12/27/19 at 09:00; Stop 12/30/19 at 13:00; Status DC Perflutren Protein Type A Microsphe (Optison) 0.66 mg STK-MED ONCE IV ; Start 12/27/19 at 08:02; Stop 12/27/19 at 08:02; Status DC Diltiazem HCl 125 mg/Sodium Chloride 125 ml @ 5 mls/hr CONT PRN IV SEE I/O RECORD Last administered on 12/28/19at 02:33; Start 12/27/19 at 09:45; Stop 12/29/19 at 10:18; Status DC Digoxin (Lanoxin) 250 mcg 1X ONCE IV Last administered on 12/27/19at 09:58; Start 12/27/19 at 09:45; Stop 12/27/19 at 09:46; Status DC Heparin Sodium/ Dextrose 250 ml @ 20 mls/hr CONT PRN IV PER PROTOCOL Last administered on 12/27/19at 23:42; Start 12/27/19 at 11:30; Stop 12/29/19 at 10:17; Status DC Heparin Sodium (Porcine) (Heparin Sodium) 4,300 unit PRN Q6HRS PRN IV FOR UFH LEVEL LESS THAN 0.2; Start 12/27/19 at 11:30; Stop 12/29/19 at 10:19; Status DC Info (Anti-Coagulation Monitoring By Pharmacy) 1 each PRN DAILY PRN MC SEE COMMENTS Last administered on 12/31/19at 11:17; Start 12/27/19 at 15:30 Ringer's Solution 1,000 ml @ 50 mls/hr Q20H IV ; Start 12/28/19 at 07:00; Stop 12/28/19 at 18:59; Status DC Sodium Chloride (Normal Saline Flush) 10 ml QSHIFT PRN IV AFTER MEDS AND BLOOD DRAWS; Start 12/27/19 at 17:00 Hydralazine HCl (Apresoline Inj) 10 mg PRN Q4HRS PRN IVP ELEVATED BP, SEE COMMENTS Last administered on 12/29/19at 20:12; Start 12/27/19 at 22:15 Lidocaine HCl (Viscous Lidocaine) 15 ml 1X ONCE SWSW ; Start 12/28/19 at 07:00; Stop 12/28/19 at 07:07; Status DC Lidocaine HCl (Xylocaine 2% Topical 30gm Tube) 1 adan 1X ONCE TP ; Start 12/28/19 at 07:00; Stop 12/28/19 at 07:07; Status DC Benzocaine (Hurricaine One) 2 spray 1X ONCE MM ; Start 12/28/19 at 07:00; Stop 12/28/19 at 07:07; Status DC Diltiazem HCl (Cardizem 24hr Cd) 180 mg DAILY PO Last administered on 12/28/19at 09:17; Start 12/28/19 at 09:00; Stop 12/29/19 at 10:18; Status DC Apixaban (Eliquis) 5 mg BID PO Last administered on 12/31/19at 21:26; Start 12/29/19 at 09:00; Stop 01/01/20 at 18:07; Status DC Apixaban (Eliquis) 5 mg 1X ONCE PO Last administered on 12/28/19at 15:15; Start 12/28/19 at 15:15; Stop 12/28/19 at 15:16; Status DC Apixaban (Eliquis) 5 mg 1X ONCE PO Last administered on 12/28/19at 23:40; Start 12/28/19 at 23:00; Stop 12/28/19 at 23:01; Status DC Diltiazem HCl (Cardizem 24hr Cd) 120 mg 1X ONCE PO ; Start 12/28/19 at 17:15; Stop 12/28/19 at 17:16; Status DC Diltiazem HCl (Cardizem 24hr Cd) 240 mg DAILY PO Last administered on 01/02/20at 09:04; Start 12/29/19 at 09:00; Stop 01/02/20 at 19:37; Status DC Diltiazem HCl (Cardizem 24hr Cd) 120 mg 1X ONCE PO Last administered on 12/28/19at 17:36; Start 12/28/19 at 17:30; Stop 12/28/19 at 17:31; Status DC Metoprolol Tartrate (Lopressor) 75 mg BID PO Last administered on 12/30/19at 07:49; Start 12/29/19 at 21:00; Stop 12/30/19 at 12:06; Status DC Diltiazem HCl (Cardizem 24hr Cd) 120 mg 1X ONCE PO Last administered on 12/29/19at 17:02; Start 12/29/19 at 17:30; Stop 12/29/19 at 17:31; Status DC Metoprolol Tartrate (Lopressor) 100 mg BID PO Last administered on 01/02/20at 09:04; Start 12/30/19 at 21:00 Lisinopril (Prinivil) 20 mg BID PO Last administered on 01/03/20at 09:06; Start 12/30/19 at 12:15 Furosemide (Lasix) 40 mg 1X ONCE IVP Last administered on 12/30/19at 13:21; Start 12/30/19 at 13:15; Stop 12/30/19 at 13:16; Status DC Furosemide (Lasix) 40 mg DAILY PO Last administered on 01/03/20at 09:05; Start 12/31/19 at 09:00 Amiodarone HCl 450 mg/Dextrose 259 ml @ 0 mls/hr CONT PRN IV SEE I/O RECORD Last administered on 12/30/19at 23:12; Start 12/30/19 at 23:00 Amiodarone HCl 150 mg/Dextrose 103 ml @ 618 mls/hr 1X ONCE IV Last administered on 12/30/19at 23:12; Start 12/30/19 at 23:00; Stop 12/30/19 at 23:09; Status DC Amiodarone HCl (Cordarone) 200 mg DAILY PO Last administered on 01/03/20at 09:05; Start 01/01/20 at 09:00 Amiodarone HCl (Cordarone) 200 mg 1X ONCE PO Last administered on 12/31/19at 21:24; Start 12/31/19 at 21:00; Stop 12/31/19 at 21:01; Status DC Sodium Chloride 1,000 ml @ 60 mls/hr 1X ONCE IV Last administered on 01/01/20at 11:59; Start 01/01/20 at 11:45; Stop 01/02/20 at 04:24; Status DC Ondansetron HCl (Zofran) 4 mg PRN Q6HRS PRN IV NAUSEA/VOMITING; Start 01/02/20 at 07:00; Stop 01/02/20 at 21:00; Status DC Fentanyl Citrate (Fentanyl 2ml Vial) 25 mcg PRN Q5MIN PRN IV MILD PAIN 1-3; St art 01/02/20 at 07:00; Stop 01/02/20 at 19:39; Status DC Fentanyl Citrate (Fentanyl 2ml Vial) 50 mcg PRN Q5MIN PRN IV MODERATE TO SEVERE PAIN; Start 01/02/20 at 07:00; Stop 01/02/20 at 19:39; Status DC Morphine Sulfate (Morphine Sulfate) 1 mg PRN Q10MIN PRN IV SEVERE PAIN 7-10; Start 01/02/20 at 07:00; Stop 01/02/20 at 21:00; Status DC Ringer's Solution 1,000 ml @ 30 mls/hr Q24H IV ; Start 01/02/20 at 07:00; Stop 01/02/20 at 18:59; Status DC Hydromorphone HCl (Dilaudid) 0.5 mg PRN Q10MIN PRN IV SEV PAIN, Second choice; Start 01/02/20 at 07:00; Stop 01/02/20 at 19:39; Status DC Prochlorperazine Edisylate (Compazine) 5 mg PACU PRN PRN IV NAUSEA, MRX1; Start 01/02/20 at 07:00; Stop 01/02/20 at 21:00; Status DC Sodium Chloride (Normal Saline Flush) 10 ml QSHIFT PRN IV AFTER MEDS AND BLOOD DRAWS; Start 01/01/20 at 16:45 Sodium Chloride 1,000 ml @ 75 mls/hr [id number] IV Last administered on 01/02/20at 07:48; Start 01/02/20 at 07:30 Benzocaine (Hurricaine One) 2 spray 1X ONCE MM ; Start 01/02/20 at 07:00; Stop 01/02/20 at 07:04; Status DC Lidocaine HCl (Viscous Lidocaine) 15 ml 1X ONCE SWSW ; Start 01/02/20 at 07:00; Stop 01/02/20 at 07:04; Status DC Lidocaine HCl (Xylocaine 2% Topical 30gm Tube) 1 adan 1X ONCE TP ; Start 01/02/20 at 07:00; Stop 01/02/20 at 07:04; Status DC Iodixanol (Visipaque 320) 100 ml STK-MED ONCE .ROUTE ; Start 01/02/20 at 10:43; Stop 01/02/20 at 10:43; Status DC Lidocaine HCl (Xylocaine-Mpf 1% 2ml Vial) 2 ml STK-MED ONCE .ROUTE ; Start 01/02/20 at 10:43; Stop 01/02/20 at 10:43; Status DC Heparin Sodium/ Sodium Chloride 1,500 ml @ As Directed STK-MED ONCE .ROUTE ; Start 01/02/20 at 10:43; Stop 01/02/20 at 10:43; Status DC Fentanyl Citrate (Fentanyl 2ml Vial) 100 mcg STK-MED ONCE .ROUTE ; Start 01/02/20 at 10:58; Stop 01/02/20 at 10:58; Status DC Midazolam HCl (Versed) 5 mg STK-MED ONCE .ROUTE ; Start 01/02/20 at 10:58; Stop 01/02/20 at 10:58; Status DC Heparin Sodium (Porcine) (Heparin Sodium) 10,000 unit STK-MED ONCE .ROUTE ; Start 01/02/20 at 10:58; Stop 01/02/20 at 10:59; Status DC Verapamil HCl (Verapamil) 5 mg STK-MED ONCE .ROUTE ; Start 01/02/20 at 10:58; Stop 01/02/20 at 10:59; Status DC Nitroglycerin (Nitroglycerin) 200 mcg STK-MED ONCE .ROUTE ; Start 01/02/20 at 10:58; Stop 01/02/20 at 10:59; Status DC Nitroglycerin (Nitroglycerin) 200 mcg 1X ONCE IART Last administered on 01/02/20at 12:20; Start 01/02/20 at 11:45; Stop 01/02/20 at 11:46; Status DC Verapamil HCl (Verapamil) 2.5 mg 1X ONCE IART Last administered on 01/02/20at 12:21; Start 01/02/20 at 11:45; Stop 01/02/20 at 11:46; Status DC Heparin Sodium (Porcine) (Heparin Sodium) 2,500 unit 1X ONCE IART Last administered on 01/02/20at 12:22; Start 01/02/20 at 11:45; Stop 01/02/20 at 11:46; Status DC Heparin Sodium/ Sodium Chloride (HEPARIN for ARTERIAL LINE FLUSH) 1,000 unit 1X ONCE IART Last administered on 01/02/20at 12:19; Start 01/02/20 at 11:45; Stop 01/02/20 at 11:46; Status DC Heparin Sodium/ Sodium Chloride (HEPARIN for ARTERIAL LINE FLUSH) 1,000 unit 1X ONCE IART Last administered on 01/02/20at 12:19; Start 01/02/20 at 11:45; Stop 01/02/20 at 11:46; Status DC Midazolam HCl (Versed) 5 mg 1X ONCE IV Last administered on 01/02/20at 12:20; Start 01/02/20 at 11:45; Stop 01/02/20 at 11:46; Status DC Fentanyl Citrate (Fentanyl 2ml Vial) 100 mcg 1X ONCE IV Last administered on 01/02/20at 12:20; Start 01/02/20 at 11:45; Stop 01/02/20 at 11:46; Status DC Iodixanol (Visipaque 320) 100 ml 1X ONCE IART Last administered on 01/02/20at 12:19; Start 01/02/20 at 11:45; Stop 01/02/20 at 11:46; Status DC Lidocaine HCl (Xylocaine-Mpf 1% 2ml Vial) 2 ml 1X ONCE INJ Last administered on 01/02/20at 12:19; Start 01/02/20 at 11:45; Stop 01/02/20 at 11:46; Status DC Info (CONTRAST GIVEN -- Rx MONITORING) 1 each PRN DAILY PRN MC SEE COMMENTS; Start 01/02/20 at 11:45; Stop 01/04/20 at 11:44 Iodixanol (Visipaque 320) 100 ml STK-MED ONCE .ROUTE ; Start 01/02/20 at 12:12; Stop 01/02/20 at 12:13; Status DC Active Scripts Active Reported Amlodipine-Valsartan 10-160 mg (Amlodipine/Valsartan) 1 Each Tablet 0.5 Tab PO DAILY 30 Days Atorvastatin Calcium 20 Mg Tablet 20 Mg PO HS Carvedilol 25 Mg Tablet 25 Mg PO BIDWMEALS Vitals/I & O Vital Sign - Last 24 Hours 01/02/20 01/02/20 01/02/20 01/02/20 10:19 12:20 12:21 12:29 Temp 97.1 97.1 Pulse 51 52 54 Resp 20 18 23 B/P (MAP) 148/65 (92) 136/84 Pulse Ox 97 98 98 O2 Delivery Room Air Nasal Cannula Nasal Cannula O2 Flow Rate 2.0 2.0 01/02/20 01/02/20 01/02/20 01/02/20 12:45 12:50 13:00 13:14 Pulse 54 60 54 B/P (MAP) 139/70 (93) 135/68 (90) 131/60 (83) Pulse Ox 96 96 97 96 O2 Delivery Room Air Room Air Room Air Room Air 01/02/20 01/02/20 01/02/20 01/02/20 13:30 13:45 14:13 14:50 Temp 97.4 97.4 Pulse 52 52 55 52 Resp 20 B/P (MAP) 129/64 (85) 149/70 (96) 134/63 (86) 167/71 (103) Pulse Ox 95 96 96 96 O2 Delivery Room Air Room Air Room Air Room Air 01/02/20 01/02/20 01/02/20 01/02/20 18:00 19:31 20:05 21:00 Temp 97.3 97.3 Pulse 64 57 53 Resp 18 B/P (MAP) 150/70 (96) 132/60 (84) 132/60 Pulse Ox 96 96 O2 Delivery Room Air Room Air Room Air 01/02/20 01/02/20 01/03/20 01/03/20 21:55 23:13 02:55 07:05 Temp 98.0 98.2 97.8 98.0 98.2 97.8 Pulse 55 58 55 54 Resp 18 18 18 B/P (MAP) 132/60 127/60 (82) 138/66 (90) 161/73 (102) Pulse Ox 97 96 98 O2 Delivery Room Air Room Air Room Air 01/03/20 01/03/20 01/03/20 08:30 09:05 09:06 Pulse 54 54 B/P (MAP) 161/73 161/73 O2 Delivery Room Air Intake and Output 01/02/20 01/02/20 01/03/20 15:00 23:00 07:00 Intake Total 1300 ml Output Total 850 ml 800 ml Balance 450 ml -800 ml ELIZABETH SCHAFFER MD Jan 03, 2020 10:05
[2020-01-03 10:26] VITALS: BP 165/77
[2020-01-03] MEDS: METOPROLOL TART IMMED RELEASE 50 MG TABLET. PO SCH (11:08)
[2020-01-03] MEDS ORDERED: AMIO200T4 PO ×2 (13:02→13:34)
[2020-01-03] MEDS ORDERED: AMLO10TA4 PO ×2 (13:02→13:34)
[2020-01-03] MEDS ORDERED: FURO40TA4 PO ×2 (13:02→13:34)
[2020-01-03] MEDS ORDERED: LISI-130 PO ×2 (13:02→13:34)
[2020-01-03] MEDS ORDERED: METO-247 PO ×3 (13:02→14:43)
[2020-01-03] MEDS ORDERED: APIX5TAB PO ×3 (13:04→14:43)
--- NOTE | 2020-01-03 13:11 | PDOC ---
CARDIO Progress Notes Date and Time Date of Service 01/03/20 Time of Evaluation 1230 Subjective Subjective: No Chest Pain, No shortness of breath, No Palpitations Vitals Vitals Vital Signs Date Time Temp Pulse Resp B/P (MAP) Pulse Ox O2 Delivery O2 Flow Rate FiO2 01/03/20 11:08 60 165/77 01/03/20 10:26 97.8 18 98 Room Air 97.8 01/02/20 12:29 2.0 Weight Weight [ ] Input and Output Intake and Output Intake and Output 01/03/20 07:00 Intake Total 1300 ml Output Total 1650 ml Balance -350 ml Intake Oral 1300 ml Output Urine Total 1650 ml Physical Exam HEENT: Neck Supple W Full Motion Chest: Symmetric LUNGS: Other (diminsihed bases) Heart: RRR (SR) Abdomen: Soft N/T Extremities: Other (1+ bilateral LE edema) Neurology: alert, oriented, follow commands Assessment Assessment 1. Acute on chronic systolic CHF; improved with diuresis. Appears compensated 2. HTN urgency: now better controlled, but slightly elevated 3. Atrial flutter with RVR; converted back to SR with Amiodarone 4. COPD. stabe 5. CKD: Cr stable 6. Hx of ANALI; no CPAP use 7. Morbid obesity 8. Remote hx of PAFIB 9. Chronic Venous insufficiency 10. HLP 11. NICM; LVEF at 25%. most probably tachy induced. Cath without significant obstructive disease.. LifeVest has been arranged. 12. Arrhythmia; 34 beat run of VT; none further since. Recommendations Continue metoprolol/Amiodarone for rate/rhythm control Will decrease metoprolol and convert to long active as he is having some bradycardia now that he is back in SR Eliquis for stroke prophylaxis. Resume Norvasc for BP control ACEi, BB, Lasix for HF optimization LifeVest upon discharge F/u with Dr. Green as scheduled in 3 weeks. Encouraged weight loss. Will re-evaluate LVEF with outpatient echo to assess need for AICD for primary prevention of SCD. JORGITO BROWN APRN Jan 03, 2020 13:11
[2020-01-03 14:29] VITALS: BP 147/70
--- NOTE | 2020-01-03 14:40 | PDOC3 ---
Discharge Summary Date of Admission: Dec 26, 2019 Date of Discharge: Jan 03, 2020 Follow-Up: 3-5 days Admitting Diagnosis comment: DISCHARGE DX Acute diastolic heart failure ON ECHO //ejection fraction is severely impaired. Ejection Fraction is 25%. HTN urgency, remains labile Arrhythmia: atrial flutter with RVR COPD CKD3: unclear baseline Cr Hx of ANALI; no CPAP use Morbid obesity Remote hx of PAFIB Chronic Venous insufficiency HYPERLIPIDEMIA Cardiomyopathy: EF at 25% possibly tachy induced CM 34 beat run of nonsustained ventricular tachycardia [facility] upon discharge F/u with Dr. Green as scheduled in 3 weeks. Encouraged weight loss. Will re-evaluate LVEF with outpatient echo to assess need for AICD for primary prevention of SCD. 34 beat run of nonsustained ventricular tachycardia last night, now on iv amiodarone 01/03 D/C PLANNING 32 MIN History of Present Illness History of Present Illness 01/03 Patient was seen and examined in cvc Chart including recent doppler and V/Q study were reviewed Progress was d/w RN cont iv amiodarone 34 beat run of nonsustained ventricular tachycardia 2 PM [facility] upon discharge F/u with Dr. Green as scheduled in 3 weeks. Encouraged weight loss. Will re-evaluate LVEF with outpatient echo to assess need for AICD for primary prevention of SCD. Vitals Vitals Vital Signs Date Time Temp Pulse Resp B/P (MAP) Pulse Ox O2 Delivery O2 Flow Rate FiO2 01/03/20 09:06 54 161/73 01/03/20 08:30 Room Air 01/03/20 07:05 97.8 18 98 97.8 01/02/20 12:29 2.0 Physical Exam General: Alert, Oriented X3, Cooperative, No acute distress, DRESSED FOR HOME Heart: Regular rate Lungs: Clear Abdomen: Normal bowel sounds Extremities: No clubbing, No cyanosis, No edema, Skin: No breakdown, No significant lesion FINAL DIAGNOSIS Problems Medical Problems: (1) Atrial flutter Status: Acute (2) Cardiogenic pulmonary edema Status: Acute Brief Hospital Course Mr. Wright is a 64 old [sex] who presented with [CHF, NONISCHEMIC CARDIOMYOPATHY ] CONDITION AT DISCHARGE: Improved Discharge Medications Current Medications Furosemide (Lasix) 40 mg 1X ONCE IVP Last administered on 12/26/19at 11:36; Start 12/26/19 at 11:00; Stop 12/26/19 at 11:03; Status DC Albuterol/ Ipratropium (Duoneb) 3 ml 1X ONCE NEB Last administered on 12/26/19at 11:16; Start 12/26/19 at 11:00; Stop 12/26/19 at 11:03; Status DC Metoprolol Tartrate (Lopressor Vial) 5 mg 1X ONCE IVP ; Start 12/26/19 at 11:15; Stop 12/26/19 at 11:07; Status DC Metoprolol Tartrate (Lopressor Vial) 5 mg 1X ONCE IVP Last administered on 12/26/19at 11:41; Start 12/26/19 at 11:45; Stop 12/26/19 at 11:46; Status DC Azithromycin 250 ml @ 250 mls/hr 1X ONCE IV Last administered on 12/26/19at 12:16; Start 12/26/19 at 11:45; Stop 12/26/19 at 12:44; Status DC Ceftriaxone Sodium (Rocephin) 1 gm 1X ONCE IVP Last administered on 12/26/19at 12:16; Start 12/26/19 at 11:45; Stop 12/26/19 at 11:46; Status DC Digoxin (Lanoxin) 500 mcg 1X ONCE IV Last administered on 12/26/19at 13:23; Start 12/26/19 at 13:15; Stop 12/26/19 at 13:16; Status DC Aspirin (Ecotrin) 325 mg 1X ONCE PO Last administered on 12/26/19at 13:35; Start 12/26/19 at 13:30; Stop 12/26/19 at 13:31; Status DC Ondansetron HCl (Zofran) 4 mg PRN Q4HRS PRN IV NAUSEA/VOMITING; Start 12/26/19 at 15:15 Acetaminophen (Tylenol) 650 mg PRN Q4HRS PRN PO TEMP OVER 100.4F OR MILD PAIN; Start 12/26/19 at 15:15 Docusate Sodium (Colace) 100 mg PRN BID PRN PO CONSTIPATION; Start 12/26/19 at 15:15 Albuterol Sulfate (Ventolin Neb Soln) 2.5 mg PRN Q4HRS PRN NEB SHORTNESS OF BREATH; Start 12/26/19 at 15:15 Guaifenesin (Robitussin) 200 mg PRN Q4HRS PRN PO COUGH; Start 12/26/19 at 15:15 Enoxaparin Sodium (Lovenox 40mg Syringe) 40 mg Q24H SQ Last administered on 12/26/19at 22:03; Start 12/26/19 at 21:00; Stop 12/27/19 at 11:34; Status DC Atorvastatin Calcium (Lipitor) 20 mg HS PO Last administered on 01/02/20at 21:55; Start 12/26/19 at 21:00 Amlodipine Besylate (Norvasc) 5 mg DAILY PO ; Start 12/26/19 at 17:00; Stop 12/26/19 at 17:12; Status DC Carvedilol (Coreg) 25 mg BIDWMEALS PO ; Start 12/26/19 at 17:00; Stop 12/26/19 at 17:12; Status DC Losartan Potassium (Cozaar) 50 mg DAILY PO ; Start 12/26/19 at 17:00; Stop 12/26/19 at 17:12; Status DC Bumetanide (Bumex) 1 mg BID92 IV ; Start 12/26/19 at 15:15; Stop 12/26/19 at 17:14; Status DC Metoprolol Tartrate (Lopressor) 25 mg Q6HRS PO Last administered on 12/29/19at 11:41; Start 12/26/19 at 18:00; Stop 12/29/19 at 12:12; Status DC Bumetanide (Bumex) 1 mg DAILY IV Last administered on 12/30/19at 07:50; Start 12/27/19 at 09:00; Stop 12/30/19 at 13:00; Status DC Perflutren Protein Type A Microsphe (Optison) 0.66 mg STK-MED ONCE IV ; Start 12/27/19 at 08:02; Stop 12/27/19 at 08:02; Status DC Diltiazem HCl 125 mg/Sodium Chloride 125 ml @ 5 mls/hr CONT PRN IV SEE I/O RECORD Last administered on 12/28/19at 02:33; Start 12/27/19 at 09:45; Stop 12/29/19 at 10:18; Status DC Digoxin (Lanoxin) 250 mcg 1X ONCE IV Last administered on 12/27/19at 09:58; Start 12/27/19 at 09:45; Stop 12/27/19 at 09:46; Status DC Heparin Sodium/ Dextrose 250 ml @ 20 mls/hr CONT PRN IV PER PROTOCOL Last admi nistered on 12/27/19at 23:42; Start 12/27/19 at 11:30; Stop 12/29/19 at 10:17; Status DC Heparin Sodium (Porcine) (Heparin Sodium) 4,300 unit PRN Q6HRS PRN IV FOR UFH LEVEL LESS THAN 0.2; Start 12/27/19 at 11:30; Stop 12/29/19 at 10:19; Status DC Info (Anti-Coagulation Monitoring By Pharmacy) 1 each PRN DAILY PRN MC SEE COMMENTS Last administered on 12/31/19at 11:17; Start 12/27/19 at 15:30 Ringer's Solution 1,000 ml @ 50 mls/hr Q20H IV ; Start 12/28/19 at 07:00; Stop 12/28/19 at 18:59; Status DC Sodium Chloride (Normal Saline Flush) 10 ml QSHIFT PRN IV AFTER MEDS AND BLOOD DRAWS; Start 12/27/19 at 17:00 Hydralazine HCl (Apresoline Inj) 10 mg PRN Q4HRS PRN IVP ELEVATED BP, SEE COMMENTS Last administered on 12/29/19at 20:12; Start 12/27/19 at 22:15 Lidocaine HCl (Viscous Lidocaine) 15 ml 1X ONCE SWSW ; Start 12/28/19 at 07:00; Stop 12/28/19 at 07:07; Status DC Lidocaine HCl (Xylocaine 2% Topical 30gm Tube) 1 adan 1X ONCE TP ; Start 12/28/19 at 07:00; Stop 12/28/19 at 07:07; Status DC Benzocaine (Hurricaine One) 2 spray 1X ONCE MM ; Start 12/28/19 at 07:00; Stop 12/28/19 at 07:07; Status DC Diltiazem HCl (Cardizem 24hr Cd) 180 mg DAILY PO Last administered on 12/28/19at 09:17; Start 12/28/19 at 09:00; Stop 12/29/19 at 10:18; Status DC Apixaban (Eliquis) 5 mg BID PO Last administered on 12/31/19at 21:26; Start 12/29/19 at 09:00; Stop 01/01/20 at 18:07; Status DC Apixaban (Eliquis) 5 mg 1X ONCE PO Last administered on 12/28/19at 15:15; Start 12/28/19 at 15:15; Stop 12/28/19 at 15:16; Status DC Apixaban (Eliquis) 5 mg 1X ONCE PO Last administered on 12/28/19at 23:40; Start 12/28/19 at 23:00; Stop 12/28/19 at 23:01; Status DC Diltiazem HCl (Cardizem 24hr Cd) 120 mg 1X ONCE PO ; Start 12/28/19 at 17:15; Stop 12/28/19 at 17:16; Status DC Diltiazem HCl (Cardizem 24hr Cd) 240 mg DAILY PO Last administered on 01/02/20at 09:04; Start 12/29/19 at 09:00; Stop 01/02/20 at 19:37; Status DC Diltiazem HCl (Cardizem 24hr Cd) 120 mg 1X ONCE PO Last administered on 12/28/19at 17:36; Start 12/28/19 at 17:30; Stop 12/28/19 at 17:31; Status DC Metoprolol Tartrate (Lopressor) 75 mg BID PO Last administered on 12/30/19at 07:49; Start 12/29/19 at 21:00; Stop 12/30/19 at 12:06; Status DC Diltiazem HCl (Cardizem 24hr Cd) 120 mg 1X ONCE PO Last administered on 12/29/19at 17:02; Start 12/29/19 at 17:30; Stop 12/29/19 at 17:31; Status DC Metoprolol Tartrate (Lopressor) 100 mg BID PO Last administered on 01/03/20at 11:08; Start 12/30/19 at 21:00; Stop 01/03/20 at 14:05; Status DC Lisinopril (Prinivil) 20 mg BID PO Last administered on 01/03/20at 09:06; Start 12/30/19 at 12:15 Furosemide (Lasix) 40 mg 1X ONCE IVP Last administered on 12/30/19at 13:21; Start 12/30/19 at 13:15; Stop 12/30/19 at 13:16; Status DC Furosemide (Lasix) 40 mg DAILY PO Last administered on 01/03/20at 09:05; Start 12/31/19 at 09:00 Amiodarone HCl 450 mg/Dextrose 259 ml @ 0 mls/hr CONT PRN IV SEE I/O RECORD Last administered on 12/30/19at 23:12; Start 12/30/19 at 23:00; Stop 01/03/20 at 11:53; Status DC Amiodarone HCl 150 mg/Dextrose 103 ml @ 618 mls/hr 1X ONCE IV Last administered on 12/30/19at 23:12; Start 12/30/19 at 23:00; Stop 12/30/19 at 23:09; Status DC Amiodarone HCl (Cordarone) 200 mg DAILY PO Last administered on 01/03/20at 09:05; Start 01/01/20 at 09:00 Amiodarone HCl (Cordarone) 200 mg 1X ONCE PO Last administered on 12/31/19at 21:24; Start 12/31/19 at 21:00; Stop 12/31/19 at 21:01; Status DC Sodium Chloride 1,000 ml @ 60 mls/hr 1X ONCE IV Last administered on 01/01/20at 11:59; Start 01/01/20 at 11:45; Stop 01/02/20 at 04:24; Status DC Ondansetron HCl (Zofran) 4 mg PRN Q6HRS PRN IV NAUSEA/VOMITING; Start 01/02/20 at 07:00; Stop 01/02/20 at 21:00; Status DC Fentanyl Citrate (Fentanyl 2ml Vial) 25 mcg PRN Q5MIN PRN IV MILD PAIN 1-3; Start 01/02/20 at 07:00; Stop 01/02/20 at 19:39; Status DC Fentanyl Citrate (Fentanyl 2ml Vial) 50 mcg PRN Q5MIN PRN IV MODERATE TO SEVERE PAIN; Start 01/02/20 at 07:00; Stop 01/02/20 at 19:39; Status DC Morphine Sulfate (Morphine Sulfate) 1 mg PRN Q10MIN PRN IV SEVERE PAIN 7-10; Start 01/02/20 at 07:00; Stop 01/02/20 at 21:00; Status DC Ringer's Solution 1,000 ml @ 30 mls/hr Q24H IV ; Start 01/02/20 at 07:00; Stop 01/02/20 at 18:59; Status DC Hydromorphone HCl (Dilaudid) 0.5 mg PRN Q10MIN PRN IV SEV PAIN, Second choice; Start 01/02/20 at 07:00; Stop 01/02/20 at 19:39; Status DC Prochlorperazine Edisylate (Compazine) 5 mg PACU PRN PRN IV NAUSEA, MRX1; Start 01/02/20 at 07:00; Stop 01/02/20 at 21:00; Status DC Sodium Chloride (Normal Saline Flush) 10 ml QSHIFT PRN IV AFTER MEDS AND BLOOD DRAWS; Start 01/01/20 at 16:45 Sodium Chloride 1,000 ml @ 75 mls/hr [id number] IV Last administered on 01/02/20at 07:48; Start 01/02/20 at 07:30; Stop 01/03/20 at 11:54; Status DC Benzocaine (Hurricaine One) 2 spray 1X ONCE MM ; Start 01/02/20 at 07:00; Stop 01/02/20 at 07:04; Status DC Lidocaine HCl (Viscous Lidocaine) 15 ml 1X ONCE SWSW ; Start 01/02/20 at 07:00; Stop 01/02/20 at 07:04; Status DC Lidocaine HCl (Xylocaine 2% Topical 30gm Tube) 1 adan 1X ONCE TP ; Start 01/02/20 at 07:00; Stop 01/02/20 at 07:04; Status DC Iodixanol (Visipaque 320) 100 ml STK-MED ONCE .ROUTE ; Start 01/02/20 at 10:43; Stop 01/02/20 at 10:43; Status DC Lidocaine HCl (Xylocaine-Mpf 1% 2ml Vial) 2 ml STK-MED ONCE .ROUTE ; Start 01/02/20 at 10:43; Stop 01/02/20 at 10:43; Status DC Heparin Sodium/ Sodium Chloride 1,500 ml @ As Directed STK-MED ONCE .ROUTE ; Start 01/02/20 at 10:43; Stop 01/02/20 at 10:43; Status DC Fentanyl Citrate (Fentanyl 2ml Vial) 100 mcg STK-MED ONCE .ROUTE ; Start 01/02/20 at 10:58; Stop 01/02/20 at 10:58; Status DC Midazolam HCl (Versed) 5 mg STK-MED ONCE .ROUTE ; Start 01/02/20 at 10:58; Stop 01/02/20 at 10:58; Status DC Heparin Sodium (Porcine) (Heparin Sodium) 10,000 unit STK-MED ONCE .ROUTE ; Start 01/02/20 at 10:58; Stop 01/02/20 at 10:59; Status DC Verapamil HCl (Verapamil) 5 mg STK-MED ONCE .ROUTE ; Start 01/02/20 at 10:58; Stop 01/02/20 at 10:59; Status DC Nitroglycerin (Nitroglycerin) 200 mcg STK-MED ONCE .ROUTE ; Start 01/02/20 at 10:58; Stop 01/02/20 at 10:59; Status DC Nitroglycerin (Nitroglycerin) 200 mcg 1X ONCE IART Last administered on 01/02/20at 12:20; Start 01/02/20 at 11:45; Stop 01/02/20 at 11:46; Status DC Verapamil HCl (Verapamil) 2.5 mg 1X ONCE IART Last administered on 01/02/20at 12:21; Start 01/02/20 at 11:45; Stop 01/02/20 at 11:46; Status DC Heparin Sodium (Porcine) (Heparin Sodium) 2,500 unit 1X ONCE IART Last administered on 01/02/20at 12:22; Start 01/02/20 at 11:45; Stop 01/02/20 at 11:46; Status DC Heparin Sodium/ Sodium Chloride (HEPARIN for ARTERIAL LINE FLUSH) 1,000 unit 1X ONCE IART Last administered on 01/02/20at 12:19; Start 01/02/20 at 11:45; Stop 01/02/20 at 11:46; Status DC Heparin Sodium/ Sodium Chloride (HEPARIN for ARTERIAL LINE FLUSH) 1,000 unit 1X ONCE IART Last administered on 01/02/20at 12:19; Start 01/02/20 at 11:45; Stop 01/02/20 at 11:46; Status DC Midazolam HCl (Versed) 5 mg 1X ONCE IV Last administered on 01/02/20at 12:20; Start 01/02/20 at 11:45; Stop 01/02/20 at 11:46; Status DC Fentanyl Citrate (Fentanyl 2ml Vial) 100 mcg 1X ONCE IV Last administered on 01/02/20at 12:20; Start 01/02/20 at 11:45; Stop 01/02/20 at 11:46; Status DC Iodixanol (Visipaque 320) 100 ml 1X ONCE IART Last administered on 01/02/20at 12:19; Start 01/02/20 at 11:45; Stop 01/02/20 at 11:46; Status DC Lidocaine HCl (Xylocaine-Mpf 1% 2ml Vial) 2 ml 1X ONCE INJ Last administered on 01/02/20at 12:19; Start 01/02/20 at 11:45; Stop 01/02/20 at 11:46; Status DC Info (CONTRAST GIVEN -- Rx MONITORING) 1 each PRN DAILY PRN MC SEE COMMENTS; Start 01/02/20 at 11:45; Stop 01/04/20 at 11:44 Iodixanol (Visipaque 320) 100 ml STK-MED ONCE .ROUTE ; Start 01/02/20 at 12:12; Stop 01/02/20 at 12:13; Status DC Amlodipine Besylate (Norvasc) 10 mg DAILY PO ; Start 01/04/20 at 09:00 Metoprolol Succinate (Toprol Xl) 100 mg DAILY PO ; Start 01/04/20 at 09:00 Apixaban (Eliquis) 5 mg BID PO ; Start 01/03/20 at 21:00 Active Scripts Active Eliquis (Apixaban) 5 Mg Tablet 5 Mg PO BID 90 Days Norvasc (Amlodipine Besylate) 10 Mg Tablet 10 Mg PO DAILY 90 Days Furosemide 40 Mg Tablet 40 Mg PO DAILY 90 Days Lisinopril 40 Mg Tablet 20 Mg PO BID 90 Days Metoprolol Succinate ( Xl ) (Metoprolol Succinate) 100 Mg Tab.er.24h 1 Tab PO DAILY 90 Days Amiodarone Hcl 200 Mg Tablet 200 Mg PO DAILY 90 Days Reported Amlodipine-Valsartan 10-160 mg (Amlodipine/Valsartan) 1 Each Tablet 0.5 Tab PO DAILY 30 Days Atorvastatin Calcium 20 Mg Tablet 20 Mg PO HS Carvedilol 25 Mg Tablet 25 Mg PO BIDWMEALS Vital Signs Vital Signs Date Time Temp Pulse Resp B/P (MAP) Pulse Ox O2 Delivery O2 Flow Rate FiO2 01/03/20 14:29 147/70 (95) 01/03/20 11:08 60 01/03/20 10:26 97.8 18 98 Room Air 97.8 01/02/20 12:29 2.0 Labs Laboratory Tests Test 01/02/20 04:42 White Blood Count 11.4 x10^3/uL (4.0-11.0) Red Blood Count 4.61 x10^6/uL (4.30-5.70) Hemoglobin 13.0 g/dL (13.0-17.5) Hematocrit 39.6 % (39.0-53.0) Mean Corpuscular Volume 86 fL (79-100) Mean Corpuscular Hemoglobin 28 pg (25-35) Mean Corpuscular Hemoglobin Concent 33 g/dL (31-37) Red Cell Distribution Width 15.0 % (11.5-14.5) Platelet Count 201 x10^3/uL (140-400) Neutrophils (%) (Auto) 68 % (31-73) Lymphocytes (%) (Auto) 18 % (24-48) Monocytes (%) (Auto) 11 % (0-9) Eosinophils (%) (Auto) 3 % (0-3) Basophils (%) (Auto) 1 % (0-3) Neutrophils # (Auto) 7.8 x10^3/uL (1.8-7.7) Lymphocytes # (Auto) 2.0 x10^3/uL (1.0-4.8) Monocytes # (Auto) 1.2 x10^3/uL (0.0-1.1) Eosinophils # (Auto) 0.3 x10^3/uL (0.0-0.7) Basophils # (Auto) 0.1 x10^3/uL (0.0-0.2) Sodium Level 143 mmol/L (136-145) Potassium Level 3.9 mmol/L (3.5-5.1) Chloride Level 106 mmol/L (98-107) Carbon Dioxide Level 27 mmol/L (21-32) Anion Gap 10 (6-14) Blood Urea Nitrogen 25 mg/dL (8-26) Creatinine 1.6 mg/dL (0.7-1.3) Estimated GFR (Cockcroft-Gault) 43.9 Glucose Level 95 mg/dL (70-99) Calcium Level 8.4 mg/dL (8.5-10.1) Magnesium Level 2.2 mg/dL (1.8-2.4) Allergies Allergies Coded Allergies Type Severity Reaction Last Updated Verified sulfamethoxazole Allergy Severe Hives 12/28/19 Yes trimethoprim Allergy Severe Hives 12/28/19 Yes Disposition/Orders: D/C to Home ELIZABETH SCHAFFER MD Jan 03, 2020 14:40
[2020-01-03] MEDS ORDERED: AMLO10TA8 PO (14:43)
[2020-01-03] MEDS ORDERED: ALBU2.5V8 NEB (14:43)
--- NOTE | 2020-01-03 14:44 | DISCH ---
DISCHARGE INSTRUCTIONS Condition on Discharge Condition on Discharge: Stable Activity After Discharge Activity Instructions for Disc: Avoid exertion, Progressive ambulation Driving Instructions after Dis: Do not drive Diet after Discharge Diet after Discharge: Cardiac Checks after Discharge Checks after discharge: Check blood press - daily Contacting the DR. after DC Call your doctor for: If your condition worsens ELIZABETH SCHAFFER MD Jan 03, 2020 14:44
--- NOTE | 2020-01-03 15:42 | NUR ---
Discharge Note: MILENA WESLEY[address] Discharge instructions and discharge home medications reviewed with Patient and his and a copy given. All questions have been answered and understanding verbalized. Extensive teaching given to patient about heart failure.
[2020-01-03] MEDS ORDERED: APIXABAN 5 MG TABLET. PO SCH (21:00)
[2020-01-04] MEDS ORDERED: amLODIPine BESYLATE 10 MG TABLET PO SCH (09:00)
[2020-01-04] MEDS ORDERED: METOPROLOL SUCC 24HR ER 100 MG TAB.ER.24H. PO SCH (09:00)
== END 2020-01-03 15:30 | disposition home or self-care (01) | DRG 286 ==
LOC: ER 10:12 → 1 WEST ICU 12:13 → 2 NORTH 12-27 20:05
PROVIDERS: ADMIT Internal Medicine; ATTEND Internal Medicine
PROC: B2111ZZ Fluoroscopy of Multiple Coronary Arteries using Low Osmolar Contrast (ICD-10-PCS; principal; 2020-01-02)
PROC: 4A023N7 Measurement of Cardiac Sampling and Pressure, Left Heart, Percutaneous Approach (ICD-10-PCS; 2020-01-02)
PROC: B2151ZZ Fluoroscopy of Left Heart using Low Osmolar Contrast (ICD-10-PCS; 2020-01-02)
DX: I13.0 Hypertensive heart and chronic kidney disease with heart failure and stage 1 through stage 4 chronic kidney disease, or unspecified chronic kidney disease (principal); I50.43 Acute on chronic combined systolic (congestive) and diastolic (congestive) heart failure; E66.2 Morbid (severe) obesity with alveolar hypoventilation; I47.2 Ventricular tachycardia; I48.92 Unspecified atrial flutter; Z68.43 Body mass index [BMI] 50.0-59.9, adult; D72.829 Elevated white blood cell count, unspecified; I42.8 Other cardiomyopathies; E78.5 Hyperlipidemia, unspecified; I16.0 Hypertensive urgency; I48.91 Unspecified atrial fibrillation; I87.2 Venous insufficiency (chronic) (peripheral); J44.9 Chronic obstructive pulmonary disease, unspecified; N18.3 Chronic kidney disease, stage 3 (moderate); M19.90 Unspecified osteoarthritis, unspecified site; Z88.8 Allergy status to other drugs, medicaments and biological substances; Z87.891 Personal history of nicotine dependence
CPT/HCPCS: 93458; 96365; 96375; 99291; C8929; 36415; 71045; 71250; 78582; 80048; 80061; 80069; 80076; 81001; 83605; 83690; 83735; 83880; 84443; 84484; 85025; 85027; 85379; 85520; 85610; 85730; 93005; 93970; 94640; 96374; 99152; 99153; A9540; A9558; C1769; C1892; J0282; J0360; J0456; J0696; J1160; J1644; J1650; J1940; J2250; J3010; J3490; J7030; J7620; Q9967; G0378

== ENCOUNTER → 2020-04-17 | Outpatient (CLI) | payer OTHER ==
[~2020-04-17] MED LIST: ALBU2.5V8 NEB; AMIO200T4 PO; AMLO-308 PO; AMLO10TA4 PO; AMLO10TA8 PO; APIX5TAB PO; ATOR20TA58 PO; CARV25TA2 PO; FURO40TA4 PO; LISI-130 PO; METO-247 PO
--- NOTE | 2020-04-17 13:22 | CARD ---
MR#: [id number] Date of Study: 04/17/2020 Ordering Physician: GRICELDA FLOWERS, Referring Physician: GRICELDA FLOWERS, Tech: Bonny Collazo APPROVED REPORT EXAM: Two-dimensional and M-mode echocardiogram with Doppler and color Doppler. Other Information Quality : AverageHR: 53bpm Technically limited study due to body habitus. INDICATION Cardiomyopathy RISK FACTORS Hypertension Previous smoker 2D DIMENSIONS Left Atrium(2D)3.6 (1.6-4.0cm)IVSd1.2 (0.7-1.1cm) Aortic Root(2D)3.7 (2.0-3.7cm)LVDd6.8 (3.9-5.9cm) LVOT Diameter2.3 (1.8-2.4cm)PWd1.2 (0.7-1.1cm) LVDs4.4 (2.5-4.0cm)FS (%) 34.8 % SV147.6 mlLVEF(%)62.7 (>50%) Aortic Valve AoV Peak Garrick.214.5cm/sAoV VTI46.7cm AO Peak GR.18.4mmHgLVOT Peak Garrick.107.0cm/s LVOT VTI 26.88cmAO Mean GR.10mmHg STEVIE (VMAX)1.35pp5LIM (VTI)2.34cm2 AI P 1/2 Srft509mh Mitral Valve MV E Eaiifulw45.7cm/sMV DECEL [id number] MV A Amaudkgd173.9cm/sMV E Mean Gr.2mmHg MV RIY169cnQ/A Ratio0.7 MVA (PHT)1.96cm2 TDI E/Lateral E'8.0E/Medial E'8.6 Pulmonary Valve PV Peak Rbxaudsn97.8cm/sPV Peak Grad.4mmHg Tricuspid Valve TR P. Mvzvrfel243kn/sRAP GBQZEQCQ1opKj TR Peak Gr.95raEiRJOX10nrEo Pulmonary Vein S1 Ctdetkak90.9cm/sD2 Uzilxesi95.3cm/s PVa [id number] LEFT VENTRICLE The left ventricle is normal size. There is mild concentric left ventricular hypertrophy. The left ve ntricular systolic function is normal. The Ejection Fraction is 50-55%. There is normal LV segmental wall motion. Transmitral Doppler flow pattern is Grade I-abnormal relaxation pattern. RIGHT VENTRICLE The right ventricle is normal size. There is normal right ventricular wall thickness. The right ventr icular systolic function is normal. ATRIA The left atrium size is normal. The right atrium size is normal. The interatrial septum is intact wit h no evidence for an atrial septal defect or patent foramen ovale as noted on 2-D or Doppler imaging. AORTIC VALVE The aortic valve is normal in structure and function. Doppler and Color Flow revealed mild aortic reg urgitation. There is no significant aortic valvular stenosis. MITRAL VALVE The mitral valve is normal in structure and function. There is no evidence of mitral valve prolapse. There is no mitral valve stenosis. Doppler and Color-flow revealed trace mitral regurgitation. TRICUSPID VALVE The tricuspid valve is normal in structure and function. Doppler and Color Flow revealed trace tricus pid regurgitation with an estimated PAP of 36 mmHg. There is no tricuspid valve stenosis. PULMONIC VALVE The pulmonic valve is not well visualized. Doppler and Color Flow revealed no pulmonic valvular regur gitation. GREAT VESSELS The aortic root is normal in size. The IVC is dilated. PERICARDIAL EFFUSION There is no evidence of significant pericardial effusion. Critical Notification Critical Value: No <Conclusion> The left ventricular systolic function is normal. The Ejection Fraction is 50-55%. There is normal LV segmental wall motion. Transmitral Doppler flow pattern is Grade I-abnormal relaxation pattern. Mild aortic regurgitation. Trace mitral regurgitation. Trace tricuspid regurgitation with an estimated PAP of 36 mmHg. There is no evidence of significant pericardial effusion. Signed by : Roberto Quinn, Electronically Approved : 04/17/2020 13:22:09
== END | disposition home or self-care (01) ==
LOC: ECHO 10:20
PROVIDERS: ATTEND Internal Medicine Cardiovascular Disease
DX: I11.9 Hypertensive heart disease without heart failure (principal); I42.9 Cardiomyopathy, unspecified
CPT/HCPCS: 93306

== ENCOUNTER → 2020-10-27 | Outpatient (CLI) | payer OTHER ==
[~2020-10-27] MED LIST changes: -AMIO200T4 PO; +AMIO200T6 PO; +AMLO-187 PO; -AMLO10TA8 PO
--- NOTE | 2020-10-27 14:43 | CARD ---
MR#: [id number] Date of Study: 10/27/2020 Ordering Physician: GRICELDA FLOWERS, Referring Physician: GRICELDA FLOWERS, Tech: Suzanne Grissom [facility] APPROVED REPORT EXAM: Two-dimensional and M-mode echocardiogram with Doppler and color Doppler. Other Information Quality : LimitedHR: 52bpm Rhythm : NSR INDICATION Hypertension/HCVD RISK FACTORS Hypertension Obesity Hyperlipidemia 2D DIMENSIONS RVDd3.2 (2.9-3.5cm)Left Atrium(2D)4.4 (1.6-4.0cm) IVSd1.2 (0.7-1.1cm)Aortic Root(2D)3.5 (2.0-3.7cm) LVDd6.3 (3.9-5.9cm)LVOT Diameter2.5 (1.8-2.4cm) PWd1.2 (0.7-1.1cm)LVDs4.3 (2.5-4.0cm) FS (%) 31.8 %SV119.7 ml LVEF(%)58.7 (>50%) Aortic Valve AoV Peak Garrick.192.4cm/sAoV VTI51.0cm AO Peak GR.14.8mmHgLVOT Peak Garrick.96.5cm/s AO Mean GR.7mmHgAVA (VMAX)2.41cm2 Mitral Valve MV E Wljuykgd88.4cm/sMV E Peak Gr.13mmHg MV DECEL [id number] A Zvzxhqgt533.5cm/s MV E Mean Gr.7mmHgE/A Ratio0.7 Pulmonary Valve PV Peak Gvounvqq32.1cm/s Tricuspid Valve TR P. Ptkrydkv108ha/sTR Peak Gr.17mmHg Pulmonary Vein S1 Ayxmxdgm51.8cm/sD2 Crzjcmhb30.8cm/s PVa [id number] LEFT VENTRICLE The Left Ventricle is mildly dilated. There is borderline to mild concentric left ventricular hypertr ophy. The systolic function is mildly impaired. Estimated ejection fraction 45-50%. There is mild gl obal hypokinesis. The left ventricular diastolic function and filling is normal for age. No left vent ricle thrombus noted on this study. RIGHT VENTRICLE The right ventricle is mildly dilated. There is normal right ventricular wall thickness. The right ve ntricular systolic function is normal. ATRIA The left atrium is borderline dilated. The right atrium is borderline dilated. The interatrial septum is intact with no evidence for an atrial septal defect or patent foramen ovale as noted on 2-D or Do ppler imaging. AORTIC VALVE The aortic valve is normal in structure and function. Doppler and Color Flow revealed mild aortic reg urgitation. There is no significant aortic valvular stenosis. MITRAL VALVE The mitral valve is normal in structure and function. There is no evidence of mitral valve prolapse. There is no mitral valve stenosis. Doppler and Color-flow revealed trace to mild mitral regurgitation . TRICUSPID VALVE The tricuspid valve is normal in structure and function. Doppler and Color Flow revealed trace tricus pid regurgitation. Estimated PAP 23-25 mmHg. There is no tricuspid valve stenosis. PULMONIC VALVE Doppler and Color Flow revealed no pulmonic valvular regurgitation. There is no pulmonic valvular rosaura nosis. GREAT VESSELS Aortic root is upper limits of normal. The IVC is normal in size and collapses >50% with inspiration. PERICARDIAL EFFUSION There is no evidence of significant pericardial effusion. Critical Notification Critical Value: No <Conclusion> The systolic function is mildly impaired. Estimated ejection fraction 45-50%. There is mild global hypokinesis. Signed by : Balta Norris, Electronically Approved : 10/27/2020 14:42:49
== END ==
LOC: ECHO 12:50
PROVIDERS: ATTEND Internal Medicine Cardiovascular Disease
DX: I08.0 Rheumatic disorders of both mitral and aortic valves (principal); I42.9 Cardiomyopathy, unspecified
CPT/HCPCS: 93306

== ENCOUNTER → 2021-04-14 | Outpatient (CLI) | payer OTHER ==
--- NOTE | 2021-04-14 16:43 | CARD ---
MR#: [id number] Date of Study: 04/14/2021 Ordering Physician: GRICELDA FLOWERS, Referring Physician: GRICELDA FLOWERS, Tech: Suzanne Grissom [facility] APPROVED REPORT EXAM: Two-dimensional and M-mode echocardiogram with Doppler and color Doppler. Other Information Quality : Technically LimitedHR: 52bpm Rhythm : NSR INDICATION Cardiomyopathy RISK FACTORS Hypertension Obesity Hyperlipidemia 2D DIMENSIONS IVSd1.0 (0.7-1.1cm)LVDd6.2 (3.9-5.9cm) PWd1.2 (0.7-1.1cm)IVSs1.8 (0.8-1.2cm) LVDs4.0 (2.5-4.0cm)FS (%) 35.9 % PWs2.1 (0.8-1.2cm)SV124.4 ml LVEF(%)64.5 (>50%) LEFT VENTRICLE The left ventricle is normal size. There is borderline to mild concentric left ventricular hypertroph y. The left ventricular systolic function is normal. Estimated ejection fraction 50-55% There is nor mal LV segmental wall motion. RIGHT VENTRICLE The right ventricle is normal size. There is normal right ventricular wall thickness. The right ventr icular systolic function is normal. ATRIA The left atrium size is normal. The right atrium size is normal. The interatrial septum is intact wit h no evidence for an atrial septal defect or patent foramen ovale as noted on 2-D or Doppler imaging. AORTIC VALVE The aortic valve is normal in structure and function. There is no significant aortic valvular stenosi s. MITRAL VALVE The mitral valve is normal in structure and function. There is no evidence of mitral valve prolapse. There is no mitral valve stenosis. TRICUSPID VALVE The tricuspid valve is normal in structure and function. Doppler and Color Flow revealed no tricuspid valve regurgitation noted. There is no tricuspid valve stenosis. GREAT VESSELS The aortic root is normal in size. The ascending aorta is normal in size. PERICARDIAL EFFUSION There is no evidence of significant pericardial effusion. Critical Notification Critical Value: No <Conclusion> The left ventricular systolic function is normal. Estimated ejection fraction 50-55% There is normal LV segmental wall motion. There is no evidence of significant pericardial effusion. Signed by : Roberto Quinn, Electronically Approved : 04/14/2021 16:42:44
== END ==
LOC: ECHO 09:55
PROVIDERS: ATTEND Internal Medicine Cardiovascular Disease
DX: I42.9 Cardiomyopathy, unspecified (principal); I51.7 Cardiomegaly
CPT/HCPCS: 93308

== ENCOUNTER → 2022-02-03 | Day surgery (SDC) | payer OTHER ==
[~2022-02-03] VITALS: Ht 182.9 cm; Wt 177.7 kg
[~2022-02-03] MED LIST changes: +AMIO200T53 PO; -AMIO200T6 PO; +CALC500T54 PO; +CALC625T20 PO; +HYDROmorphone 2 MG/ML INJ. IVP PRN; +IV RINGERS,LACTATED 1000ML 1,000 ML IV SCH; +MORPHINE SULFATE 2 MG/ML INJ. IVP PRN; +MULT-445 PO; +PROCHLORPERAZINE 10 MG/2 ML VIAL. IVP PRN; +PROPOFOL 10 MG/ML (20ML) VIAL. IV ONE; +SACU1TAB7 PO; +fentaNYL PF VIAL 100 MCG/2 ML VIAL IVP PRN
[2022-02-03 06:22] VITALS: BP 172/77
[2022-02-03 07:45] VITALS: BP 167/76
== END | disposition home or self-care (01) ==
LOC: ENDOS 05:55
PROVIDERS: ATTEND Internal Medicine Gastroenterology
DX: Z12.11 Encounter for screening for malignant neoplasm of colon (principal); K57.30 Diverticulosis of large intestine without perforation or abscess without bleeding; K64.8 Other hemorrhoids; K63.89 Other specified diseases of intestine; I48.91 Unspecified atrial fibrillation; E78.00 Pure hypercholesterolemia, unspecified; I11.0 Hypertensive heart disease with heart failure; I50.9 Heart failure, unspecified; J44.9 Chronic obstructive pulmonary disease, unspecified; E66.9 Obesity, unspecified; M19.90 Unspecified osteoarthritis, unspecified site; Z86.010 Personal history of colon polyps; Z79.899 Other long term (current) drug therapy; Z98.890 Other specified postprocedural states; Z87.891 Personal history of nicotine dependence; Z88.2 Allergy status to sulfonamides; Z88.8 Allergy status to other drugs, medicaments and biological substances; Z72.89 Other problems related to lifestyle
CPT/HCPCS: G0105; J2704; 45378